=== PATIENT | female | born 1975 | race Caucasian/White ===

== ENCOUNTER 2016-04-05 17:32 | Emergency (ER) | payer OTHER ==
[~2016-04-05] VITALS: Ht 162.6 cm; Wt 111.8 kg
[~2016-04-05 17:32] MED LIST: ADVA500A INH; AMLO10 PO; CYMB60CA PO; FE FCAP; MONT10TA2 PO; PERC7.5T13 PO; PREV30CA11 PO; PROM25TA5 PO; VENTAER INH; XANA1TAB2 PO; ZYRT10CA PO
[2016-04-05 17:34] VITALS: BP 212/98; PULSE 122; RESP 14; TEMP 98.7; O2SAT 97
[2016-04-05 18:25] LABS: BACTERIA, URINE FEW /hpf; BLOOD, URINE MOD (NEG); COMMENT (UR) CULT NOT INDICATED; CULTURE IF INDICATED CULT NOT INDICATED; GLUCOSE,URINE NEG (NEG); HYALINE CAST, URINE 1 /lpf (RARE); KETONE, URINE NEG (NEG); MUCUS URINE FEW /lpf (OCC); NITRITE,URINE NEG (NEG); PH, URINE 6.5 (5.0-8.5); SQUAMOUS EPITHELIAL CELL URINE 1 /hpf (0-5); URINE COLOR YELLOW (YELLW/STRAW)
[2016-04-06] MEDS ORDERED: ZOFR4TAB3 SL (06:42)
[2016-04-06] MEDS ORDERED: CIPR-9 PO (06:43)
== END 2016-04-05 22:18 | disposition left against medical advice (07) ==
LOC: NETRI 17:32
DX: R10.9 Unspecified abdominal pain (principal); Z53.21 Procedure and treatment not carried out due to patient leaving prior to being seen by health care provider
CPT/HCPCS: 81001; 99281

== ENCOUNTER 2016-04-06 05:12 | Emergency (ER) | payer OTHER ==
[~2016-04-06] VITALS: Ht 162.6 cm; Wt 111.5 kg
[2016-04-06 05:26] VITALS: BP 157/99; PULSE 87; RESP 16; TEMP 98.2; O2SAT 98
[2016-04-06] MEDS ORDERED: SODIUM CHLOR 0.9% 1000 ML INJ 1,000 ML IV ONE (05:41)
[2016-04-06] MEDS ORDERED: HYDROmorphone HCL PF 1 MG/ML VIAL IVS ONE (05:45)
[2016-04-06] MEDS ORDERED: ONDANSETRON HCL 4 MG/2 ML VIAL IVP ONE (05:45)
[2016-04-06] MEDS ORDERED: SODIUM CHLORIDE 0.9% FLUSH 5 ML FLUSH IVF PRN (05:45)
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
[2016-04-06 06:04] LABS: BASOPHIL # 0.2 TH/MM3 (0-0.2); BASOPHIL % 1.2 % (0.0-2.0); BLOOD, URINE LARGE (NEG); EOSINOPHIL # 0.6 TH/MM3 (0-0.4); EOSINOPHIL % 4.5 % (0.0-4.0); GLUCOSE,URINE NEG (NEG); HEMATOCRIT 43.2 % (35.0-46.0); KETONE, URINE NEG (NEG); LYMPH % 28.2 % (9.0-44.0); LYMPHOCYTE # 3.6 TH/MM3 (1.0-4.8); MEAN CELL VOLUME 80.3 FL (80.0-100.0); MEAN CORPUSCULAR HEMOGLOBIN 26.2 PG (27.0-34.0); MEAN CORPUSCULAR HGB CONC 32.6 % (32.0-36.0); MONO % 4.1 % (0.0-8.0); NITRITE,URINE NEG (NEG); PLATELET COUNT 455 TH/MM3 (150-450); RED BLOOD COUNT 5.38 MIL/MM3 (4.00-5.30); RED CELL DISTRIBUTION WIDTH 14.8 % (11.6-17.2); WHITE BLOOD COUNT 12.9 TH/MM3 (4.0-11.0)
[2016-04-06 06:09] LABS: HEMO FLAGS AUTO DIFF
[2016-04-06 06:11] LABS: POTASSIUM 3.4 MEQ/L (3.5-5.1)
[2016-04-06 06:14] LABS: BICARBONATE 23.9 MEQ/L (21.0-32.0); METHOD OF COLLECTION CLEAN CATCH; MUCUS URINE FEW /lpf (OCC); URINE COLOR YELLOW (YELLW/STRAW)
[2016-04-06 06:15] LABS: BACTERIA, URINE MOD /hpf; RBC, URINE 100-200 /hpf (0-3); SQUAMOUS EPITHELIAL CELL URINE 0-5 /hpf (0-5)
[2016-04-06 06:16] LABS: COMMENT (UR) CULTURE INDICATED; CULTURE IF INDICATED CULTURE INDICATED
--- NOTE | 2016-04-06 06:27 | RADHPO ---
EXAM DATE/TIME: 04/06/2016 05:58 [facility] COMPARISON: CT ABDOMEN & PELVIS W/O CONTRAST, May 31, 2015, 0:24. INDICATIONS : Right flank pain. Micro hematuria. ORAL CONTRAST: No oral contrast ingested. RADIATION DOSE: 23.08 CTDIvol (mGy) MEDICAL HISTORY : Hypertension. SURGICAL HISTORY : Hysterectomy. ENCOUNTER: Initial ACUITY: 2 days PAIN SCALE: 8/10 LOCATION: Right flank TECHNIQUE: Volumetric scanning of the abdomen and pelvis was performed. Using automated exposure control and ad justment of the mA and/or kV according to patient size, radiation dose was kept as low as reasonably achievable to obtain optimal diagnostic quality images. FINDINGS: LOWER LUNGS: Linear scarring within the left base is stable. LIVER: Homogeneous density without lesion. There is no dilation of the biliary tree. No calcified gallston es. SPLEEN: Normal size without lesion. PANCREAS: Within normal limits. KIDNEYS: Normal in size and shape. There is no mass or hydronephrosis. A 1-2 mm stone is seen involving the r ight kidney. No ureteral stones. ADRENAL GLANDS: Within normal limits. VASCULAR: There is no aortic aneurysm. BOWEL/MESENTERY: The stomach, small bowel, and colon demonstrate no acute abnormality. There is no free intraperitone al air or fluid. ABDOMINAL WALL: Within normal limits. RETROPERITONEUM: There is no lymphadenopathy. BLADDER: No wall thickening or mass. REPRODUCTIVE: Within normal limits. INGUINAL: There is no lymphadenopathy or hernia. MUSCULOSKELETAL: Within normal limits for patient age. CONCLUSION: 1. Stable 1-2 mm nonobstructing right renal stone. Juancho Love Jr., MD on April 06, 2016 at 6:20 Board Certified Radiologist. This report was verified electronically.
[2016-04-06] MEDS ORDERED: ONDANSETRON HCL 4 MG/2 ML VIAL IV ONE (06:30)
[2016-04-06] MEDS ORDERED: HYDROmorphone HCL PF 1 MG/ML VIAL IVP ONE (06:30)
[2016-04-06 06:32] LABS: SCAN/DIFF AUTO DIFF CONFIRMED
[2016-04-06] MEDS ORDERED: ZOFR4TAB3 SL (06:42)
[2016-04-06] MEDS ORDERED: CIPR-9 PO (06:43)
[2016-04-06 06:55] VITALS: BP 127/76
== END 2016-04-06 06:58 | disposition home or self-care (01) ==
LOC: PHED 05:12
DX: N39.0 Urinary tract infection, site not specified (principal); G89.29 Other chronic pain; I10 Essential (primary) hypertension; F17.200 Nicotine dependence, unspecified, uncomplicated; Z87.442 Personal history of urinary calculi; Z86.2 Personal history of diseases of the blood and blood-forming organs and certain disorders involving the immune mechanism; Z86.79 Personal history of other diseases of the circulatory system; Z87.19 Personal history of other diseases of the digestive system; Z87.39 Personal history of other diseases of the musculoskeletal system and connective tissue; Z86.69 Personal history of other diseases of the nervous system and sense organs
CPT/HCPCS: 74176; 80048; 81001; 85025; 87086; 96361; 96374; 96375; 96376; 99284; J1170; J2405; J7030

== ENCOUNTER 2016-06-13 16:32 | Emergency (ER) | payer OTHER ==
[~2016-06-13] VITALS: Ht 162.6 cm; Wt 121.0 kg
[~2016-06-13 16:32] MED LIST changes: +CIPR-9 PO; +ZOFR4TAB3 SL
[2016-06-13 16:40] VITALS: BP 183/113; PULSE 120; RESP 22; TEMP 98.2; O2SAT 97
[2016-06-13 17:10] LABS: BLOOD, URINE LARGE (NEG); GLUCOSE,URINE NEG (NEG); KETONE, URINE NEG (NEG); NITRITE,URINE NEG (NEG); PH, URINE 6.5 (5.0-8.5)
[2016-06-13 17:11] VITALS: BP 158/93; PULSE 122; RESP 20; TEMP 98.5; O2SAT 96
[2016-06-13 17:17] LABS: BACTERIA, URINE FEW /hpf; METHOD OF COLLECTION CLEAN CATCH; URINE COLOR YELLOW (YELLW/STRAW)
[2016-06-13 17:18] LABS: COMMENT (UR) CULT NOT INDICATED; CULTURE IF INDICATED CULT NOT INDICATED; SQUAMOUS EPITHELIAL CELL URINE 0-5 /hpf (0-5)
[2016-06-13] MEDS ORDERED: SODIUM CHLOR 0.9% 1000 ML INJ 1,000 ML IV SCH (17:28)
[2016-06-13] MEDS ORDERED: ONDANSETRON HCL 4 MG/2 ML VIAL IVP ONE (17:30)
[2016-06-13] MEDS ORDERED: MORPHINE SULFATE 4 MG/ML INJ IV PUSH ONE ×2 (17:30→18:45)
[2016-06-13] MEDS ORDERED: SODIUM CHLORIDE 0.9% FLUSH 5 ML FLUSH IVF PRN (17:30)
[2016-06-13 17:43] LABS: AUTOMATED NEUTROPHIL # 11.1 TH/MM3 (1.8-7.7); BASOPHIL # 0.1 TH/MM3 (0-0.2); BASOPHIL % 0.4 % (0.0-2.0); EOSINOPHIL # 0.7 TH/MM3 (0-0.4); EOSINOPHIL % 3.9 % (0.0-4.0); HEMATOCRIT 39.7 % (35.0-46.0); LYMPH % 24.7 % (9.0-44.0); LYMPHOCYTE # 4.2 TH/MM3 (1.0-4.8); MEAN CELL VOLUME 78.9 FL (80.0-100.0); MEAN CORPUSCULAR HEMOGLOBIN 26.4 PG (27.0-34.0); MEAN CORPUSCULAR HGB CONC 33.5 % (32.0-36.0); PLATELET COUNT 456 TH/MM3 (150-450); RED BLOOD COUNT 5.03 MIL/MM3 (4.00-5.30); RED CELL DISTRIBUTION WIDTH 15.2 % (11.6-17.2); WHITE BLOOD COUNT 16.9 TH/MM3 (4.0-11.0)
[2016-06-13 17:48] VITALS: O2SAT 97
[2016-06-13 17:48] LABS: HEMO FLAGS DIFF FINAL
[2016-06-13 17:49] VITALS: BP 138/64; PULSE 91; RESP 18; O2SAT 97
--- NOTE | 2016-06-13 17:49 | PD ---
HPI Chief Complaint: Flank/Kidney Pain Time Seen by Provider: 17:28 Travel History International Travel<30 days: No Contact w/Intl Traveler<30days: No Traveled to known affect area: No History of Present Illness HPI 41-year-old female with history of previous kidney stones, presents to the ER today with left flank pain which she rates an 8 out of 10 starting this afternoon, she has been nauseous but denies any vomiting, urinary symptoms, fevers, or any other symptoms. She states that she has had kidney stones on the right hand has had no problems on the left in the past. She does not know any exacerbating or alleviating factors. Modifying Factors: None Associated Signs & Symptoms: Left flank pain Risk Factors: Kidney stone history PFSH Past Medical History Anemia: Yes Arthritis: Yes Asthma: Yes Anxiety: Yes Depression: Yes Heart Rhythm Problems: No Cancer: No Cardiovascular Problems: Yes High Cholesterol: No Chest Pain: No Congestive Heart Failure: No COPD: No Cerebrovascular Accident: No Diabetes: No Diminished Hearing: No Endocrine: No Gastrointestinal Disorders: Yes (REFLUX) GERD: Yes Genitourinary: Yes Headaches: Yes Hepatitis: No Hiatal Hernia: No Herniated Disk: Yes Hypertension: Yes Immune Disorder: No Implanted Vascular Access Dvce: No Kidney Stones: Yes Medical other: Yes (LUPUS LIKE CON'D ("BLOOD WON'T CLOT"), ANEMIA) Musculoskeletal: Yes Neurologic: Yes Psychiatric: Yes Reproductive: No Respiratory: Yes (ASTHMA) Immunizations Current: Yes Migraines: Yes Seizures: No Sleep Apnea: Yes (BIPAP) Thyroid Disease: No Influenza Vaccination: No ?: Not LMP: HYSTO Menopausal: Yes : 0 Para: 0 Ovarian Cysts: Yes Dilation and Curettage (D&C): Yes Past Surgical History Abdominal Surgery: No AICD: No Cardiac Surgery: Yes (ABLASION HYSTERECTOMY) Ear Surgery: Yes (LEFT EAR SURGERY) Endocrine Surgery: No Eye Surgery: No Genitourinary Surgery: Yes (KIDNEY STONES) Gynecologic Surgery: Yes (UTERINE ABLASION) Hysterectomy: Yes Joint Replacement: No Neurologic Surgery: No Pacemaker: No Thoracic Surgery: No Tympanostomy Tube: Yes (LEFT EAR surgery August 2013) Other Surgery: Yes (KIDNEY STONE, CARPEL DEMETRIO, SINUS) Social History Alcohol Use: No Tobacco Use: Yes (04/07 PPD) Substance Use: No Allergies-Medications (Allergen,Severity, Reaction): Coded Allergies: Aspirin (Verified Allergy, Severe, WHEEZES, 06/13/16) Benadryl (Verified Allergy, Severe, Respiratory Failure, 06/13/16) Contrast Media (Verified Allergy, Severe, Anaphylaxis, 06/13/16) Fentanyl (Verified Allergy, Severe, itching, 06/13/16) Ibuprofen (Verified Allergy, Severe, Respiratory Failure, 06/13/16) Peanut (Verified Allergy, Severe, THROAT CLOSES, 06/13/16) Penicillin (Verified Allergy, Severe, THROAT CLOSES, 06/13/16) Salicylates (Verified Allergy, Severe, 06/13/16) cannot breath Sulfa (Verified Allergy, Severe, Wheezing, 06/13/16) Reglan (Verified Allergy, Unknown, 06/13/16) PT STATMENT, "I JUST HAD A BAD REACTION TO IT" Tramadol (Verified Adverse Reaction, Unknown, UNKNOWN , 06/13/16) Reported Meds & Prescriptions Reported Meds & Active Scripts Active Zofran Odt (Ondansetron Odt) 4 Mg Tab 4 Mg SL Q6HR PRN Reported Integra (Multi-Vit/Iron-B Comp-Vit C) 62.5-62.5-40-3 mg Cap Percocet (Oxycodone-Acetaminophen) 7.5-325 mg Tab 1 Tab PO Q4H PRN Advair Diskus Inh (Fluticasone-Salmeterol Inh) 500-50 Mcg/Blist Aer 1 Puff INH BID Rinse mouth after use. Xanax (Alprazolam) 1 Mg Tab 1 Mg PO Q6H PRN Zyrtec Allergy (Cetirizine HCl) 10 Mg Cap 10 Mg PO DAILY Singulair (Montelukast Sodium) 10 Mg Tab 10 Mg PO HS Ventolin Hfa 18 GM Inh (Albuterol Sulfate) 90 Mcg/Act Aer 2 Puff INH Q4-6H PRN Prevacid (Lansoprazole) 30 Mg Capdr 40 Mg PO DAILY Norvasc (Amlodipine Besylate) 10 Mg Tab 2.5 Mg PO DAILY Cymbalta DR (Duloxetine HCl) 60 Mg Capdr 120 Mg PO DAILY Review of Systems Except as stated in HPI: all other systems reviewed are Neg Physical Exam Narrative GENERAL: Obese middle age white female, in moderate distress, pacing the room, awake and oriented 3. SKIN: Warm and dry. HEAD: Atraumatic. Normocephalic. EYES: Pupils equal and round. No scleral icterus. No injection or drainage. ENT: No nasal bleeding or discharge. Mucous membranes pink and moist. NECK: Trachea midline. No JVD. CARDIOVASCULAR: Regular rate and rhythm. No murmur appreciated. RESPIRATORY: No accessory muscle use. Clear to auscultation. Breath sounds equal bilaterally. GASTROINTESTINAL: Abdomen soft, obese, non-tender, nondistended. Hepatic and splenic margins not palpable. MUSCULOSKELETAL: No obvious deformities. No clubbing. No cyanosis. No edema. BACK: Left CVA tenderness. No rash. No point tenderness on palpation of the spine. NEUROLOGICAL: Awake and alert. No obvious cranial nerve deficits. Motor grossly within normal limits. Normal speech. PSYCHIATRIC: Appropriate mood and affect; insight and judgment normal. Data Data Last Documented VS Vital Signs Date Time Temp Pulse Resp B/P Pulse Ox O2 Delivery O2 Flow Rate FiO2 06/13/16 18:45 95 18 143/75 98 Room Air 06/13/16 17:11 98.5 Orders Urinalysis - C+S If Indicated (06/13/16 16:47) Complete Blood Count With Diff (06/13/16 17:28) Comprehensive Metabolic Panel (06/13/16 17:28) Lipase (06/13/16 17:28) Ct Abd/Pel W/O Iv Contrast (06/13/16 17:28) Iv Access Insert/Monitor (06/13/16 17:28) Ecg Monitoring (06/13/16 17:28) Oximetry (06/13/16 17:28) Ondansetron Inj (Zofran Inj) (06/13/16 17:30) Sodium Chlor 0.9% 1000 Ml Inj (Ns 1000 M (06/13/16 17:28) Sodium Chloride 0.9% Flush (Ns Flush) (06/13/16 17:30) Morphine Inj (Morphine Inj) (06/13/16 17:30) Morphine Inj (Morphine Inj) (06/13/16 18:45) Labs Laboratory Tests Test 06/13/16 06/13/16 16:54 17:40 Urine Collection Type CLEAN CATCH Urine Color YELLOW Urine Turbidity CLEAR Urine pH 6.5 Urine Specific [place] 1.016 Urine Protein TRACE mg/dL Urine Glucose (UA) NEG mg/dL Urine Ketones NEG mg/dL Urine Occult Blood LARGE Urine Nitrite NEG Urine Bilirubin NEG Urine Leukocyte Esterase NEG Urine RBC 20-24 /hpf Urine WBC 3-5 /hpf Urine Squamous Epithelial 0-5 /hpf Cells Urine Bacteria FEW /hpf Microscopic Urinalysis Comment CULT NOT INDICATED White Blood Count 16.9 TH/MM3 Red Blood Count 5.03 MIL/MM3 Hemoglobin 13.3 GM/DL Hematocrit 39.7 % Mean Corpuscular Volume 78.9 FL Mean Corpuscular Hemoglobin 26.4 PG Mean Corpuscular Hemoglobin 33.5 % Concent Red Cell Distribution Width 15.2 % Platelet Count 456 TH/MM3 Mean Platelet Volume 7.6 FL Neutrophils (%) (Auto) 66.0 % Lymphocytes (%) (Auto) 24.7 % Monocytes (%) (Auto) 5.0 % Eosinophils (%) (Auto) 3.9 % Basophils (%) (Auto) 0.4 % Neutrophils # (Auto) 11.1 TH/MM3 Lymphocytes # (Auto) 4.2 TH/MM3 Monocytes # (Auto) 0.8 TH/MM3 Eosinophils # (Auto) 0.7 TH/MM3 Basophils # (Auto) 0.1 TH/MM3 CBC Comment DIFF FINAL Differential Comment Sodium Level 139 MEQ/L Potassium Level 3.5 MEQ/L Chloride Level 103 MEQ/L Carbon Dioxide Level 27.9 MEQ/L Anion Gap 8 MEQ/L Blood Urea Nitrogen 7 MG/DL Creatinine 0.65 MG/DL Estimat Glomerular Filtration 101 ML/MIN Rate Random Glucose 134 MG/DL Calcium Level 8.7 MG/DL Total Bilirubin 0.2 MG/DL Aspartate Amino Transf 14 U/L (AST/SGOT) Alanine Aminotransferase 29 U/L (ALT/SGPT) Alkaline Phosphatase 176 U/L Total Protein 7.5 GM/DL Albumin 3.3 GM/DL Lipase 102 U/L [facility] Medical Decision Making Medical Screen Exam Complete: Yes Emergency Medical Condition: Yes Medical Record Reviewed: Yes Interpretation(s) Laboratory Tests Test 06/13/16 06/13/16 16:54 17:40 Urine Occult Blood LARGE (NEG) Urine RBC 20-24 /hpf (0-3) Urine Bacteria FEW /hpf (NONE) White Blood Count 16.9 TH/MM3 (4.0-11.0) Mean Corpuscular Volume 78.9 FL (80.0-100.0) Mean Corpuscular Hemoglobin 26.4 PG (27.0-34.0) Platelet Count 456 TH/MM3 (150-450) Neutrophils # (Auto) 11.1 TH/MM3 (1.8-7.7) Eosinophils # (Auto) 0.7 TH/MM3 (0-0.4) Random Glucose 134 MG/DL (74-106) Aspartate Amino Transf 14 U/L (15-37) (AST/SGOT) Alkaline Phosphatase 176 U/L (45-117) Albumin 3.3 GM/DL (3.4-5.0) Differential Diagnosis Left flank painrenal colic versus pyelonephritis versus musculoskeletal versus malingering Narrative Course Lab work shows hematuria with no signs of UTI. CAT scan did not reveal any signs of acute renal colic. Patient had been given IV fluids, morphine, and Zofran in the ER. At this point, my plan would be to release her with symptomatic relief or pain and follow-up to primary care physician. Return for any worsening in symptoms as necessary. The plan has been discussed with her and she states understanding. Patient states she has Percocets at home which she can take for pain. I will give her Zofran. Diagnosis Primary Impression: Left flank pain Med/Other Pt SpecificInfo: Prescription(s) given Scripts Ondansetron Odt (Zofran Odt)4 Mg Tab4 Mg SL Q6HR PRN (Nausea/Vomiting) #7 TAB Ref 0 Prov:Alf Murcia MD 06/13/16 Disposition: 01 DISCHARGE HOME Condition: Stable Alf Murcia MD Jun 13, 2016 17:49
[2016-06-13 17:51] LABS: CHLORIDE 103 MEQ/L (98-107); POTASSIUM 3.5 MEQ/L (3.5-5.1); SODIUM (NA) 139 MEQ/L (136-145)
[2016-06-13 17:55] LABS: ANION GAP 8 MEQ/L (5-15); BICARBONATE 27.9 MEQ/L (21.0-32.0); BLOOD UREA NITROGEN 7 MG/DL (7-18)
[2016-06-13 17:58] LABS: ALT (GPT) 29 U/L (10-53); AST (GOT) 14 U/L (15-37); GLOMERULAR FILTRATION RATE 101 ML/MIN (>89)
[2016-06-13 17:59] LABS: TOTAL BILIRUBIN ADULT 0.2 MG/DL (0.2-1.0)
[2016-06-13 18:01] LABS: ALKALINE PHOSPHATASE 176 U/L (45-117)
--- NOTE | 2016-06-13 18:35 | RADHPO ---
EXAM DATE/TIME: 06/13/2016 18:11 [facility] COMPARISON: No previous studies available for comparison. INDICATIONS : Left flank pain. ORAL CONTRAST: No oral contrast ingested. RADIATION DOSE: 27.92 CTDIvol (mGy) MEDICAL HISTORY : Cardiovascular disease. SURGICAL HISTORY : Hysterectomy. ENCOUNTER: Initial ACUITY: 1 day PAIN SCALE: 5/10 LOCATION: Left Flank TECHNIQUE: Volumetric scanning of the abdomen and pelvis was performed. Using automated exposure control and ad justment of the mA and/or kV according to patient size, radiation dose was kept as low as reasonably achievable to obtain optimal diagnostic quality images. FINDINGS: Lung bases clear except minimal linear scarring. Small hiatal hernia. Mild fatty liver. No acute find ings in the spleen, adrenals, kidneys or pancreas. Stable tiny 1 mm calculus upper pole right kidney. No ureteral or bladder calculi. No bladder calculi. No free fluid. No bowel obstruction. No adenopathy. Postoperative hysterectomy. No significant change from April 06. CONCLUSION: 1. Stable tiny 1 mm right renal calculus. No ureteral calculi or obstructive uropathy. No bladder andreas culi. Previous hysterectomy. No acute findings. 2. Small hiatal hernia. Zoran Randall MD on June 13, 2016 at 18:27 Board Certified Radiologist. This report was verified electronically.
[2016-06-13 18:45] VITALS: BP 143/75; PULSE 95; RESP 18; O2SAT 98
[2016-06-13] MEDS ORDERED: ZOFR4TAB3 SL (18:48)
[2016-06-13 19:48] VITALS: BP 171/81; PULSE 97; RESP 20; O2SAT 96
[2016-06-13] MEDS ORDERED: ACETAMINOPHEN 325 MG TAB PO ONE (20:15)
--- NOTE | 2016-06-13 20:35 | PD ---
Data Data Last Documented VS Vital Signs Date Time Temp Pulse Resp B/P Pulse Ox O2 Delivery O2 Flow Rate FiO2 06/13/16 19:48 97 20 171/81 96 06/13/16 18:45 Room Air 06/13/16 17:11 98.5 Orders Urinalysis - C+S If Indicated (06/13/16 16:47) Complete Blood Count With Diff (06/13/16 17:28) Comprehensive Metabolic Panel (06/13/16 17:28) Lipase (06/13/16 17:28) Ct Abd/Pel W/O Iv Contrast (06/13/16 17:28) Iv Access Insert/Monitor (06/13/16 17:28) Ecg Monitoring (06/13/16 17:28) Oximetry (06/13/16 17:28) Ondansetron Inj (Zofran Inj) (06/13/16 17:30) Sodium Chlor 0.9% 1000 Ml Inj (Ns 1000 M (06/13/16 17:28) Sodium Chloride 0.9% Flush (Ns Flush) (06/13/16 17:30) Morphine Inj (Morphine Inj) (06/13/16 17:30) Morphine Inj (Morphine Inj) (06/13/16 18:45) Acetaminophen (Tylenol) (06/13/16 20:15) Labs Laboratory Tests Test 06/13/16 06/13/16 16:54 17:40 Urine Collection Type CLEAN CATCH Urine Color YELLOW Urine Turbidity CLEAR Urine pH 6.5 Urine Specific [place] 1.016 Urine Protein TRACE mg/dL Urine Glucose (UA) NEG mg/dL Urine Ketones NEG mg/dL Urine Occult Blood LARGE Urine Nitrite NEG Urine Bilirubin NEG Urine Leukocyte Esterase NEG Urine RBC 20-24 /hpf Urine WBC 3-5 /hpf Urine Squamous Epithelial 0-5 /hpf Cells Urine Bacteria FEW /hpf Microscopic Urinalysis Comment CULT NOT INDICATED White Blood Count 16.9 TH/MM3 Red Blood Count 5.03 MIL/MM3 Hemoglobin 13.3 GM/DL Hematocrit 39.7 % Mean Corpuscular Volume 78.9 FL Mean Corpuscular Hemoglobin 26.4 PG Mean Corpuscular Hemoglobin 33.5 % Concent Red Cell Distribution Width 15.2 % Platelet Count 456 TH/MM3 Mean Platelet Volume 7.6 FL Neutrophils (%) (Auto) 66.0 % Lymphocytes (%) (Auto) 24.7 % Monocytes (%) (Auto) 5.0 % Eosinophils (%) (Auto) 3.9 % Basophils (%) (Auto) 0.4 % Neutrophils # (Auto) 11.1 TH/MM3 Lymphocytes # (Auto) 4.2 TH/MM3 Monocytes # (Auto) 0.8 TH/MM3 Eosinophils # (Auto) 0.7 TH/MM3 Basophils # (Auto) 0.1 TH/MM3 CBC Comment DIFF FINAL Differential Comment Sodium Level 139 MEQ/L Potassium Level 3.5 MEQ/L Chloride Level 103 MEQ/L Carbon Dioxide Level 27.9 MEQ/L Anion Gap 8 MEQ/L Blood Urea Nitrogen 7 MG/DL Creatinine 0.65 MG/DL Estimat Glomerular Filtration 101 ML/MIN Rate Random Glucose 134 MG/DL Calcium Level 8.7 MG/DL Total Bilirubin 0.2 MG/DL Aspartate Amino Transf 14 U/L (AST/SGOT) Alanine Aminotransferase 29 U/L (ALT/SGPT) Alkaline Phosphatase 176 U/L Total Protein 7.5 GM/DL Albumin 3.3 GM/DL Lipase 102 U/L [facility] Medical Record Reviewed: Yes Supervised Visit with TULIO: No Narrative Course CBC & BMP Diagram 06/13/16 17:40 The LFTs are essentially unremarkable The lipase is [address] reveals a 1 mm nonobstructing stone in the right kidney with no sign of obstruction and no other acute disease seen on the cross sectional images I was asked by the MEGHA Chadwick to see the patient at about 7:50-8:00 PM. Patient was evaluated at 8:10 PM by me. Since her arrival to the ER approximately 4 hours and 15 minutes ago and interval left ear pain has developed as well as a generalized headache. The patient states typically morphine causes a headache for her. The patient specifically requested Dilaudid in discussion w RN. The patient stated if she had received Dilaudid as initial analgesic intervention it would have precluded the cephalgia and L otalgia. Pt suggests she might be septic at time of my interview. Left TM appears intact w/o erythema of sign of AOM. She has a hx of mastoiditis and follows with Dr Starr. Review of her HR over past five years reveals a predominance of tachycardic rhythms or high normal heart rates. Upon check her R radial pulse she suddenly moved it and stated she has chronic pain there as well. Review of the patient's white blood cell count reveals leukocytosis on each and every blood draw since she first was seen here August 09, 2012, rendering the mild leukocytosis present today as nonspecific. Pt is agreeable with treatment plan for Tylenol. We discussed risks of recurrent opioid exposure. We discussed the patient's allergy profile as suggestive of opioid dependence and the patient verbalized understanding. The likelihood of a septic ENT process is considered quite unlikely based on exam, review of blood work and review of vital signs over past five years with more than a few dozen ER visits. Abdominopelvic emergencies have been excluded to within a reasonable degree. By means of patient's own reasoning, "All of this would have been avoided if I received dilaudid initially," it not unreasonable though unfortunate to conclude that chronic opioid exposure has caused a dependency in this case perhaps coupled with a hypergesic state. Continued exposure to IV dilaudid is considered against the patient's best interest. Diagnosis Primary Impression: Left flank pain Referrals: Jonh Morel MD (PCP) call for appointment Adam Starr MD 2 days Patient Instructions: General Instructions, Narcotic given in the ED, Flank Pain (ED) Departure Forms: Tests/Procedures Scripts Ondansetron Odt (Zofran Odt)4 Mg Tab4 Mg SL Q6HR PRN (Nausea/Vomiting) #7 TAB Ref 0 Prov:Alf Murcia MD 06/13/16 Disposition: 01 DISCHARGE HOME Condition: Stable Charly Manning MD Jun 13, 2016 20:35
== END 2016-06-13 20:50 | disposition home or self-care (01) ==
LOC: PHED 16:32
DX: R10.84 Generalized abdominal pain (principal); I10 Essential (primary) hypertension; D64.9 Anemia, unspecified; M19.90 Unspecified osteoarthritis, unspecified site; F41.8 Other specified anxiety disorders; F17.210 Nicotine dependence, cigarettes, uncomplicated
CPT/HCPCS: 74176; 80053; 81001; 83690; 85025; 96361; 96374; 96375; 96376; 99284; J2270; J2405; J7030

== ENCOUNTER 2016-08-22 12:01 | Inpatient (IN) | payer OTHER, MEDICARE ==
[~2016-08-22] VITALS: Ht 162.6 cm; Wt 132.4 kg
[~2016-08-22 12:01] MED LIST changes: -CIPR-9 PO; -PROM25TA5 PO
[2016-08-22 12:03] VITALS: BP 208/106; PULSE 122; RESP 24; TEMP 98.2; O2SAT 98
[2016-08-22 12:44] VITALS: O2SAT 98
[2016-08-22] MEDS ORDERED: ONDANSETRON HCL 4 MG/2 ML VIAL IV PUSH ONE (12:45)
[2016-08-22] MEDS ORDERED: MORPHINE SULFATE 4 MG/ML INJ IV PUSH ONE ×2 (12:45→15:45)
[2016-08-22] MEDS: SODIUM CHLOR 0.9% 1000 ML INJ 1,000 ML IV SCH ×2 (12:46→23:42)
--- NOTE | 2016-08-22 12:55 | RADRPT ---
EXAM DATE/TIME: 08/22/2016 12:42 [facility] COMPARISON: CHEST SINGLE AP, July 14, 2015, 9:13. INDICATIONS : Palpitations MEDICAL HISTORY : Cardiovascular disease. SURGICAL HISTORY : Hysterectomy. ENCOUNTER: Initial ACUITY: 3 days PAIN SCORE: 10/10 LOCATION: Bilateral chest FINDINGS: A single view of the chest demonstrates the lungs to be symmetrically aerated without evidence of mas s, infiltrate or effusion. The cardiomediastinal contours are unremarkable. Osseous structures are intact. CONCLUSION: No acute disease. Terrance Pagan MD on August 22, 2016 at 12:53 Board Certified Radiologist. This report was verified electronically.
--- NOTE | 2016-08-22 13:00 | PD ---
HPI Chief Complaint: Headache Time Seen by Provider: 12:21 Travel History International Travel<30 days: No Contact w/Intl Traveler<30days: No Traveled to known affect area: No History of Present Illness HPI 41-year-old female complains of headache, dizziness, nausea, left ear pain. Patient states the symptoms started 3 days ago. Patient states that she has history of chronic recurrent headache, mastoiditis and was admitted in the past. IV antibiotics. Patient also has history of anemia, arthritis, asthma, anxiety and depression, GERD, kidney stone, chronic back pain, hypertension, migraine and sleep apnea. Patient on CPAP at home. Patient status post left ear tympanoplasty. Patient denies any fever chills. Patient denies any visual change. Patient denies any neck pain. Patient denies any chest pain or shortness of breath. Patient denies abdominal pain. Patient denies any dysuria or frequency. Patient stated she noticed small area of skin tenderness and swelling below the left breast area on the left chest wall. PFSH Past Medical History Hx Anticoagulant Therapy: No Anemia: Yes Arthritis: Yes Asthma: Yes Anxiety: Yes Depression: Yes Heart Rhythm Problems: No Cancer: No Cardiovascular Problems: Yes (HTN ,) High Cholesterol: No Chest Pain: No Congestive Heart Failure: No COPD: No Cerebrovascular Accident: No Diabetes: No Diminished Hearing: No Endocrine: No Gastrointestinal Disorders: Yes (REFLUX) GERD: Yes Genitourinary: Yes Headaches: Yes Hepatitis: No Hiatal Hernia: No Herniated Disk: Yes Hypertension: Yes Immune Disorder: No Implanted Vascular Access Dvce: No Kidney Stones: Yes Medical other: Yes (LUPUS LIKE CON'D ("BLOOD WON'T CLOT"), ANEMIA) Musculoskeletal: Yes Neurologic: Yes Psychiatric: Yes Reproductive: No Respiratory: Yes (ASTHMA) Immunizations Current: Yes Migraines: Yes Seizures: No Sleep Apnea: Yes (BIPAP) Thyroid Disease: No ?: Not Menopausal: Yes : 0 Para: 0 Ovarian Cysts: Yes Dilation and Curettage (D&C): Yes Past Surgical History Abdominal Surgery: No AICD: No Cardiac Surgery: Yes (ABLASION HYSTERECTOMY) Ear Surgery: Yes (LEFT EAR SURGERY) Endocrine Surgery: No Eye Surgery: No Genitourinary Surgery: Yes (KIDNEY STONES) Gynecologic Surgery: Yes (UTERINE ABLASION) Hysterectomy: Yes Joint Replacement: No Neurologic Surgery: No Pacemaker: No Thoracic Surgery: No Tympanostomy Tube: Yes (LEFT EAR surgery August 2013) Other Surgery: Yes (KIDNEY STONE, CARPEL DEMETRIO, SINUS) Social History Alcohol Use: No Tobacco Use: No Substance Use: No Allergies-Medications (Allergen,Severity, Reaction): Coded Allergies: Aspirin (Verified Allergy, Severe, WHEEZES, 08/22/16) Benadryl (Verified Allergy, Severe, Respiratory Failure, 08/22/16) Contrast Media (Verified Allergy, Severe, Anaphylaxis, 08/22/16) Fentanyl (Verified Allergy, Severe, itching, 08/22/16) Ibuprofen (Verified Allergy, Severe, Respiratory Failure, 08/22/16) Peanut (Verified Allergy, Severe, THROAT CLOSES, 08/22/16) Penicillin (Verified Allergy, Severe, THROAT CLOSES, 08/22/16) Salicylates (Verified Allergy, Severe, 08/22/16) cannot breath Sulfa (Verified Allergy, Severe, Wheezing, 08/22/16) Reglan (Verified Allergy, Unknown, 08/22/16) PT STATMENT, "I JUST HAD A BAD REACTION TO IT" Tramadol (Verified Adverse Reaction, Unknown, UNKNOWN , 08/22/16) Reported Meds & Prescriptions Reported Meds & Active Scripts Active Zofran Odt (Ondansetron Odt) 4 Mg Tab 4 Mg SL Q6HR PRN Zofran Odt (Ondansetron Odt) 4 Mg Tab 4 Mg SL Q6HR PRN Reported Integra (Multi-Vit/Iron-B Comp-Vit C) 62.5-62.5-40-3 mg Cap Percocet (Oxycodone-Acetaminophen) 7.5-325 mg Tab 1 Tab PO Q4H PRN Advair Diskus Inh (Fluticasone-Salmeterol Inh) 500-50 Mcg/Blist Aer 1 Puff INH BID Rinse mouth after use. Xanax (Alprazolam) 1 Mg Tab 1 Mg PO Q6H PRN Zyrtec Allergy (Cetirizine HCl) 10 Mg Cap 10 Mg PO DAILY Singulair (Montelukast Sodium) 10 Mg Tab 10 Mg PO HS Ventolin Hfa 18 GM Inh (Albuterol Sulfate) 90 Mcg/Act Aer 2 Puff INH Q4-6H PRN Prevacid (Lansoprazole) 30 Mg Capdr 40 Mg PO DAILY Norvasc (Amlodipine Besylate) 10 Mg Tab 2.5 Mg PO DAILY Cymbalta DR (Duloxetine HCl) 60 Mg Capdr 120 Mg PO DAILY Review of Systems General / Constitutional: No: Fever Eyes: No: Visual changes HENT: Positive: Headaches, Lightheadedness, Earache Cardiovascular: No: Chest Pain or Discomfort Respiratory: No: Shortness of Breath Gastrointestinal: Positive: Nausea, No: Abdominal Pain Genitourinary: No: Dysuria Musculoskeletal: No: Pain Skin: No Rash Neurologic: No: Weakness Psychiatric: No: Depression Endocrine: No: Polydipsia Hematologic/Lymphatic: No: Easy Bruising Physical Exam Narrative GENERAL: Well-nourished, well-developed patient. SKIN: Focused skin assessment warm/dry. Patient has small area of mild redness swelling tenderness left anterior chest wall below the left breast. No induration no discharge. HEAD: Normocephalic. EYES: No scleral icterus. No injection or drainage. Pupils 3 mm equal reactive. TM: Clear. Throat: Nonerythematous. NECK: Supple, trachea midline. No JVD or lymphadenopathy. No meningismus CARDIOVASCULAR: Mild tachycardia rate and rhythm without murmurs, gallops, or rubs. RESPIRATORY: Breath sounds equal bilaterally. No accessory muscle use. GASTROINTESTINAL: Abdomen soft, non-tender, nondistended. MUSCULOSKELETAL: No cyanosis, or edema. BACK: Nontender without obvious deformity. No CVA tenderness. Neurologic exam normal. Data Data Last Documented VS Vital Signs Date Time Temp Pulse Resp B/P Pulse Ox O2 Delivery O2 Flow Rate FiO2 08/22/16 15:36 100 34 137/77 08/22/16 12:44 98 Room Air 08/22/16 12:03 98.2 Orders Complete Blood Count With Diff (08/22/16 12:36) Comprehensive Metabolic Panel (08/22/16 12:36) Prothrombin Time / Inr (Pt) (08/22/16 12:36) Act Partial Throm Time (Ptt) (08/22/16 12:36) C-Reactive Protein (Crp) (08/22/16 12:36) Urinalysis - C+S If Indicated (08/22/16 12:36) Westergren Sedimentation Rate (08/22/16 12:36) Chest, Single Ap (08/22/16 12:36) Ct Brain W/O Iv Contrast(Rout) (08/22/16 12:36) Iv Access Insert/Monitor (08/22/16 12:36) Ecg Monitoring (08/22/16 12:36) Oximetry (08/22/16 12:36) Morphine Inj (Morphine Inj) (08/22/16 12:45) Ondansetron Inj (Zofran Inj) (08/22/16 12:45) Sodium Chlor 0.9% 1000 Ml Inj (Ns 1000 M (08/22/16 12:45) Ct Temporal Bone W/O Iv Cont (08/22/16 ) Lactic Acid (08/22/16 12:43) Blood Culture (08/22/16 12:43) Morphine Inj (Morphine Inj) (08/22/16 15:45) Ceftriaxone Inj (Rocephin Inj) (08/22/16 15:45) Clindamycin Inj (Cleocin Inj) (08/22/16 15:45) Potassium Chloride (Kcl) (08/22/16 16:00) Labs Laboratory Tests Test 08/22/16 08/22/16 12:30 13:20 White Blood Count 18.7 TH/MM3 Red Blood Count 5.01 MIL/MM3 Hemoglobin 13.3 GM/DL Hematocrit 39.4 % Mean Corpuscular Volume 78.7 FL Mean Corpuscular Hemoglobin 26.5 PG Mean Corpuscular Hemoglobin 33.6 % Concent Red Cell Distribution Width 15.8 % Platelet Count 450 TH/MM3 Mean Platelet Volume 8.0 FL Neutrophils (%) (Auto) 70.8 % Lymphocytes (%) (Auto) 19.7 % Monocytes (%) (Auto) 5.2 % Eosinophils (%) (Auto) 3.3 % Basophils (%) (Auto) 1.0 % Neutrophils # (Auto) 13.2 TH/MM3 Lymphocytes # (Auto) 3.7 TH/MM3 Monocytes # (Auto) 1.0 TH/MM3 Eosinophils # (Auto) 0.6 TH/MM3 Basophils # (Auto) 0.2 TH/MM3 CBC Comment DIFF FINAL Differential Comment Erythrocyte Sedimentation Rate 58 mm/hr Prothrombin Time 10.2 SEC Prothromb Time International 0.9 RATIO Ratio Activated Partial 41.3 SEC Thromboplast Time Sodium Level 138 MEQ/L Potassium Level 3.2 MEQ/L Chloride Level 100 MEQ/L Carbon Dioxide Level 27.5 MEQ/L Anion Gap 11 MEQ/L Blood Urea Nitrogen 4 MG/DL Creatinine 0.79 MG/DL Estimat Glomerular Filtration 81 ML/MIN Rate Random Glucose 201 MG/DL Calcium Level 9.0 MG/DL Total Bilirubin 0.1 MG/DL Aspartate Amino Transf 16 U/L (AST/SGOT) Alanine Aminotransferase 29 U/L (ALT/SGPT) Alkaline Phosphatase 214 U/L C-Reactive Protein 7.20 MG/DL Total Protein 8.0 GM/DL Albumin 3.5 GM/DL Lactic Acid Level 2.7 mmol/L MDM Medical Decision Making Medical Screen Exam Complete: Yes Emergency Medical Condition: Yes Interpretation(s) Last Impressions Head CT 08/22/16 1236 Signed Impressions: Service Date/Time: Monday, August 22, 2016 13:05 - CONCLUSION: Normal examination. Terrance Pagan MD Chest X-Ray 08/22/16 1236 Signed Impressions: Service Date/Time: Monday, August 22, 2016 12:42 - CONCLUSION: No acute disease. Terrance Pagan MD Temporal Bone CT 08/22/16 0000 Signed Impressions: Service Date/Time: Monday, August 22, 2016 13:05 - CONCLUSION: 1. Mucosal thickening right maxillary sinus. 2. Minimal bilateral mastoid air cell fluid suspected inferiorly. Terrance Pagan MD 1436 PM. CBC WBC 18.7. Sedimentation rate 58. Potassium 3.2. Lactic acid 2.7. Glucose 201. Alkaline phosphatase 214. C-reactive protein 7.2. Differential Diagnosis Differential diagnosis including migraine headache, tension headache, cluster headache, mastoiditis, dehydration, sepsis. Narrative Course 41-year-old female with headache, ear pain, mild tachycardia and elevated blood pressure. Patient has history of migraine, mastoiditis and recurrent infection. Morphine 4 mg IV. Zofran 4 mg IV. Normal saline solution 100 cc an hour. [place] of morphine 4 mg IV. Rocephin 1 g IV. Clindamycin 600 mg IV. KCl 40 mEq by mouth given. Diagnosis Primary Impression: Mastoiditis Qualified Code: H70.92 - Mastoiditis, left Additional Impression: Sinusitis Qualified Code: J01.00 - Subacute maxillary sinusitis Bassam Wall MD August 22, 2016 13:00
[2016-08-22 13:03] LABS: AUTOMATED NEUTROPHIL # 13.2 TH/MM3 (1.8-7.7); BASOPHIL # 0.2 TH/MM3 (0-0.2); EOSINOPHIL # 0.6 TH/MM3 (0-0.4); EOSINOPHIL % 3.3 % (0.0-4.0); HEMATOCRIT 39.4 % (35.0-46.0); HEMO FLAGS DIFF FINAL; LYMPH % 19.7 % (9.0-44.0); LYMPHOCYTE # 3.7 TH/MM3 (1.0-4.8); MEAN CELL VOLUME 78.7 FL (80.0-100.0); MEAN CORPUSCULAR HEMOGLOBIN 26.5 PG (27.0-34.0); MEAN CORPUSCULAR HGB CONC 33.6 % (32.0-36.0); MONO % 5.2 % (0.0-8.0); NEUT % 70.8 % (16.0-70.0); PLATELET COUNT 450 TH/MM3 (150-450); RED BLOOD COUNT 5.01 MIL/MM3 (4.00-5.30); RED CELL DISTRIBUTION WIDTH 15.8 % (11.6-17.2); WHITE BLOOD COUNT 18.7 TH/MM3 (4.0-11.0)
[2016-08-22 13:15] LABS: APTT (PATIENT) 41.3 SEC (24.3-30.1); INTERNATIONAL NORMALIZED RATIO 0.9 RATIO; PROTHROMBIN TIME - PATIENT 10.2 SEC (9.8-11.6)
--- NOTE | 2016-08-22 13:17 | RADRPT ---
EXAM DATE/TIME: 08/22/2016 13:05 [facility] COMPARISON: CT BRAIN W/O CONTRAST, February 07, 2016, 21:35. INDICATIONS : Headache with dizziness for 3 days, left earache with increased blood pressure. RADIATION DOSE: 65.52 CTDIvol (mGy) MEDICAL HISTORY : Cardiovascular disease. Hypertension. SURGICAL HISTORY : Hysterectomy. ENCOUNTER: Initial ACUITY: 3 days PAIN SCALE: 10/10 LOCATION: Bilateral cranial TECHNIQUE: Multiple contiguous axial images were obtained of the head. Using automated exposure control and adj ustment of the mA and/or kV according to patient size, radiation dose was kept as low as reasonably a chievable to obtain optimal diagnostic quality images. FINDINGS: CEREBRUM: The ventricles are normal for age. No evidence of midline shift, mass lesion, hemorrhage or acute in farction. No extra-axial fluid collections are seen. POSTERIOR FOSSA: The cerebellum and brainstem are intact. The 4th ventricle is midline. The cerebellopontine angle i s unremarkable. EXTRACRANIAL: The visualized portion of the orbits is intact. SKULL: The calvaria is intact. No evidence of skull fracture. CONCLUSION: Normal examination. Terrance Pagan MD on August 22, 2016 at 13:15 Board Certified Radiologist. This report was verified electronically.
[2016-08-22 13:28] LABS: ANION GAP 11 MEQ/L (5-15); AST (GOT) 16 U/L (15-37); BICARBONATE 27.5 MEQ/L (21.0-32.0); BLOOD UREA NITROGEN 4 MG/DL (7-18); CHLORIDE 100 MEQ/L (98-107); GLOMERULAR FILTRATION RATE 81 ML/MIN (>89); POTASSIUM 3.2 MEQ/L (3.5-5.1); SODIUM (NA) 138 MEQ/L (136-145)
[2016-08-22 13:32] LABS: ALKALINE PHOSPHATASE 214 U/L (45-117); ALT (GPT) 29 U/L (10-53); TOTAL BILIRUBIN ADULT 0.1 MG/DL (0.2-1.0)
--- NOTE | 2016-08-22 13:48 | RADRPT ---
EXAM DATE/TIME: 08/22/2016 13:05 [facility] COMPARISON: CT TEMPORAL BONE W/O IV CONT, October 04, 2015, 19:42. INDICATIONS : Left ear surgery in the past with new earache RADIATION DOSE: 82.13 CTDIvol (mGy) MEDICAL HISTORY : Cardiovascular disease. Hypertension. SURGICAL HISTORY : Hysterectomy. ENCOUNTER: Initial ACUITY: 3 days PAIN SCORE: 10/10 LOCATION: Right ear TECHNIQUE: Volumetric scanning of the temporal bone was performed. Using automated exposure control and adjustm ent of the mA and/or kV according to patient size, radiation dose was kept as low as reasonably achie vable to obtain optimal diagnostic quality images. FINDINGS: OSSICLES: The ossicles are intact. The oval window niche is intact. MASTOID AIR CELLS: There is minimal fluid in the bilateral mastoid air cells inferiorly. MIDDLE EAR: The epitympanum and hypotympanum are intact. Prussak's space and scutum are intact. The oval and rou nd window is intact. LABYRINTH: The cochlea and semicircular canals are normal in configuration without sclerosis. INTERNAL ACOUSTIC CANAL: Normal in size without erosion. The cerebellar-pontine angle is intact. JUGULAR FOSSA: Normal in size and position. FACIAL CANAL: The tympanic, genu and descending portions are intact. EXTERNAL ACOUSTIC CANAL: The bony and cartilaginous portions are intact. CONCLUSION: 1. Mucosal thickening right maxillary sinus. 2. Minimal bilateral mastoid air cell fluid suspected inferiorly. Terrance Pagan MD on August 22, 2016 at 13:41 Board Certified Radiologist. This report was verified electronically.
[2016-08-22 15:36] VITALS: BP 137/77; PULSE 100; RESP 34
[2016-08-22] MEDS ORDERED: CLINDAMYCIN INJ 600 MG in SODIUM CHLORIDE 0.9% INJ 100 ML IV ONE (15:45)
[2016-08-22] MEDS ORDERED: cefTRIAXone INJ 1,000 MG in SODIUM CHLORIDE 0.9% INJ 100 ML IV ONE (15:45)
[2016-08-22] MEDS ORDERED: POTASSIUM CHLORIDE 20 MEQ CONTROLLED RELEASE TAB PO ONE (16:00)
[2016-08-22 16:04] LABS: BLOOD, URINE NEG (NEG); COMMENT (UR) CULT NOT INDICATED; CULTURE IF INDICATED CULT NOT INDICATED; GLUCOSE,URINE 70 mg/dL (NEG); KETONE, URINE TRACE mg/dL (NEG); MUCUS URINE FEW /lpf (OCC); NITRITE,URINE NEG (NEG); PH, URINE 6.5 (5.0-8.5); SQUAMOUS EPITHELIAL CELL URINE <1 /hpf (0-5); URINE COLOR YELLOW (YELLW/STRAW)
[2016-08-22] MEDS ORDERED: SODIUM CHLOR 0.9% 1000 ML INJ 1,000 ML IV ONE (16:15)
[2016-08-22] MEDS ORDERED: ACETAMINOPHEN 325 MG TAB PO PRN (16:15)
[2016-08-22] MEDS ORDERED: ONDANSETRON HCL 4 MG/2 ML VIAL IV PUSH PRN (16:15)
[2016-08-22] MEDS ORDERED: ACETAMINOPHEN/HYDROcodone 325 MG/5 MG TAB PO PRN (16:15)
--- NOTE | 2016-08-22 16:16 | HHI.HP ---
[facility] Service [facility] Primary Care Physician Damaso Archuleta Do, MD Admission Diagnosis mastoiditis. Sinusitis. Cephalgia. Diagnoses: (1) Sinusitis Diagnosis: Principal (2) Severe sepsis Diagnosis: Principal Chief Complaint: headache Travel History International Travel<30 Days: No Contact w/Intl Traveler <30 Da: No Traveled to Known Affected Are: No Sepsis Criteria SIRS Criteria (2 or more): Heart rate over 90, WBC > 94856, < 4000 or > 10% bands Sepsis Criteria (SIRS+source): Infect source susp/known Severe Sepsis (+one): Lactate >2 History of Present Illness patient is a 41 y/o female with history of sinusitis who presented to ER with headache. she says that headache started few days ago. headache is more or less on the left side with some radiation to the right face. headache is a dull- aching type although she says that it was throbbing yesterday. headache was associated with nausea but with no emesis, vision changes or neck stiffness. she didn't have any fever. she doesn't report any nasal or post-nasal discharge. Review of Systems Constitutional: DENIES: Fever, Weight loss, Chills, Night Sweats Eyes: DENIES: Blurred vision, Diplopia, Vision loss, Double Vision Ears, nose, mouth, throat: DENIES: Tinnitus, Vertigo, Throat pain, Epistaxis Respiratory: DENIES: Apneas, Cough, Snoring, Wheezing, Hemoptysis, Sputum production, Shortness of breath Cardiovascular: DENIES: Chest pain, Palpitations, Syncope, Dyspnea on Exertion , PND, Lower Extremity Edema, Orthopnea, Claudication Gastrointestinal: COMPLAINS OF: Nausea, DENIES: Abdominal pain, Black stools, Bloody stools, Constipation, Diarrhea, Vomiting, Difficulty Swallowing, Anorexia Genitourinary: DENIES: Urinary frequency, Urgency, Hematuria, Dysuria Musculoskeletal: DENIES: Joint pain, Muscle aches, Stiffness, Joint Swelling Integumentary: DENIES: Rash Neurologic: COMPLAINS OF: Headache, DENIES: Abnormal gait, Localized weakness , Paresthesias, Seizures, Speech Problems, Tremor, Poor Balance Psychiatric: DENIES: Anxiety, Confusion, Mood changes, Depression, Hallucinations, Agitation, Suicidal Ideation, Homicidal Ideation, Delusions Past Family Social History Past Medical History asthma sinusitis lupus Past Surgical History hysterectomy facial surgery ear surgery Reported Medications Integra (Multi-Vit/Iron-B Comp-Vit C) 62.5-62.5-40-3 mg Cap Percocet (Oxycodone-Acetaminophen) 7.5-325 mg Tab 1 Tab PO Q4H PRN Advair Diskus Inh (Fluticasone-Salmeterol Inh) 500-50 Mcg/Blist Aer 1 Puff INH BID Rinse mouth after use. Xanax (Alprazolam) 1 Mg Tab 1 Mg PO Q6H PRN Zyrtec Allergy (Cetirizine HCl) 10 Mg Cap 10 Mg PO DAILY Singulair (Montelukast Sodium) 10 Mg Tab 10 Mg PO HS Ventolin Hfa 18 GM Inh (Albuterol Sulfate) 90 Mcg/Act Aer 2 Puff INH Q4-6H PRN Prevacid (Lansoprazole) 30 Mg Capdr 40 Mg PO DAILY Norvasc (Amlodipine Besylate) 10 Mg Tab 2.5 Mg PO DAILY Cymbalta DR (Duloxetine HCl) 60 Mg Capdr 120 Mg PO DAILY Allergies: Coded Allergies: Aspirin (Verified Allergy, Severe, WHEEZES, 08/22/16) Benadryl (Verified Allergy, Severe, Respiratory Failure, 08/22/16) Contrast Media (Verified Allergy, Severe, Anaphylaxis, 08/22/16) Fentanyl (Verified Allergy, Severe, itching, 08/22/16) Ibuprofen (Verified Allergy, Severe, Respiratory Failure, 08/22/16) Peanut (Verified Allergy, Severe, THROAT CLOSES, 08/22/16) Penicillin (Verified Allergy, Severe, THROAT CLOSES, 08/22/16) Salicylates (Verified Allergy, Severe, 08/22/16) cannot breath Sulfa (Verified Allergy, Severe, Wheezing, 08/22/16) Reglan (Verified Allergy, Unknown, 08/22/16) PT STATMENT, "I JUST HAD A BAD REACTION TO IT" Tramadol (Verified Adverse Reaction, Unknown, UNKNOWN , 08/22/16) Active Ordered Medications Current Medications Morphine Sulfate (Morphine Inj) 4 mg ONCE ONCE IV PUSH Last administered on 12:46; Start 08/22/16 at 12:45; Stop 08/22/16 at 12:46; Status DC Ondansetron HCl 4 mg 4 mg ONCE ONCE IV PUSH Last administered on 08/22/16 12: 46; Start 08/22/16 at 12:45; Stop 08/22/16 at 12:46; Status DC Sodium Chloride (NS 1000 ml Inj) 1,000 ml @ 125 mls/hr Q8H IV Last administered on 08/22/16 12:46; Start 08/22/16 at 12:45 Morphine Sulfate 4 mg 4 mg ONCE ONCE IV PUSH Last administered on 08/22/16 15 :45; Start 08/22/16 at 15:45; Stop 08/22/16 at 15:46; Status DC Ceftriaxone Sodium 1000 mg/ Sodium Chloride 100 ml @ 200 mls/hr ONCE ONCE IV Last administered on 08/22/16 15:45; Start 08/22/16 at 15:45; Stop 08/22/16 at 16:14 Clindamycin Phosphate/Sodium Chloride (Cleocin Inj/NS Inj) 104 ml @ 208 mls/hr ONCE ONCE IV ; Start 08/22/16 at 15:45; Stop 08/22/16 at 16:14 Potassium Chloride (KCl) 40 meq ONCE ONCE PO Last administered on 08/22/16 15 :52; Start 08/22/16 at 16:00; Stop 08/22/16 at 16:01; Status DC Family History not relevant to this admission. Social History no smoking or drinking. Physical Exam Vital Signs Vital Signs Date Time Temp Pulse Resp B/P Pulse Ox O2 Delivery O2 Flow Rate FiO2 08/22/16 15:36 100 34 137/77 08/22/16 12:44 98 Room Air 08/22/16 12:03 98.2 122 24 208/106 98 Room Air Physical Exam GENERAL: This is a well-nourished, well-developed patient, in no apparent distress. SKIN: No rashes, ecchymoses or lesions. Cool and dry. HEAD: Atraumatic. Normocephalic. No temporal or scalp tenderness. EYES: Pupils equal round and reactive. Extraocular motions intact. No scleral icterus. No injection or drainage. ENT: Nose without bleeding, purulent drainage or septal hematoma. Throat without erythema, tonsillar hypertrophy or exudate. Uvula midline. Airway patent. NECK: Trachea midline. No JVD or lymphadenopathy. Supple, nontender, no meningeal signs. CARDIOVASCULAR: Regular rate and rhythm without murmurs, gallops, or rubs. RESPIRATORY: Clear to auscultation. Breath sounds equal bilaterally. No wheezes , rales, or rhonchi. GASTROINTESTINAL: Abdomen soft, non-tender, nondistended. No hepato-splenomegaly , or palpable masses. No guarding. MUSCULOSKELETAL: Extremities without clubbing, cyanosis, or edema. No joint tenderness, effusion, or edema noted. No calf tenderness. Negative Homans sign bilaterally. NEUROLOGICAL: Awake and alert. Cranial nerves II through XII intact. Motor and sensory grossly within normal limits. Five out of 5 muscle strength in all muscle groups. Normal speech. Laboratory Laboratory Tests Test 08/22/16 08/22/16 08/22/16 12:30 13:20 15:25 White Blood Count 18.7 Red Blood Count 5.01 Hemoglobin 13.3 Hematocrit 39.4 Mean Corpuscular Volume 78.7 Mean Corpuscular Hemoglobin 26.5 Mean Corpuscular Hemoglobin 33.6 Concent Red Cell Distribution Width 15.8 Platelet Count 450 Mean Platelet Volume 8.0 Neutrophils (%) (Auto) 70.8 Lymphocytes (%) (Auto) 19.7 Monocytes (%) (Auto) 5.2 Eosinophils (%) (Auto) 3.3 Basophils (%) (Auto) 1.0 Neutrophils # (Auto) 13.2 Lymphocytes # (Auto) 3.7 Monocytes # (Auto) 1.0 Eosinophils # (Auto) 0.6 Basophils # (Auto) 0.2 CBC Comment DIFF FINAL Differential Comment Erythrocyte Sedimentation Rate 58 Prothrombin Time 10.2 Prothromb Time International 0.9 Ratio Activated Partial 41.3 Thromboplast Time Sodium Level 138 Potassium Level 3.2 Chloride Level 100 Carbon Dioxide Level 27.5 Anion Gap 11 Blood Urea Nitrogen 4 Creatinine 0.79 Estimat Glomerular Filtration 81 Rate Random Glucose 201 Calcium Level 9.0 Total Bilirubin 0.1 Aspartate Amino Transf 16 (AST/SGOT) Alanine Aminotransferase 29 (ALT/SGPT) Alkaline Phosphatase 214 C-Reactive Protein 7.20 Total Protein 8.0 Albumin 3.5 Lactic Acid Level 2.7 Urine Color YELLOW Urine Turbidity CLEAR Urine pH 6.5 Urine Specific [place] 1.016 Urine Protein 30 Urine Glucose (UA) 70 Urine Ketones TRACE Urine Occult Blood NEG Urine Nitrite NEG Urine Bilirubin NEG Urine Urobilinogen LESS THAN 2.0 Urine Leukocyte Esterase NEG Urine WBC LESS THAN 1 Urine Squamous Epithelial <1 Cells Urine Mucus FEW Microscopic Urinalysis Comment CULT NOT INDICATED Date/Time Procedure Status Source Growth 08/22/16 13:25 Aerobic Blood Culture Received Blood Peripheral Pending 08/22/16 13:25 Anaerobic Blood Culture Received Blood Peripheral Pending Result Diagram: 08/22/16 1230 08/22/16 1230 Imaging Last Impressions Head CT 08/22/16 1236 Signed Impressions: Service Date/Time: Monday, August 22, 2016 13:05 - CONCLUSION: Normal examination. Terrance Pagan MD Chest X-Ray 08/22/16 1236 Signed Impressions: Service Date/Time: Monday, August 22, 2016 12:42 - CONCLUSION: No acute disease. Terrance Pagan MD Temporal Bone CT 08/22/16 0000 Signed Impressions: Service Date/Time: Monday, August 22, 2016 13:05 - CONCLUSION: 1. Mucosal thickening right maxillary sinus. 2. Minimal bilateral mastoid air cell fluid suspected inferiorly. Terrance Pagan MD Assessment and Plan Assessment and Plan A/P - severe sepsis ( elevated WBC, tachycardia and elevated lactic acid) due to acute on chronic right maxillary sinusitis continue with IV antibiotics and pain control- will consult ENT. -asthma; neb treatment as needed. -hypokalemia; replaced. -DVT prophylaxis with lovenox Discussed Condition With ER physician and the patient. Problem Qualifiers (1) Sinusitis: Qualified Code: J01.00 - Subacute maxillary sinusitis El Whitley MD August 22, 2016 16:16
[2016-08-22] MEDS ORDERED: amLODIPine BESYLATE 5 MG TAB PO SCH (16:30)
[2016-08-22] MEDS ORDERED: PILL SPLITTER OTHER PRN (16:30)
[2016-08-22] MEDS: RESP: ALBUTEROL 2.5 MG/IPRATROPIUM 0.5 MG NEB (PRN) NEB ×2 (17:08→23:33)
[2016-08-22] MEDS: TOBRAMYCIN 0.3%/DEXAMETHASONE 0.1% OPHT SUSP 5 ML BTL SCH (18:00)
[2016-08-22 19:21] VITALS: BP 152/74
[2016-08-22] MEDS: MONTELUKAST SODIUM 10 MG TAB PO SCH (19:59)
[2016-08-22 20:00] VITALS: BP 172/82; PULSE 96; RESP 19; TEMP 96.6; O2SAT 96
[2016-08-22] MEDS: ACETAMINOPHEN/HYDROcodone 325 MG/5 MG TAB PO PRN (20:00)
[2016-08-22] MEDS ORDERED: NON-FORMULARY DRUG (Fluticasone-Salmeterol Inh (Advair Diskus Inh) 1 PUFF) INH SCH (21:00)
[2016-08-22] MEDS: HYDROmorphone HCL PF 1 MG/ML VIAL IV PUSH PRN (21:14)
[2016-08-22] MEDS: BUDESONIDE-FORMOTEROL 160/4.5 MCG INHALER INH SCH (23:41)
[2016-08-22] MEDS: CLINDAMYCIN INJ 600 MG in SODIUM CHLORIDE 0.9% INJ 100 ML IV SCH (23:42)
[2016-08-23] VITALS: BP 165/86; PULSE 89; RESP 21; TEMP 96.6; O2SAT 95
[2016-08-23] MEDS: ALPRAZolam 1 MG TAB PO PRN ×3 (03:02→20:21)
[2016-08-23] MEDS: ACETAMINOPHEN/HYDROcodone 325 MG/5 MG TAB PO PRN ×2 (03:07→07:25)
[2016-08-23] MEDS: HYDROmorphone HCL PF 1 MG/ML VIAL IV PUSH PRN ×5 (03:37→20:22)
[2016-08-23 04:00] VITALS: BP 166/83; PULSE 84; RESP 22; TEMP 96.1; O2SAT 95
[2016-08-23] MEDS: CLINDAMYCIN INJ 600 MG in SODIUM CHLORIDE 0.9% INJ 100 ML IV SCH ×3 (06:17→23:18)
[2016-08-23 08:00] VITALS: BP 150/100; PULSE 87; RESP 18; TEMP 97.4; O2SAT 97
[2016-08-23 08:02] LABS: AUTOMATED NEUTROPHIL # 6.9 TH/MM3 (1.8-7.7); BASOPHIL # 0.1 TH/MM3 (0-0.2); BASOPHIL % 1.2 % (0.0-2.0); EOSINOPHIL # 0.5 TH/MM3 (0-0.4); EOSINOPHIL % 4.4 % (0.0-4.0); HEMATOCRIT 37.1 % (35.0-46.0); HEMO FLAGS DIFF FINAL; LYMPH % 29.6 % (9.0-44.0); LYMPHOCYTE # 3.6 TH/MM3 (1.0-4.8); MEAN CELL VOLUME 79.6 FL (80.0-100.0); MEAN CORPUSCULAR HEMOGLOBIN 26.5 PG (27.0-34.0); MEAN CORPUSCULAR HGB CONC 33.3 % (32.0-36.0); MONO % 7.9 % (0.0-8.0); NEUT % 56.9 % (16.0-70.0); PLATELET COUNT 397 TH/MM3 (150-450); RED BLOOD COUNT 4.66 MIL/MM3 (4.00-5.30); WHITE BLOOD COUNT 12.2 TH/MM3 (4.0-11.0)
[2016-08-23] MEDS: ENOXAPARIN SODIUM 40 MG/0.4 ML SYRINGE SQ SCH (08:09)
[2016-08-23] MEDS: PANTOPRAZOLE SOD 40 MG DELAYED RELEASE TAB PO SCH (08:09)
[2016-08-23] MEDS: amLODIPine BESYLATE 5 MG TAB PO SCH (08:09)
[2016-08-23] MEDS: CETIRIZINE HCL 10 MG TAB PO SCH (08:09)
[2016-08-23] MEDS: BUDESONIDE-FORMOTEROL 160/4.5 MCG INHALER INH SCH ×2 (08:10→20:23)
[2016-08-23] MEDS: TOBRAMYCIN 0.3%/DEXAMETHASONE 0.1% OPHT SUSP 5 ML BTL SCH ×3 (08:11→18:41)
[2016-08-23 08:13] LABS: BICARBONATE 28.5 MEQ/L (21.0-32.0)
[2016-08-23] MEDS ORDERED: DEXAMETHASONE SOD PHOS 4 MG/ML VIAL IV ONE (09:00)
[2016-08-23] MEDS: DULoxetine HCl DR 60 MG CAP PO SCH (09:00)
[2016-08-23] MEDS ORDERED: LANSOPRAZOLE 40 MG PO SCH (09:00)
[2016-08-23] MEDS: guaiFENesin E.R. 600 MG TAB PO SCH ×2 (09:00→20:21)
--- NOTE | 2016-08-23 09:14 | MB ---
cc: BALTAZAR ADHIKARI M.D., MOHAMMADREZA MD DATE OF CONSULTATION: 08/23/2016 REASON FOR ENT CONSULTATION Sinusitis and headache. HISTORY OF PRESENT ILLNESS Jada Avila is a 41-year-old woman well-known to me for a history of sinus problems and also eustachian tube dysfunction and left ear chronic otitis. She presented to the emergency room at [facility] on the afternoon of August 22 complaining of over 24 hours of progressive headache, primarily involving the right side of her head and originating in the right side of her face. She had no fever. She had no rhinorrhea. States her left ear was also somewhat painful with slightly muffled hearing but no otorrhea. A CT scan was obtained which showed opacification of her right maxillary sinus. She has been then started on IV Rocephin and clindamycin. She notes some improvement in her headache today. She has had no intravenous steroid treatment. She is also receiving tobramycin and dexamethasone drops in her left ear. PAST MEDICAL HISTORY 1. Asthma. 2. Sinusitis. 3. Lupus. PAST SURGICAL HISTORY 1. Hysterectomy. 2. Sinus surgery. 3. Left tympanoplasty. ALLERGIES 1. ASPIRIN. 2. BENADRYL. 3. CONTRAST MEDIA. 4. FENTANYL. 5. IBUPROFEN. 6. PENICILLIN. 7. ASPIRIN. 8. SULFA. 9. REGLAN. 10.TRAMADOL. MEDICATIONS Medications prior to admission include Percocet for chronic neck and back pain. PHYSICAL EXAMINATION GENERAL: On examination she is alert and cooperative. VITAL SIGNS: Temperature 98.2, pulse 100, respirations 20, blood pressure 137/72. HEAD: Normocephalic and atraumatic. ORAL CAVITY: Teeth in good condition. No drainage in the oropharynx. NECK: No tenderness. No nodes or masses. EARS: Patent and dry. PE tubes in place. No otorrhea. NASAL ENDOSCOPY: The left side is clear. There is evidence of surgical changes involving the left ethmoid sinuses. On the right there are surgical changes present but purulent drainage coming from the anterior ethmoids. This appears very thick and inspissated. No gross drainage present. ASSESSMENT Acute on chronic sinusitis. PLAN I concur with the IV antibiotic treatment. Will add Mucinex 1200 mg twice a day and frequent saline irrigation. She requested pain medicine. I will give her instead Decadron 6 mg IV. Will follow with her. Anticipate rapid improvement in the next 24 hours. MD PIO Corona/ANNE MARIE /8:50 AM /9:02 AM
[2016-08-23] MEDS ORDERED: PNEUMOCOCCAL POLYVALENT INJ 25 MCG/0.5 ML SYR IM ONE (10:00)
--- NOTE | 2016-08-23 10:47 | HHI.PR ---
Subjective Remarks in no acute distress. still with some headache although looks more comfortable today. no fever. d/w the RN. Objective Vitals Vital Signs Date Time Temp Pulse Resp B/P Pulse Ox O2 Delivery O2 Flow Rate FiO2 08/23/16 08:00 97.4 87 18 150/100 97 08/23/16 04:00 96.1 84 22 166/83 95 08/23/16 00:00 96.6 89 21 165/86 95 08/22/16 20:00 96.6 96 19 172/82 96 08/22/16 19:21 98 16 152/74 98 08/22/16 15:36 100 34 137/77 08/22/16 12:44 98 Room Air 08/22/16 12:03 98.2 122 24 208/106 98 Room Air I/O 08/22/16 08/22/16 08/22/16 08/23/16 08/23/16 08/23/16 07:00 15:00 23:00 07:00 15:00 23:00 Intake Total 720 ml 1148 ml Balance 720 ml 1148 ml Intake Oral 720 ml 480 ml IV Total 668 ml # Voids 2 1 Result Diagram: 08/23/16 0732 08/23/16 0732 Imaging Last Impressions Head CT 08/22/16 1236 Signed Impressions: Service Date/Time: Monday, August 22, 2016 13:05 - CONCLUSION: Normal examination. Terrance Pagan MD Chest X-Ray 08/22/16 1236 Signed Impressions: Service Date/Time: Monday, August 22, 2016 12:42 - CONCLUSION: No acute disease. Terrance Pagan MD Temporal Bone CT 08/22/16 0000 Signed Impressions: Service Date/Time: Monday, August 22, 2016 13:05 - CONCLUSION: 1. Mucosal thickening right maxillary sinus. 2. Minimal bilateral mastoid air cell fluid suspected inferiorly. Terrance Pagan MD Objective Remarks GENERAL: This is a well-nourished, well-developed patient, in no apparent distress. CARDIOVASCULAR: Regular rate and regular rhythm without murmurs, gallops, or rubs. RESPIRATORY: Clear to auscultation. Breath sounds equal bilaterally. No wheezes , rales, or rhonchi. GASTROINTESTINAL: Abdomen soft, non-tender, nondistended. Normal, active bowel sounds MUSCULOSKELETAL: Extremities without clubbing, cyanosis, or edema. NEURO: Alert & Oriented x4 to person, place, time, situation. Moves all ext x4 Procedures none Medications and IVs Current Medications Morphine Sulfate (Morphine Inj) 4 mg ONCE ONCE IV PUSH Last administered on 12:46; Start 08/22/16 at 12:45; Stop 08/22/16 at 12:46; Status DC Ondansetron HCl 4 mg 4 mg ONCE ONCE IV PUSH Last administered on 08/22/16 12: 46; Start 08/22/16 at 12:45; Stop 08/22/16 at 12:46; Status DC Sodium Chloride (NS 1000 ml Inj) 1,000 ml @ 125 mls/hr Q8H IV Last administered on 08/22/16 23:42; Start 08/22/16 at 12:45 Morphine Sulfate 4 mg 4 mg ONCE ONCE IV PUSH Last administered on 08/22/16 15 :45; Start 08/22/16 at 15:45; Stop 08/22/16 at 15:46; Status DC Ceftriaxone Sodium 1000 mg/ Sodium Chloride 100 ml @ 200 mls/hr ONCE ONCE IV Last administered on 08/22/16 15:45; Start 08/22/16 at 15:45; Stop 08/22/16 at 16:14; Status DC Clindamycin Phosphate/Sodium Chloride (Cleocin Inj/NS Inj) 104 ml @ 208 mls/hr ONCE ONCE IV Last administered on 08/22/16 15:45; Start 08/22/16 at 15:45; Stop 08/22/16 at 16:14; Status DC Potassium Chloride 40 meq 40 meq ONCE ONCE PO Last administered on 08/22/16 15:52; Start 08/22/16 at 16:00; Stop 08/22/16 at 16:01; Status DC Ceftriaxone Sodium 1000 mg/ Sodium Chloride 100 ml @ 200 mls/hr Q24H IV ; Start 08/23/16 at 16:00 Clindamycin Phosphate/Sodium Chloride (Cleocin Inj/NS Inj) 104 ml @ 208 mls/hr Q8H IV Last administered on 08/23/16 06:17; Start 08/22/16 at 23:00 Acetaminophen (Tylenol) 650 mg Q4H PRN PO FEVER/PAIN 1-3; Start 08/22/16 at 16: 15 Acetaminophen/ Hydrocodone Bitart ([place] 5-325 Mg) 1 tab Q4H PRN PO PAIN 4-7; Start 08/22/16 at 16:15 Acetaminophen/ Hydrocodone Bitart ([place] 5-325 Mg) 2 tab Q4H PRN PO PAIN 8-10 Last administered on 08/23/16 07:25; Start 08/22/16 at 16:15 Hydromorphone HCl 0.5 mg 0.5 mg Q4H PRN IV PUSH BREAKTHROUGH PAIN Last administered on 08/23/16 08:09; Start 08/22/16 at 16:15 Sodium Chloride (NS 1000 ml Inj) 1,000 ml @ 100 mls/hr Q10H ONCE IV Last administered on 08/22/16 16:15; Start 08/22/16 at 16:15; Stop 08/23/16 at 02:14 ; Status DC Ondansetron HCl (Zofran Inj) 4 mg Q8HR PRN IV PUSH NAUSEA; Start 08/22/16 at 16 :15 Albuterol/ Ipratropium (Duoneb Neb) 1 ampule Q6HR NEB PRN NEB SHORTNESS OF BREATH Last administered on 08/22/16 23:33; Start 08/22/16 at 16:30 Alprazolam (Xanax) 1 mg Q6H PRN PO ANXIETY Last administered on 08/23/16 03:02 ; Start 08/22/16 at 16:30 Amlodipine Besylate (Norvasc) 2.5 mg DAILY PO ; Start 08/22/16 at 16:30; Status Cancel Cetirizine HCl (ZyrTEC) 10 mg DAILY PO Last administered on 08/23/16 08:09; Start 08/23/16 at 09:00 Duloxetine HCl (Cymbalta Dr) 120 mg DAILY PO ; Start 08/23/16 at 09:00 Montelukast Sodium (Singulair) 10 mg HS PO Last administered on 08/22/16 19:59 ; Start 08/22/16 at 21:00 Non-Formulary Medication 1 puff BID INH ; Start 08/22/16 at 21:00; Status UNV Non-Formulary Medication 40 mg DAILY PO ; Start 08/23/16 at 09:00; Status UNV Pantoprazole Sodium (Protonix) 40 mg DAILY PO Last administered on 08/23/16 08 :09; Start 08/23/16 at 09:00 Amlodipine Besylate (Norvasc) 2.5 mg DAILY PO Last administered on 08/23/16 08 :09; Start 08/23/16 at 09:00 Enoxaparin Sodium (Lovenox Inj) 40 mg Q24H SQ Last administered on 08/23/16 08 :09; Start 08/23/16 at 09:00 Miscellaneous (Pill Splitter) 1 ea UNSCH PRN OTHER SEE LABEL COMMENTS; Start at 16:30 Budesonide/ Formoterol Fumarate (Symbicort 160-4.5 Inh) 2 puff BID INH Last administered on 08/23/16 08:10; Start 08/22/16 at 21:00 Tobramycin/ Dexamethasone (Tobradex Opth Susp) 4 drop TID .XX Last administered on 08/23/16 08:11; Start 08/22/16 at 18:00 Pneumococcal Polyvalent Vaccine (Pneumovax-23 Inj) 25 mcg ONCE ONCE IM ; Start 08/23/16 at 10:00; Stop 08/23/16 at 10:01; Status DC Guaifenesin (Mucinex Er) 1,200 mg BID PO ; Start 08/23/16 at 09:00 Dexamethasone Sodium Phosphate (Decadron Inj) 6 mg NOW ONCE IV ; Start at 09:00; Stop 08/23/16 at 09:01; Status DC A/P Assessment and Plan - severe sepsis ( elevated WBC, tachycardia and elevated lactic acid) due to acute on chronic right maxillary sinusitis continue with IV antibiotics and pain control- follow the cultures. ENT consult appreciated. -asthma; neb treatment as needed. -hypokalemia; replaced. -DVT prophylaxis with El Martinez MD August 23, 2016 10:47
[2016-08-23] MEDS ORDERED: oxyCODONE/ACETAMINOPHEN 7.5 MG/325 MG TAB PO PRN (11:00)
[2016-08-23] MEDS: oxyCODONE/ACETAMINOPHEN 7.5 MG/325 MG TAB PO PRN ×3 (11:30→23:20)
[2016-08-23 12:00] VITALS: BP 172/96; PULSE 87; RESP 19; TEMP 96.2; O2SAT 93
[2016-08-23] MEDS: DOCUSATE SODIUM 100 MG CAP PO PRN (12:14)
[2016-08-23] MEDS: SODIUM CHLOR 0.9% 1000 ML INJ 1,000 ML IV SCH ×3 (15:38→20:45)
[2016-08-23 16:00] VITALS: BP 144/98; PULSE 88; RESP 16; TEMP 97; O2SAT 94
[2016-08-23] MEDS: cefTRIAXone INJ 1,000 MG in SODIUM CHLORIDE 0.9% INJ 100 ML IV SCH (16:34)
[2016-08-23] MEDS: MONTELUKAST SODIUM 10 MG TAB PO SCH (20:21)
[2016-08-23 20:30] VITALS: BP 170/84; PULSE 104; RESP 20; TEMP 96.2; O2SAT 93
[2016-08-24] VITALS: BP 155/78; PULSE 97; RESP 20; TEMP 96.9; O2SAT 94
[2016-08-24] MEDS: HYDROmorphone HCL PF 1 MG/ML VIAL IV PUSH PRN ×6 (00:17→23:11)
[2016-08-24] MEDS: DOCUSATE SODIUM 100 MG CAP PO PRN ×2 (00:23→14:13)
[2016-08-24] MEDS: SODIUM CHLOR 0.9% 1000 ML INJ 1,000 ML IV SCH (04:45)
[2016-08-24 05:00] VITALS: BP 148/78; PULSE 81; RESP 18; TEMP 97; O2SAT 93
[2016-08-24] MEDS: CLINDAMYCIN INJ 600 MG in SODIUM CHLORIDE 0.9% INJ 100 ML IV SCH ×3 (06:22→23:15)
[2016-08-24] MEDS: oxyCODONE/ACETAMINOPHEN 7.5 MG/325 MG TAB PO PRN ×5 (06:28→22:15)
[2016-08-24] MEDS: PANTOPRAZOLE SOD 40 MG DELAYED RELEASE TAB PO SCH (07:33)
[2016-08-24] MEDS: DULoxetine HCl DR 60 MG CAP PO SCH (07:33)
[2016-08-24] MEDS: guaiFENesin E.R. 600 MG TAB PO SCH ×2 (07:33→20:50)
[2016-08-24] MEDS: amLODIPine BESYLATE 5 MG TAB PO SCH (07:33)
[2016-08-24] MEDS: CETIRIZINE HCL 10 MG TAB PO SCH (07:33)
[2016-08-24] MEDS: ENOXAPARIN SODIUM 40 MG/0.4 ML SYRINGE SQ SCH (07:34)
[2016-08-24] MEDS: TOBRAMYCIN 0.3%/DEXAMETHASONE 0.1% OPHT SUSP 5 ML BTL SCH ×3 (07:37→17:58)
[2016-08-24] MEDS: BUDESONIDE-FORMOTEROL 160/4.5 MCG INHALER INH SCH ×2 (07:37→20:51)
[2016-08-24 08:00] VITALS: BP 150/85; PULSE 91; RESP 16; TEMP 96.5; O2SAT 95
--- NOTE | 2016-08-24 10:00 | HHI.PR ---
Subjective Remarks headache is better. no fever. no other complaints. d/w the RN and no acute issues over night. Objective Vitals Vital Signs Date Time Temp Pulse Resp B/P Pulse Ox O2 Delivery O2 Flow Rate FiO2 08/24/16 08:00 96.5 91 16 150/85 95 08/24/16 05:00 97.0 81 18 148/78 93 08/24/16 00:47 18 08/24/16 00:20 18 08/24/16 00:00 96.9 97 20 155/78 94 08/23/16 23:05 18 08/23/16 20:30 96.2 104 20 170/84 93 08/23/16 16:00 97.0 88 16 144/98 94 08/23/16 12:00 96.2 87 19 172/96 93 I/O 08/23/16 08/23/16 08/23/16 08/24/16 08/24/16 08/24/16 07:00 15:00 23:00 07:00 15:00 23:00 Intake Total 1148 ml 600 ml 480 ml 1164 ml Balance 1148 ml 600 ml 480 ml 1164 ml Intake Oral 480 ml 600 ml 480 ml 240 ml IV Total 668 ml 924 ml # Voids 1 3 2 1 # Bowel Movements 0 Result Diagram: 08/23/16 0732 08/23/16 0732 Imaging Last Impressions Head CT 08/22/16 1236 Signed Impressions: Service Date/Time: Monday, August 22, 2016 13:05 - CONCLUSION: Normal examination. Terrance Pagan MD Chest X-Ray 08/22/16 1236 Signed Impressions: Service Date/Time: Monday, August 22, 2016 12:42 - CONCLUSION: No acute disease. Terrance Pagan MD Temporal Bone CT 08/22/16 0000 Signed Impressions: Service Date/Time: Monday, August 22, 2016 13:05 - CONCLUSION: 1. Mucosal thickening right maxillary sinus. 2. Minimal bilateral mastoid air cell fluid suspected inferiorly. Terrance Pagan MD Objective Remarks GENERAL: This is a well-nourished, well-developed patient, in no apparent distress. CARDIOVASCULAR: Regular rate and regular rhythm without murmurs, gallops, or rubs. RESPIRATORY: Clear to auscultation. Breath sounds equal bilaterally. No wheezes , rales, or rhonchi. GASTROINTESTINAL: Abdomen soft, non-tender, nondistended. Normal, active bowel sounds MUSCULOSKELETAL: Extremities without clubbing, cyanosis, or edema. NEURO: Alert & Oriented x4 to person, place, time, situation. Moves all ext x4 Procedures none Medications and IVs Current Medications Morphine Sulfate (Morphine Inj) 4 mg ONCE ONCE IV PUSH Last administered on 12:46; Start 08/22/16 at 12:45; Stop 08/22/16 at 12:46; Status DC Ondansetron HCl 4 mg 4 mg ONCE ONCE IV PUSH Last administered on 08/22/16 12: 46; Start 08/22/16 at 12:45; Stop 08/22/16 at 12:46; Status DC Sodium Chloride (NS 1000 ml Inj) 1,000 ml @ 125 mls/hr Q8H IV Last administered on 08/24/16 04:45; Start 08/22/16 at 12:45 Morphine Sulfate 4 mg 4 mg ONCE ONCE IV PUSH Last administered on 08/22/16 15 :45; Start 08/22/16 at 15:45; Stop 08/22/16 at 15:46; Status DC Ceftriaxone Sodium 1000 mg/ Sodium Chloride 100 ml @ 200 mls/hr ONCE ONCE IV Last administered on 08/22/16 15:45; Start 08/22/16 at 15:45; Stop 08/22/16 at 16:14; Status DC Clindamycin Phosphate/Sodium Chloride (Cleocin Inj/NS Inj) 104 ml @ 208 mls/hr ONCE ONCE IV Last administered on 08/22/16 15:45; Start 08/22/16 at 15:45; Stop 08/22/16 at 16:14; Status DC Potassium Chloride 40 meq 40 meq ONCE ONCE PO Last administered on 08/22/16 15:52; Start 08/22/16 at 16:00; Stop 08/22/16 at 16:01; Status DC Ceftriaxone Sodium 1000 mg/ Sodium Chloride 100 ml @ 200 mls/hr Q24H IV Last administered on 08/23/16 16:34; Start 08/23/16 at 16:00 Clindamycin Phosphate/Sodium Chloride (Cleocin Inj/NS Inj) 104 ml @ 208 mls/hr Q8H IV Last administered on 08/24/16 06:22; Start 08/22/16 at 23:00 Acetaminophen (Tylenol) 650 mg Q4H PRN PO FEVER/PAIN 1-3 Last administered on 22:05; Start 08/22/16 at 16:15 Acetaminophen/ Hydrocodone Bitart ([place] 5-325 Mg) 1 tab Q4H PRN PO PAIN 4-7; Start 08/22/16 at 16:15; Stop 08/23/16 at 10:50; Status DC Acetaminophen/ Hydrocodone Bitart ([place] 5-325 Mg) 2 tab Q4H PRN PO PAIN 8-10 Last administered on 08/23/16 07:25; Start 08/22/16 at 16:15; Stop 08/23/16 at 10:50; Status DC Hydromorphone HCl 0.5 mg 0.5 mg Q4H PRN IV PUSH BREAKTHROUGH PAIN Last administered on 08/24/16 07:32; Start 08/22/16 at 16:15 Sodium Chloride (NS 1000 ml Inj) 1,000 ml @ 100 mls/hr Q10H ONCE IV Last administered on 08/22/16 16:15; Start 08/22/16 at 16:15; Stop 08/23/16 at 02:14 ; Status DC Ondansetron HCl (Zofran Inj) 4 mg Q8HR PRN IV PUSH NAUSEA; Start 08/22/16 at 16 :15 Albuterol/ Ipratropium (Duoneb Neb) 1 ampule Q6HR NEB PRN NEB SHORTNESS OF BREATH Last administered on 08/22/16 23:33; Start 08/22/16 at 16:30 Alprazolam (Xanax) 1 mg Q6H PRN PO ANXIETY Last administered on 08/23/16 20:21 ; Start 08/22/16 at 16:30 Amlodipine Besylate (Norvasc) 2.5 mg DAILY PO ; Start 08/22/16 at 16:30; Status Cancel Cetirizine HCl (ZyrTEC) 10 mg DAILY PO Last administered on 08/24/16 07:33; Start 08/23/16 at 09:00 Duloxetine HCl (Cymbalta Dr) 120 mg DAILY PO Last administered on 08/24/16 07: 33; Start 08/23/16 at 09:00 Montelukast Sodium (Singulair) 10 mg HS PO Last administered on 08/23/16 20:21 ; Start 08/22/16 at 21:00 Non-Formulary Medication 1 puff BID INH ; Start 08/22/16 at 21:00; Status UNV Non-Formulary Medication 40 mg DAILY PO ; Start 08/23/16 at 09:00; Status UNV Pantoprazole Sodium (Protonix) 40 mg DAILY PO Last administered on 08/24/16 07 :33; Start 08/23/16 at 09:00 Amlodipine Besylate (Norvasc) 2.5 mg DAILY PO Last administered on 08/24/16 07 :33; Start 08/23/16 at 09:00 Enoxaparin Sodium (Lovenox Inj) 40 mg Q24H SQ Last administered on 08/24/16 07 :34; Start 08/23/16 at 09:00 Miscellaneous (Pill Splitter) 1 ea UNSCH PRN OTHER SEE LABEL COMMENTS; Start at 16:30 Budesonide/ Formoterol Fumarate (Symbicort 160-4.5 Inh) 2 puff BID INH Last administered on 08/24/16 07:37; Start 08/22/16 at 21:00 Tobramycin/ Dexamethasone (Tobradex Opth Susp) 4 drop TID .XX Last administered on 08/24/16 07:37; Start 08/22/16 at 18:00 Pneumococcal Polyvalent Vaccine (Pneumovax-23 Inj) 25 mcg ONCE ONCE IM ; Start 08/23/16 at 10:00; Stop 08/23/16 at 10:01; Status DC Guaifenesin (Mucinex Er) 1,200 mg BID PO Last administered on 08/24/16 07:33; Start 08/23/16 at 09:00 Dexamethasone Sodium Phosphate (Decadron Inj) 6 mg NOW ONCE IV Last administered on 08/23/16 09:00; Start 08/23/16 at 09:00; Stop 08/23/16 at 09:01 ; Status DC Oxycodone/ Acetaminophen (Percocet 7.5-325 Mg) 1 tab Q4H PRN PO PAIN 4-7 Last administered on 08/23/16 15:38; Start 08/23/16 at 11:00 Oxycodone/ Acetaminophen (Percocet 7.5-325 Mg) 2 tab Q4H PRN PO PAIN 8-10 Last administered on 08/24/16 06:28; Start 08/23/16 at 11:00 Docusate Sodium (Colace) 100 mg BID PRN PO CONSTIPATION Last administered on 00:23; Start 08/23/16 at 11:00 A/P Assessment and Plan - severe sepsis ( elevated WBC, tachycardia and elevated lactic acid) due to acute on chronic right maxillary sinusitis- improving. continue with IV antibiotics and pain control- blood cultures negative so far. ENT consult appreciated. -asthma; neb treatment as needed. -hypokalemia; replaced. -DVT prophylaxis with lovenox Discharge Planning dc home - hopefully soon- when cleared by ENT. see med list. f/u with pcp and ENT upon discharge. d/w the patient and RN. El Whitley MD August 24, 2016 10:00
[2016-08-24] MEDS ORDERED: CLIN1CAP6 PO (10:02)
[2016-08-24] MEDS ORDERED: CEFI5CAP PO (10:02)
--- NOTE | 2016-08-24 10:03 | HHI.DCPOC ---
Discharge Care Plan Diagnosis: (1) Sinusitis Additional Problems headache. Goals to Promote Your Health * To prevent worsening of your condition and complications * To maintain your health at the optimal level Directions to Meet Your Goals Take your medications as prescribed Follow your dietary instruction Follow activity as directed Keep your appointments as scheduled Take your immunizations and boosters as scheduled If your symptoms worsen call your PCP, if no PCP go to Urgent Care Center or Emergency Room Smoking is Dangerous to Your Health. Avoid second hand smoke Call the 24-hour hour crisis hotline for domestic abuse at El Whitley MD August 24, 2016 10:03
--- NOTE | 2016-08-24 10:03 | HHI.DS ---
Discharge Summary Admission Date August 22, 2016 at 17:07 Discharge Date: August 24, 2016 Admitting Diagnosis mastoiditis. Sinusitis. Cephalgia. (1) Sinusitis ICD Code: J32.9 Diagnosis: Principal (2) Severe sepsis ICD Code: A41.9 Diagnosis: Principal Procedures none Brief History - From Admission patient is a 41 y/o female with history of sinusitis who presented to ER with headache. she says that headache started few days ago. headache is more or less on the left side with some radiation to the right face. headache is a dull- aching type although she says that it was throbbing yesterday. headache was associated with nausea but with no emesis, vision changes or neck stiffness. she didn't have any fever. she doesn't report any nasal or post-nasal discharge. CBC/BMP: 08/23/16 0732 08/23/16 0732 Significant Findings Laboratory Tests Test 08/22/16 08/22/16 08/22/16 08/23/16 12:30 13:20 15:25 07:32 White Blood Count 18.7 TH/MM3 12.2 TH/MM3 (4.0-11.0) (4.0-11.0) Mean Corpuscular Volume 78.7 FL 79.6 FL (80.0-100.0) (80.0-100.0) Mean Corpuscular Hemoglobin 26.5 PG 26.5 PG (27.0-34.0) (27.0-34.0) Neutrophils (%) (Auto) 70.8 % (16.0-70.0) Neutrophils # (Auto) 13.2 TH/MM3 (1.8-7.7) Monocytes # (Auto) 1.0 TH/MM3 1.0 TH/MM3 (0-0.9) (0-0.9) Eosinophils # (Auto) 0.6 TH/MM3 0.5 TH/MM3 (0-0.4) (0-0.4) Erythrocyte Sedimentation Rate 58 mm/hr (0-20) Activated Partial 41.3 SEC Thromboplast Time (24.3-30.1) Potassium Level 3.2 MEQ/L (3.5-5.1) Blood Urea Nitrogen 4 MG/DL (7-18) 4 MG/DL (7-18) Estimat Glomerular Filtration 81 ML/MIN (>89) Rate Random Glucose 201 MG/DL 127 MG/DL (74-106) (74-106) Total Bilirubin 0.1 MG/DL (0.2-1.0) Alkaline Phosphatase 214 U/L (45-117) C-Reactive Protein 7.20 MG/DL (0.00-0.30) Lactic Acid Level 2.7 mmol/L (0.4-2.0) Urine Protein 30 mg/dL (NEG-TRACE) Urine Glucose (UA) 70 mg/dL (NEG) Urine Ketones TRACE mg/dL (NEG) Urine Mucus FEW /lpf (OCC) Eosinophils (%) (Auto) 4.4 % (0.0-4.0) Calcium Level 8.4 MG/DL (8.5-10.1) Imaging Last Impressions Head CT 08/22/16 1236 Signed Impressions: Service Date/Time: Monday, August 22, 2016 13:05 - CONCLUSION: Normal examination. Terrance Pagan MD Chest X-Ray 08/22/16 1236 Signed Impressions: Service Date/Time: Monday, August 22, 2016 12:42 - CONCLUSION: No acute disease. Terrance Pagan MD Temporal Bone CT 08/22/16 0000 Signed Impressions: Service Date/Time: Monday, August 22, 2016 13:05 - CONCLUSION: 1. Mucosal thickening right maxillary sinus. 2. Minimal bilateral mastoid air cell fluid suspected inferiorly. Terrance Pagan MD PE at Discharge GENERAL: This is a well-nourished, well-developed patient, in no apparent distress. CARDIOVASCULAR: Regular rate and regular rhythm without murmurs, gallops, or rubs. RESPIRATORY: Clear to auscultation. Breath sounds equal bilaterally. No wheezes , rales, or rhonchi. GASTROINTESTINAL: Abdomen soft, non-tender, nondistended. Normal, active bowel sounds MUSCULOSKELETAL: Extremities without clubbing, cyanosis, or edema. NEURO: Alert & Oriented x4 to person, place, time, situation. Moves all ext x4 Hospital Course - severe sepsis ( elevated WBC, tachycardia and elevated lactic acid) due to acute on chronic right maxillary sinusitis- improving. continue with IV antibiotics and pain control- blood cultures negative so far. ENT consult appreciated. -asthma; neb treatment as needed. -hypokalemia; replaced. -DVT prophylaxis with lovenox Pt Condition on Discharge: Fair Discharge Disposition: Discharge Home Discharge Time: <= 30 minutes Discharge Instructions DIET: Follow Instructions for: Heart Healthy Diet Activities you can perform: Regular-No Restrictions Follow up Referrals: Ear Nose Throat PCP Follow-up New Medications: Cefixime (Suprax) 400 Mg Cap 400 MG PO DAILY Infection Days 7 Ref 0 CAP Clindamycin (Clindamycin) 300 Mg Cap 300 MG PO Q6H Infection Days 7 Ref 0 CAP Continued Medications: Albuterol 18 GM Inh (Ventolin Hfa 18 GM Inh) 90 Mcg/Act Aer 2 PUFF INH Q4-6H PRN SHORTNESS OF BREATH #1 Ref 0 INHALER Alprazolam (Xanax) 1 Mg Tab 1 MG PO Q6H PRN ANXIETY Ref 0 TAB Amlodipine (Norvasc) 10 Mg Tab 2.5 MG PO DAILY Blood Pressure Management #30 Ref 0 TAB Cetirizine (Zyrtec Allergy) 10 Mg Cap 10 MG PO DAILY Allergies Ref [address] (Cymbalta DR) 60 Mg Capdr 120 MG PO DAILY #30 Ref 0 CAP Fluticasone-Salmeterol Inh (Advair Diskus Inh) 500-50 Mcg/Blist Aer 1 PUFF INH BID Rinse mouth after use. #1 Ref 0 INHALER Lansoprazole (Prevacid) 30 Mg Capdr 40 MG PO DAILY Ref 0 CAP Montelukast (Singulair) 10 Mg Tab 10 MG PO HS #30 Ref 0 TAB Multi-Vit/Iron-B Comp-Vit C (Integra) 62.5-62.5-40-3 mg Cap Ondansetron Odt (Zofran Odt) 4 Mg Tab 4 MG SL Q6HR PRN Nausea/Vomiting #30 Ref 0 TAB Oxycodone-Acetaminophen (Percocet) 7.5-325 mg Tab 1 TAB PO Q4H PRN PAIN Ref 0 TAB El Whitley MD August 24, 2016 10:03
[2016-08-24 12:00] VITALS: BP 146/85; PULSE 93; RESP 16; TEMP 96.9; O2SAT 95
[2016-08-24] MEDS: cefTRIAXone INJ 1,000 MG in SODIUM CHLORIDE 0.9% INJ 100 ML IV SCH (15:29)
[2016-08-24] MEDS: ALPRAZolam 1 MG TAB PO PRN (15:31)
--- NOTE | 2016-08-24 15:49 | RADRPT ---
EXAM DATE/TIME: 08/24/2016 14:49 [place] COMPARISON: CT SINUSES W/O CONTRAST, October 05, 2015, 10:07. INDICATIONS : Chronic headaches. RADIATION DOSE: 18.20 CTDIvol (mGy) MEDICAL HISTORY : Cardiovascular disease. Hypertension. SURGICAL HISTORY : Hysterectomy. cirrhosis ENCOUNTER: Initial ACUITY: 1 day PAIN SCORE: 0/10 LOCATION: TECHNIQUE: Volumetric scanning of the paranasal sinuses was performed. Using automated exposure control and adj ustment of the mA and/or kV according to patient size, radiation dose was kept as low as reasonably a chievable to obtain optimal diagnostic quality images. FINDINGS: MAXILLARY SINUSES: There is benign-appearing mucosal disease in the right maxillary sinus.. Infundibula are patent. No anomalous inferior orbital ethmoid (Alison) air cells. ETHMOID SINUSES: Normal. No significant mucosal thickening or fluid. Fovea ethmoidal and lamina papyracea are symmet zeina and intact. SPHENOID SINUSES: Normal. No significant mucosal thickening or fluid. Sphenoethmoidal recesses are patent. No bony d ehiscence. FRONTAL SINUSES: Normal. No significant mucosal thickening or fluid. Frontal recesses are patent. No anomalous fron jose luis air cells. NASAL FOSSA: Normal. No septal perforation or deviation. No hipolito bullosa or paradoxical turbinates are identifie d. OTHER: Normal. Limited views of the skull base and orbits are unremarkable. CONCLUSION: 1. Minimal mucosal disease right maxillary sinus otherwise unremarkable. Bandar Dominguez MD on August 24, 2016 at 15:23 Board Certified Radiologist. This report was verified electronically.
[2016-08-24 16:00] VITALS: BP 167/95; PULSE 93; RESP 16; TEMP 97; O2SAT 99
[2016-08-24] MEDS: MONTELUKAST SODIUM 10 MG TAB PO SCH (20:50)
[2016-08-24 21:15] VITALS: BP 163/92; PULSE 88; RESP 18; TEMP 97.8; O2SAT 94
[2016-08-24] MEDS ORDERED: MAGNESIUM HYDROXIDE SUSP 30 ML CUP PO ONE (22:00)
[2016-08-25 01:00] VITALS: BP 170/86; PULSE 84; RESP 20; TEMP 96.6; O2SAT 95
[2016-08-25] MEDS: ALPRAZolam 1 MG TAB PO PRN ×2 (01:56→08:15)
[2016-08-25 04:55] VITALS: BP 192/84; PULSE 85; RESP 18; TEMP 96.2; O2SAT 95
[2016-08-25 05:05] VITALS: BP 158/85
[2016-08-25 06:39] LABS: INTERNATIONAL NORMALIZED RATIO 0.9 RATIO; PROTHROMBIN TIME - PATIENT 10.1 SEC (9.8-11.6)
[2016-08-25] MEDS: CLINDAMYCIN INJ 600 MG in SODIUM CHLORIDE 0.9% INJ 100 ML IV SCH (07:34)
[2016-08-25] MEDS: oxyCODONE/ACETAMINOPHEN 7.5 MG/325 MG TAB PO PRN (07:40)
[2016-08-25 07:50] VITALS: BP 174/94; PULSE 82; RESP 20; TEMP 97.2; O2SAT 95
[2016-08-25] MEDS: CETIRIZINE HCL 10 MG TAB PO SCH (08:06)
[2016-08-25] MEDS: DULoxetine HCl DR 60 MG CAP PO SCH (08:06)
[2016-08-25] MEDS: PANTOPRAZOLE SOD 40 MG DELAYED RELEASE TAB PO SCH (08:06)
[2016-08-25] MEDS: amLODIPine BESYLATE 5 MG TAB PO SCH (08:06)
[2016-08-25] MEDS: BUDESONIDE-FORMOTEROL 160/4.5 MCG INHALER INH SCH (08:16)
[2016-08-25] MEDS: TOBRAMYCIN 0.3%/DEXAMETHASONE 0.1% OPHT SUSP 5 ML BTL SCH (08:19)
[2016-08-25] MEDS ORDERED: LEVA500T PO (09:15)
--- NOTE | 2016-08-25 09:15 | HHI.PR ---
Subjective Remarks in no acute distress. no fever. headache is better. wants to go home. d/w and RN. Objective Vitals Vital Signs Date Time Temp Pulse Resp B/P Pulse Ox O2 Delivery O2 Flow Rate FiO2 08/25/16 07:50 97.2 82 20 174/94 95 Automatic Cuff 08/25/16 05:05 158/85 08/25/16 04:55 96.2 85 18 192/84 95 08/25/16 01:00 96.6 84 20 170/86 95 08/24/16 21:15 97.8 88 18 163/92 94 08/24/16 16:00 97.0 93 16 167/95 99 08/24/16 12:00 96.9 93 16 146/85 95 I/O 08/24/16 08/24/16 08/24/16 08/25/16 08/25/16 08/25/16 07:00 15:00 23:00 07:00 15:00 23:00 Intake Total 1164 ml 920 ml 590 ml Balance 1164 ml 920 ml 590 ml Intake Oral 240 ml 920 ml 480 ml IV Total 924 ml 110 ml # Voids 1 3 1 Result Diagram: 08/23/16 0732 08/23/16 0732 Imaging Last Impressions Sinuses CT 08/24/16 0000 Signed Impressions: Service Date/Time: Wednesday, August 24, 2016 14:49 - CONCLUSION: 1. Minimal mucosal disease right maxillary sinus otherwise unremarkable. Bandar Dominguez MD Head CT 08/22/16 1236 Signed Impressions: Service Date/Time: Monday, August 22, 2016 13:05 - CONCLUSION: Normal examination. Terrance Pagan MD Chest X-Ray 08/22/16 1236 Signed Impressions: Service Date/Time: Monday, August 22, 2016 12:42 - CONCLUSION: No acute disease. Terrance Pagan MD Temporal Bone CT 08/22/16 0000 Signed Impressions: Service Date/Time: Monday, August 22, 2016 13:05 - CONCLUSION: 1. Mucosal thickening right maxillary sinus. 2. Minimal bilateral mastoid air cell fluid suspected inferiorly. Terrance Pagan MD Objective Remarks GENERAL: This is a well-nourished, well-developed patient, in no apparent distress. CARDIOVASCULAR: Regular rate and regular rhythm without murmurs, gallops, or rubs. RESPIRATORY: Clear to auscultation. Breath sounds equal bilaterally. No wheezes , rales, or rhonchi. GASTROINTESTINAL: Abdomen soft, non-tender, nondistended. Normal, active bowel sounds MUSCULOSKELETAL: Extremities without clubbing, cyanosis, or edema. NEURO: Alert & Oriented x4 to person, place, time, situation. Moves all ext x4 Procedures none Medications and IVs Current Medications Morphine Sulfate (Morphine Inj) 4 mg ONCE ONCE IV PUSH Last administered on 12:46; Start 08/22/16 at 12:45; Stop 08/22/16 at 12:46; Status DC Ondansetron HCl 4 mg 4 mg ONCE ONCE IV PUSH Last administered on 08/22/16 12: 46; Start 08/22/16 at 12:45; Stop 08/22/16 at 12:46; Status DC Sodium Chloride (NS 1000 ml Inj) 1,000 ml @ 125 mls/hr Q8H IV Last administered on 08/24/16 04:45; Start 08/22/16 at 12:45; Stop 08/24/16 at 11:48 ; Status DC Morphine Sulfate 4 mg 4 mg ONCE ONCE IV PUSH Last administered on 08/22/16 15 :45; Start 08/22/16 at 15:45; Stop 08/22/16 at 15:46; Status DC Ceftriaxone Sodium 1000 mg/ Sodium Chloride 100 ml @ 200 mls/hr ONCE ONCE IV Last administered on 08/22/16 15:45; Start 08/22/16 at 15:45; Stop 08/22/16 at 16:14; Status DC Clindamycin Phosphate/Sodium Chloride (Cleocin Inj/NS Inj) 104 ml @ 208 mls/hr ONCE ONCE IV Last administered on 08/22/16 15:45; Start 08/22/16 at 15:45; Stop 08/22/16 at 16:14; Status DC Potassium Chloride 40 meq 40 meq ONCE ONCE PO Last administered on 08/22/16 15:52; Start 08/22/16 at 16:00; Stop 08/22/16 at 16:01; Status DC Ceftriaxone Sodium 1000 mg/ Sodium Chloride 100 ml @ 200 mls/hr Q24H IV Last administered on 08/24/16 15:29; Start 08/23/16 at 16:00 Clindamycin Phosphate/Sodium Chloride (Cleocin Inj/NS Inj) 104 ml @ 208 mls/hr Q8H IV Last administered on 08/25/16 07:34; Start 08/22/16 at 23:00 Acetaminophen (Tylenol) 650 mg Q4H PRN PO FEVER/PAIN 1-3 Last administered on 22:05; Start 08/22/16 at 16:15 Acetaminophen/ Hydrocodone Bitart ([place] 5-325 Mg) 1 tab Q4H PRN PO PAIN 4-7; Start 08/22/16 at 16:15; Stop 08/23/16 at 10:50; Status DC Acetaminophen/ Hydrocodone Bitart ([place] 5-325 Mg) 2 tab Q4H PRN PO PAIN 8-10 Last administered on 08/23/16 07:25; Start 08/22/16 at 16:15; Stop 08/23/16 at 10:50; Status DC Hydromorphone HCl 0.5 mg 0.5 mg Q4H PRN IV PUSH BREAKTHROUGH PAIN Last administered on 08/24/16 23:11; Start 08/22/16 at 16:15 Sodium Chloride (NS 1000 ml Inj) 1,000 ml @ 100 mls/hr Q10H ONCE IV Last administered on 08/22/16 16:15; Start 08/22/16 at 16:15; Stop 08/23/16 at 02:14 ; Status DC Ondansetron HCl (Zofran Inj) 4 mg Q8HR PRN IV PUSH NAUSEA; Start 08/22/16 at 16 :15 Albuterol/ Ipratropium (Duoneb Neb) 1 ampule Q6HR NEB PRN NEB SHORTNESS OF BREATH Last administered on 08/22/16 23:33; Start 08/22/16 at 16:30 Alprazolam (Xanax) 1 mg Q6H PRN PO ANXIETY Last administered on 08/25/16 08:15 ; Start 08/22/16 at 16:30 Amlodipine Besylate (Norvasc) 2.5 mg DAILY PO ; Start 08/22/16 at 16:30; Status Cancel Cetirizine HCl (ZyrTEC) 10 mg DAILY PO Last administered on 08/25/16 08:06; Start 08/23/16 at 09:00 Duloxetine HCl (Cymbalta Dr) 120 mg DAILY PO Last administered on 08/25/16 08: 06; Start 08/23/16 at 09:00 Montelukast Sodium (Singulair) 10 mg HS PO Last administered on 08/24/16 20:50 ; Start 08/22/16 at 21:00 Non-Formulary Medication 1 puff BID INH ; Start 08/22/16 at 21:00; Status UNV Non-Formulary Medication 40 mg DAILY PO ; Start 08/23/16 at 09:00; Status UNV Pantoprazole Sodium (Protonix) 40 mg DAILY PO Last administered on 08/25/16 08 :06; Start 08/23/16 at 09:00 Amlodipine Besylate (Norvasc) 2.5 mg DAILY PO Last administered on 08/25/16 08 :06; Start 08/23/16 at 09:00 Enoxaparin Sodium (Lovenox Inj) 40 mg Q24H SQ Last administered on 08/24/16 07 :34; Start 08/23/16 at 09:00 Miscellaneous (Pill Splitter) 1 ea UNSCH PRN OTHER SEE LABEL COMMENTS; Start at 16:30 Budesonide/ Formoterol Fumarate (Symbicort 160-4.5 Inh) 2 puff BID INH Last administered on 08/25/16 08:16; Start 08/22/16 at 21:00 Tobramycin/ Dexamethasone (Tobradex Opth Susp) 4 drop TID .XX Last administered on 08/25/16 08:19; Start 08/22/16 at 18:00 Pneumococcal Polyvalent Vaccine (Pneumovax-23 Inj) 25 mcg ONCE ONCE IM ; Start 08/23/16 at 10:00; Stop 08/23/16 at 10:01; Status DC Guaifenesin (Mucinex Er) 1,200 mg BID PO Last administered on 08/24/16 20:50; Start 08/23/16 at 09:00 Dexamethasone Sodium Phosphate (Decadron Inj) 6 mg NOW ONCE IV Last administered on 08/23/16 09:00; Start 08/23/16 at 09:00; Stop 08/23/16 at 09:01 ; Status DC Oxycodone/ Acetaminophen (Percocet 7.5-325 Mg) 1 tab Q4H PRN PO PAIN 4-7 Last administered on 08/23/16 15:38; Start 08/23/16 at 11:00 Oxycodone/ Acetaminophen (Percocet 7.5-325 Mg) 2 tab Q4H PRN PO PAIN 8-10 Last administered on 08/25/16 07:40; Start 08/23/16 at 11:00 Docusate Sodium (Colace) 100 mg BID PRN PO CONSTIPATION Last administered on 14:13; Start 08/23/16 at 11:00 Magnesium Hydroxide (Milk Of Magnesia Liq) 30 ml ONCE ONCE PO Last administered on 08/24/16 22:15; Start 08/24/16 at 22:00; Stop 08/24/16 at 22:01 ; Status DC A/P Assessment and Plan A/P - severe sepsis ( elevated WBC, tachycardia and elevated lactic acid) due to acute on chronic right maxillary sinusitis- improving. will switch to po antibiotic- blood cultures negative so far. ENT consult appreciated; d/w today; patient was cleared for discharge with outpatient follow-up. -asthma; neb treatment as needed. -hypertension; will increase amlodipine- f/u as outpatient. -hypokalemia; replaced. -DVT prophylaxis with lovenox Discharge Planning dc home today. see med list. f/u with pcp and ENT upon discharge. d/w the patient and RN. d/w . El Whitley MD August 25, 2016 09:15
[2016-08-25] MEDS ORDERED: AMLO5TAB2 PO (09:20)
[2016-08-25] MEDS: ENOXAPARIN SODIUM 40 MG/0.4 ML SYRINGE SQ SCH (09:40)
[2016-08-25] MEDS: HYDROmorphone HCL PF 1 MG/ML VIAL IV PUSH PRN (09:40)
[2016-08-25] MEDS: guaiFENesin E.R. 600 MG TAB PO SCH (09:40)
--- NOTE | 2016-08-25 19:34 | EKG ---
Date Performed: 08/24/2016 Time Performed: 22:38:45 PTAGE: 41 years EKG: Sinus rhythm WITH MARKED SINUS ARRHYTHMIA INCOMPLETE RIGHT BUNDLE BRANCH BLOCK BORDERLINE ECG PREVIOUS TRACING : 07/16/2015 15.55 Compared to prior tracing no significant change DOCTOR: Ronnie Goodwin Interpretating Date/Time 08/25/2016 19:34:08
--- NOTE | 2016-08-26 11:53 | PQ ---
Physician Query Response Document PATIENT: ASH DELUCA : 1975 ADMIT DATE: 08/22/2016 5:07 PM DISCH DATE: 08/25/2016 12:13 PM RESPONDING PROVIDER #: [email or web address] QUERY TEXT: Clarification of Clinical Diagnostic Findings Please clarify documentation or clinical relevance for the clinical / diagnostic findings : ELEVATED LACTIC ACID 1) ACIDOSIS 2) NO ACIDOSIS 3) OTHER, PLEASE EXPLAIN CALL [facility] @ [phone] FOR ASSISTANCE The patient's Clinical Indicators include: PER PROGRESS NOTE: Assessment and Plan - severe sepsis ( elevated WBC, tachycardia and elevated lactic acid) 08/22/16 LACTIC ACID = 2.7 08/22/16 LACTIC ACID = 1.6 Query created by: Landy Simpson on 08/24/2016 2:06 PM RESPONSE TEXT: No acidosis. Electronically signed by: El Whitley MD 08/26/2016 11:49 AM
== END 2016-08-25 12:13 | disposition home or self-care (01) | DRG 872 ==
LOC: NEPE 13:21 → NEDA 15:49 → OBSVTOIN 17:07 → HOCB 19:29
PROVIDERS: ADMIT Internal Medicine; ATTEND Internal Medicine
DX: A41.9 Sepsis, unspecified organism (principal); R65.20 Severe sepsis without septic shock; M32.9 Systemic lupus erythematosus, unspecified; E87.6 Hypokalemia; J01.00 Acute maxillary sinusitis, unspecified; J32.0 Chronic maxillary sinusitis; J45.909 Unspecified asthma, uncomplicated; R00.0 Tachycardia, unspecified; I10 Essential (primary) hypertension
CPT/HCPCS: 70450; 70480; 70486; 71010; 80048; 80053; 81001; 83605; 85025; 85610; 85652; 85730; 86140; 87040; 93005; 94640; 94664; 96361; 96374; 96375; 96376; J0696; J1100; J1170; J1650; J2270; J2405; J7030

== ENCOUNTER 2016-10-17 15:39 | Emergency (ER) | payer OTHER ==
[~2016-10-17] VITALS: Ht 162.6 cm; Wt 121.8 kg
[~2016-10-17 15:39] MED LIST changes: -AMLO10 PO; +AMLO5TAB2 PO; +LEVA500T PO
[2016-10-17 15:47] VITALS: BP 156/103; PULSE 110; RESP 20; TEMP 98.3; O2SAT 97
[2016-10-17 17:18] LABS: BLOOD, URINE NEG (NEG); GLUCOSE,URINE NEG (NEG); KETONE, URINE NEG (NEG); NITRITE,URINE NEG (NEG); PH, URINE 6.5 (5.0-8.5)
[2016-10-17] MEDS ORDERED: SODIUM CHLOR 0.9% 1000 ML INJ 1,000 ML IV SCH (17:28)
[2016-10-17] MEDS ORDERED: HYDROmorphone HCL PF 1 MG/ML VIAL IVS ONE (17:30)
[2016-10-17] MEDS ORDERED: ONDANSETRON HCL 4 MG/2 ML VIAL IVP ONE (17:30)
[2016-10-17] MEDS ORDERED: SODIUM CHLORIDE 0.9% FLUSH 10 ML FLUSH IV FLUSH PRN (17:30)
[2016-10-17 17:33] LABS: COMMENT (UR) CULT NOT INDICATED; CULTURE IF INDICATED CULT NOT INDICATED; METHOD OF COLLECTION CLEAN CATCH
--- NOTE | 2016-10-17 17:34 | PD ---
HPI Chief Complaint: Abdominal Pain Time Seen by Provider: 17:28 Travel History International Travel<30 days: No Contact w/Intl Traveler<30days: No Traveled to known affect area: No History of Present Illness HPI 41-year-old female with history of kidney stones, lupus, presents to the ER today for sudden onset of right lower quadrant abdominal pain and nausea starting this afternoon. She states the pain is currently a 9 out of 10. She denies any diarrhea, fevers, or any other symptoms. Modifying Factors: None Associated Signs & Symptoms: Right lower quadrant abdominal pain Risk Factors: None PFSH Past Medical History Hx Anticoagulant Therapy: No Anemia: Yes Arthritis: Yes Asthma: Yes Anxiety: Yes Depression: Yes Heart Rhythm Problems: No Cancer: No Cardiovascular Problems: Yes (HTN ,) High Cholesterol: No Chest Pain: No Congestive Heart Failure: No COPD: No Cerebrovascular Accident: No Diabetes: No Diminished Hearing: No Endocrine: No Gastrointestinal Disorders: Yes (REFLUX) GERD: Yes Genitourinary: Yes Headaches: Yes Hepatitis: No Hiatal Hernia: No Herniated Disk: Yes Hypertension: Yes Immune Disorder: No Implanted Vascular Access Dvce: No Kidney Stones: Yes Medical other: Yes (LUPUS LIKE CON'D ("BLOOD WON'T CLOT"), ANEMIA) Musculoskeletal: Yes Neurologic: Yes Psychiatric: Yes Reproductive: No Respiratory: Yes Immunizations Current: Yes Migraines: Yes Seizures: No Sleep Apnea: Yes (BIPAP) Thyroid Disease: No Tetanus Vaccination: > 5 Years Influenza Vaccination: No ?: Not Menopausal: Yes : 0 Para: 0 Ovarian Cysts: Yes Dilation and Curettage (D&C): Yes Past Surgical History Abdominal Surgery: No AICD: No Cardiac Surgery: Yes (ABLASION HYSTERECTOMY) Ear Surgery: Yes (LEFT EAR SURGERY) Endocrine Surgery: No Eye Surgery: No Genitourinary Surgery: Yes (KIDNEY STONES) Gynecologic Surgery: Yes (UTERINE ABLASION) Hysterectomy: Yes Joint Replacement: No Neurologic Surgery: No Pacemaker: No Thoracic Surgery: No Tympanostomy Tube: Yes (LEFT EAR surgery August 2013) Other Surgery: Yes (KIDNEY STONE, CARPEL DEMETRIO, SINUS) Social History Alcohol Use: No Tobacco Use: No Substance Use: No Allergies-Medications (Allergen,Severity, Reaction): Coded Allergies: Aspirin (Verified Allergy, Severe, WHEEZES, 10/17/16) Benadryl (Verified Allergy, Severe, Respiratory Failure, 10/17/16) Contrast Media (Verified Allergy, Severe, Anaphylaxis, 10/17/16) Fentanyl (Verified Allergy, Severe, itching, 10/17/16) Ibuprofen (Verified Allergy, Severe, Respiratory Failure, 10/17/16) Peanut (Verified Allergy, Severe, THROAT CLOSES, 10/17/16) Penicillin (Verified Allergy, Severe, THROAT CLOSES, 10/17/16) Salicylates (Verified Allergy, Severe, 10/17/16) cannot breath Sulfa (Verified Allergy, Severe, Wheezing, 10/17/16) Reglan (Verified Allergy, Unknown, 10/17/16) PT STATMENT, "I JUST HAD A BAD REACTION TO IT" Tramadol (Verified Adverse Reaction, Unknown, UNKNOWN , 10/17/16) Reported Meds & Prescriptions Reported Meds & Active Scripts Active Amlodipine (Amlodipine Besylate) 5 Mg Tab 5 Mg PO DAILY Zofran Odt (Ondansetron Odt) 4 Mg Tab 4 Mg SL Q6HR PRN Reported Percocet (Oxycodone-Acetaminophen) 7.5-325 mg Tab 1 Tab PO Q4H PRN Advair Diskus Inh (Fluticasone-Salmeterol Inh) 500-50 Mcg/Blist Aer 1 Puff INH BID Rinse mouth after use. Xanax (Alprazolam) 1 Mg Tab 1 Mg PO Q6H PRN Zyrtec Allergy (Cetirizine HCl) 10 Mg Cap 10 Mg PO DAILY Singulair (Montelukast Sodium) 10 Mg Tab 10 Mg PO HS Ventolin Hfa 18 GM Inh (Albuterol Sulfate) 90 Mcg/Act Aer 2 Puff INH Q4-6H PRN Prevacid (Lansoprazole) 30 Mg Capdr 40 Mg PO DAILY Cymbalta DR (Duloxetine HCl) 60 Mg Capdr 120 Mg PO DAILY Review of Systems Except as stated in HPI: all other systems reviewed are Neg Physical Exam Narrative GENERAL: Well-developed obese middle age white female patient currently in mild distress. Awake and oriented 3. SKIN: Focused skin assessment warm/dry. HEAD: Atraumatic. Normocephalic. EYES: Pupils equal and round. No scleral icterus. No injection or drainage. ENT: No nasal bleeding or discharge. Mucous membranes pink and moist. NECK: Trachea midline. No JVD. CARDIOVASCULAR: Regular rate and rhythm. No murmur appreciated. RESPIRATORY: No accessory muscle use. Clear to auscultation. Breath sounds equal bilaterally. GASTROINTESTINAL: Abdomen soft, obese, right lower quadrant tenderness without guarding or rebound, nondistended. Hepatic and splenic margins not palpable. MUSCULOSKELETAL: No obvious deformities. No clubbing. No cyanosis. No edema. NEUROLOGICAL: Awake and alert. No obvious cranial nerve deficits. Motor grossly within normal limits. Normal speech. PSYCHIATRIC: Appropriate mood and affect; insight and judgment normal. Data Data Last Documented VS Vital Signs Date Time Temp Pulse Resp B/P Pulse Ox O2 Delivery O2 Flow Rate FiO2 10/17/16 19:06 98.2 92 20 138/83 10/17/16 18:25 95 Room Air Orders Urinalysis - C+S If Indicated (10/17/16 16:38) Complete Blood Count With Diff (10/17/16 17:28) Comprehensive Metabolic Panel (10/17/16 17:28) Iv Access Insert/Monitor (10/17/16 17:28) Ecg Monitoring (10/17/16 17:28) Oximetry (10/17/16 17:28) Ondansetron Inj (Zofran Inj) (10/17/16 17:30) Sodium Chlor 0.9% 1000 Ml Inj (Ns 1000 M (10/17/16 17:28) Sodium Chloride 0.9% Flush (Ns Flush) (10/17/16 17:30) Hydromorphone Pf Inj (Dilaudid Pf Inj) (10/17/16 17:30) Ed Urine Pregnancytest Poc (10/17/16 17:28) Ct Abd/Pel W/O Iv Contrast (10/17/16 18:07) Labs Laboratory Tests Test 10/17/16 10/17/16 16:30 17:55 Urine Collection Type CLEAN CATCH Urine Color NONE Urine Turbidity CLEAR Urine pH 6.5 Urine Specific [place] 1.003 Urine Protein NEG mg/dL Urine Glucose (UA) NEG mg/dL Urine Ketones NEG mg/dL Urine Occult Blood NEG Urine Nitrite NEG Urine Bilirubin NEG Urine Leukocyte Esterase NEG Microscopic Urinalysis Comment CULT NOT INDICATED White Blood Count 14.5 TH/MM3 Red Blood Count 5.23 MIL/MM3 Hemoglobin 13.5 GM/DL Hematocrit 41.1 % Mean Corpuscular Volume 78.5 FL Mean Corpuscular Hemoglobin 25.8 PG Mean Corpuscular Hemoglobin 32.9 % Concent Red Cell Distribution Width 14.4 % Platelet Count 514 TH/MM3 Mean Platelet Volume 7.7 FL Neutrophils (%) (Auto) 55.1 % Lymphocytes (%) (Auto) 31.3 % Monocytes (%) (Auto) 6.2 % Eosinophils (%) (Auto) 5.6 % Basophils (%) (Auto) 1.8 % Neutrophils # (Auto) 8.0 TH/MM3 Lymphocytes # (Auto) 4.5 TH/MM3 Monocytes # (Auto) 0.9 TH/MM3 Eosinophils # (Auto) 0.8 TH/MM3 Basophils # (Auto) 0.3 TH/MM3 CBC Comment DIFF FINAL Differential Comment Sodium Level 136 MEQ/L Potassium Level 3.4 MEQ/L Chloride Level 101 MEQ/L Carbon Dioxide Level 25.7 MEQ/L Anion Gap 9 MEQ/L Blood Urea Nitrogen 6 MG/DL Creatinine 0.66 MG/DL Estimat Glomerular Filtration 100 ML/MIN Rate Random Glucose 100 MG/DL Calcium Level 9.1 MG/DL Total Bilirubin 0.2 MG/DL Aspartate Amino Transf 30 U/L (AST/SGOT) Alanine Aminotransferase 31 U/L (ALT/SGPT) Alkaline Phosphatase 188 U/L Total Protein 7.7 GM/DL Albumin 3.5 GM/DL MDM Medical Decision Making Medical Screen Exam Complete: Yes Emergency Medical Condition: Yes Medical Record Reviewed: Yes Interpretation(s) Laboratory Tests Test 10/17/16 17:55 White Blood Count 14.5 TH/MM3 (4.0-11.0) Mean Corpuscular Volume 78.5 FL (80.0-100.0) Mean Corpuscular Hemoglobin 25.8 PG (27.0-34.0) Platelet Count 514 TH/MM3 (150-450) Eosinophils (%) (Auto) 5.6 % (0.0-4.0) Neutrophils # (Auto) 8.0 TH/MM3 (1.8-7.7) Eosinophils # (Auto) 0.8 TH/MM3 (0-0.4) Basophils # (Auto) 0.3 TH/MM3 (0-0.2) Potassium Level 3.4 MEQ/L (3.5-5.1) Blood Urea Nitrogen 6 MG/DL (7-18) Alkaline Phosphatase 188 U/L (45-117) Differential Diagnosis Right lower quadrant abdominal painsrenal colic versus gastroenteritis versus appendicitis Narrative Course Lab work, IV fluids, pain medications and nausea medication was given in the ER. CAT scan ordered for further evaluation. Physician Communication Physician Communication Case is signed out to Dr. Crooks at 7 PM awaiting CAT scan. Diagnosis Primary Impression: Abdominal pain Condition: Stable Alf Murcia MD Oct 17, 2016 17:34
[2016-10-17 18:10] LABS: BASOPHIL # 0.3 TH/MM3 (0-0.2); BASOPHIL % 1.8 % (0.0-2.0); EOSINOPHIL # 0.8 TH/MM3 (0-0.4); EOSINOPHIL % 5.6 % (0.0-4.0); HEMATOCRIT 41.1 % (35.0-46.0); LYMPH % 31.3 % (9.0-44.0); LYMPHOCYTE # 4.5 TH/MM3 (1.0-4.8); MEAN CELL VOLUME 78.5 FL (80.0-100.0); MEAN CORPUSCULAR HEMOGLOBIN 25.8 PG (27.0-34.0); MEAN CORPUSCULAR HGB CONC 32.9 % (32.0-36.0); MONO % 6.2 % (0.0-8.0); NEUT % 55.1 % (16.0-70.0); PLATELET COUNT 514 TH/MM3 (150-450); RED BLOOD COUNT 5.23 MIL/MM3 (4.00-5.30); RED CELL DISTRIBUTION WIDTH 14.4 % (11.6-17.2); WHITE BLOOD COUNT 14.5 TH/MM3 (4.0-11.0)
[2016-10-17 18:16] LABS: CHLORIDE 101 MEQ/L (98-107); POTASSIUM 3.4 MEQ/L (3.5-5.1); SODIUM (NA) 136 MEQ/L (136-145)
[2016-10-17 18:21] LABS: ANION GAP 9 MEQ/L (5-15); BICARBONATE 25.7 MEQ/L (21.0-32.0); BLOOD UREA NITROGEN 6 MG/DL (7-18)
[2016-10-17 18:23] LABS: HEMO FLAGS DIFF FINAL
[2016-10-17 18:24] LABS: ALT (GPT) 31 U/L (10-53); AST (GOT) 30 U/L (15-37); GLOMERULAR FILTRATION RATE 100 ML/MIN (>89)
[2016-10-17 18:25] VITALS: O2SAT 95
[2016-10-17 18:25] LABS: TOTAL BILIRUBIN ADULT 0.2 MG/DL (0.2-1.0)
[2016-10-17 18:26] LABS: ALKALINE PHOSPHATASE 188 U/L (45-117)
[2016-10-17 19:06] VITALS: BP 138/83; PULSE 92; RESP 20; TEMP 98.2
[2016-10-17] MEDS ORDERED: oxyCODONE/ACETAMINOPHEN 5 MG/325 MG TAB PO ONE (20:15)
[2016-10-17 20:18] VITALS: BP 146/73; PULSE 102; RESP 20; O2SAT 93
--- NOTE | 2016-10-17 20:18 | RADRPT ---
EXAM DATE/TIME: 10/17/2016 19:20 [facility] COMPARISON: CT ABDOMEN & PELVIS W/O CONTRAST, June 13, 2016, 18:11. INDICATIONS : Right lower quadrant pain. ORAL CONTRAST: No oral contrast ingested. RADIATION DOSE: 22.28 CTDIvol (mGy) MEDICAL HISTORY : Hypertension. Gastroesophageal reflux disease. SURGICAL HISTORY : Hysterectomy. ENCOUNTER: Initial ACUITY: 1 day PAIN SCALE: 8/10 LOCATION: Right lower quadrant TECHNIQUE: Volumetric scanning of the abdomen and pelvis was performed. Using automated exposure control and ad justment of the mA and/or kV according to patient size, radiation dose was kept as low as reasonably achievable to obtain optimal diagnostic quality images. DICOM format image data is available electro nically for review and comparison. FINDINGS: CT Abdomen: The spleen, pancreas, kidneys, adrenals are unremarkable. There is no evidence for any ap preciable pathological adenopathy, free fluid, or bowel obstruction. The liver is fatty without foca l lesions or technique. There is no evidence for any stones in the kidneys or the course of the urete rs on either side. There is no hydronephrosis. CT pelvis: There is no evidence for mass, abscess formation, or any significant adenopathy within the pelvis. CONCLUSION: Fatty liver. Cisco Leary MD on October 17, 2016 at 20:14 Board Certified Radiologist. This report was verified electronically.
--- NOTE | 2016-10-17 20:39 | PD ---
Data Data Last Documented VS Vital Signs Date Time Temp Pulse Resp B/P Pulse Ox O2 Delivery O2 Flow Rate FiO2 10/17/16 20:18 102 20 146/73 93 Room Air 10/17/16 19:06 98.2 Orders Urinalysis - C+S If Indicated (10/17/16 16:38) Complete Blood Count With Diff (10/17/16 17:28) Comprehensive Metabolic Panel (10/17/16 17:28) Iv Access Insert/Monitor (10/17/16 17:28) Ecg Monitoring (10/17/16 17:28) Oximetry (10/17/16 17:28) Ondansetron Inj (Zofran Inj) (10/17/16 17:30) Sodium Chlor 0.9% 1000 Ml Inj (Ns 1000 M (10/17/16 17:28) Sodium Chloride 0.9% Flush (Ns Flush) (10/17/16 17:30) Hydromorphone Pf Inj (Dilaudid Pf Inj) (10/17/16 17:30) Ed Urine Pregnancytest Poc (10/17/16 17:28) Ct Abd/Pel W/O Iv Contrast (10/17/16 18:07) Oxycodone-Acetamin 5-325 Mg (Percocet (10/17/16 20:15) Labs Laboratory Tests Test 10/17/16 10/17/16 16:30 17:55 Urine Collection Type CLEAN CATCH Urine Color NONE Urine Turbidity CLEAR Urine pH 6.5 Urine Specific [place] 1.003 Urine Protein NEG mg/dL Urine Glucose (UA) NEG mg/dL Urine Ketones NEG mg/dL Urine Occult Blood NEG Urine Nitrite NEG Urine Bilirubin NEG Urine Leukocyte Esterase NEG Microscopic Urinalysis Comment CULT NOT INDICATED White Blood Count 14.5 TH/MM3 Red Blood Count 5.23 MIL/MM3 Hemoglobin 13.5 GM/DL Hematocrit 41.1 % Mean Corpuscular Volume 78.5 FL Mean Corpuscular Hemoglobin 25.8 PG Mean Corpuscular Hemoglobin 32.9 % Concent Red Cell Distribution Width 14.4 % Platelet Count 514 TH/MM3 Mean Platelet Volume 7.7 FL Neutrophils (%) (Auto) 55.1 % Lymphocytes (%) (Auto) 31.3 % Monocytes (%) (Auto) 6.2 % Eosinophils (%) (Auto) 5.6 % Basophils (%) (Auto) 1.8 % Neutrophils # (Auto) 8.0 TH/MM3 Lymphocytes # (Auto) 4.5 TH/MM3 Monocytes # (Auto) 0.9 TH/MM3 Eosinophils # (Auto) 0.8 TH/MM3 Basophils # (Auto) 0.3 TH/MM3 CBC Comment DIFF FINAL Differential Comment Sodium Level 136 MEQ/L Potassium Level 3.4 MEQ/L Chloride Level 101 MEQ/L Carbon Dioxide Level 25.7 MEQ/L Anion Gap 9 MEQ/L Blood Urea Nitrogen 6 MG/DL Creatinine 0.66 MG/DL Estimat Glomerular Filtration 100 ML/MIN Rate Random Glucose 100 MG/DL Calcium Level 9.1 MG/DL Total Bilirubin 0.2 MG/DL Aspartate Amino Transf 30 U/L (AST/SGOT) Alanine Aminotransferase 31 U/L (ALT/SGPT) Alkaline Phosphatase 188 U/L Total Protein 7.7 GM/DL Albumin 3.5 GM/DL MDM Supervised Visit with TULIO: Yes Narrative Course 41 year-old woman of multiple medical problems presents to the emergency department with right lower quadrant abdominal pain. She reports past medical history of arthritis, kidney stones, some kind of bleeding problem associated with lupus, and depression. Studies show: CBC 14.5 thousand CMP is unremarkable UA is unremarkable CT abdomen and pelvis: Negative. FINAL: Right lower quadrant abdominal pain associated with some nausea. CT is unremarkable, labs unremarkable mild leukocytosis. This is her third CT scan this year for flank pain that is negative where and she was receiving IV Dilaudid for pain. Recommend outpatient follow-up. Diagnosis Primary Impression: Abdominal pain Additional Instruction: Continue current medications. Follow-up with your primary doctor in the next 2-4 days. Return to the emergency department for any new or worsening symptoms. Med/Other Pt SpecificInfo: No Change to Meds Disposition: 01 DISCHARGE HOME Condition: Stable Adan Crooks MD Oct 17, 2016 20:39
[2016-10-17] MEDS ORDERED: ZOFR4TAB3 SL (20:53)
[2016-10-17 20:59] VITALS: BP 146/73
== END 2016-10-17 21:03 | disposition home or self-care (01) ==
LOC: PHED 15:39
DX: R10.31 Right lower quadrant pain (principal); R11.0 Nausea; D72.829 Elevated white blood cell count, unspecified; I10 Essential (primary) hypertension; G47.30 Sleep apnea, unspecified; Z86.2 Personal history of diseases of the blood and blood-forming organs and certain disorders involving the immune mechanism; Z87.39 Personal history of other diseases of the musculoskeletal system and connective tissue; Z87.09 Personal history of other diseases of the respiratory system; Z86.59 Personal history of other mental and behavioral disorders; Z86.79 Personal history of other diseases of the circulatory system; Z87.19 Personal history of other diseases of the digestive system; Z87.448 Personal history of other diseases of urinary system; Z86.69 Personal history of other diseases of the nervous system and sense organs
CPT/HCPCS: 74176; 80053; 81001; 84703; 85025; 96361; 96374; 96375; 99285; J1170; J2405; J7030

== ENCOUNTER 2016-11-22 10:28 | Emergency (ER) | payer OTHER ==
[~2016-11-22] VITALS: Ht 162.6 cm; Wt 122.0 kg
[~2016-11-22 10:28] MED LIST changes: -FE FCAP; -LEVA500T PO
[2016-11-22 10:30] VITALS: BP 172/94; PULSE 113; RESP 20; TEMP 98.8; O2SAT 96
[2016-11-22] MEDS ORDERED: AMLO2.5T PO (12:05)
[2016-11-22] MEDS ORDERED: SPIRCAP INH (12:05)
[2016-11-22] MEDS ORDERED: CIPR500T2 PO (12:05)
[2016-11-22] MEDS ORDERED: GENT0.1C TOPICAL (12:05)
[2016-11-22] MEDS ORDERED: CETI10CH CHEW (12:05)
[2016-11-22] MEDS ORDERED: IPRASOL INH (12:05)
--- NOTE | 2016-11-22 12:05 | PD ---
HPI Chief Complaint: Skin Problem Time Seen by Provider: 11:52 Travel History International Travel<30 days: No Contact w/Intl Traveler<30days: No Traveled to known affect area: No History of Present Illness HPI The patient was seen and examined in the presence of the nurse. This patient complains of pain in her mid right lower leg. She has a chronic ulceration there which is been going on for 5 weeks. It started as a shaving injury and then enlarged from that point. She takes antibiotics for it. She follows with wound care twice weekly. She has chronic pain and follows with pain management. She came today because she's been having more pain around the wound than usual. There is no active drainage. No fever. Severity is moderate. No alleviating factors. PFSH Past Medical History Hx Anticoagulant Therapy: No Anemia: Yes Arthritis: Yes Asthma: Yes Anxiety: Yes Depression: Yes Heart Rhythm Problems: No Cancer: No Cardiovascular Problems: Yes (HTN ,) High Cholesterol: No Chest Pain: No Congestive Heart Failure: No COPD: No Cerebrovascular Accident: No Diabetes: No Diminished Hearing: No Endocrine: No Gastrointestinal Disorders: Yes (Fatty liver) GERD: Yes Genitourinary: Yes Headaches: Yes Hepatitis: No Hiatal Hernia: No Herniated Disk: Yes Hypertension: Yes Immune Disorder: No Implanted Vascular Access Dvce: No Kidney Stones: Yes Medical other: Yes ("Lupus-like condition, blood won't clot" ) Musculoskeletal: Yes Neurologic: Yes Psychiatric: Yes Reproductive: No Respiratory: Yes Immunizations Current: Yes Migraines: Yes Seizures: No Sleep Apnea: Yes (BiPAP) Thyroid Disease: No Tetanus Vaccination: > 5 Years Influenza Vaccination: Yes ?: Not Menopausal: Yes : 0 Para: 0 Ovarian Cysts: Yes Dilation and Curettage (D&C): Yes Past Surgical History Abdominal Surgery: No AICD: No Cardiac Surgery: Yes (ABLASION HYSTERECTOMY) Ear Surgery: Yes (Left) Endocrine Surgery: No Eye Surgery: No Genitourinary Surgery: Yes (Kidney stones ) Gynecologic Surgery: Yes (Ablation ) Hysterectomy: Yes Joint Replacement: No Neurologic Surgery: No Pacemaker: No Thoracic Surgery: No Tympanostomy Tube: Yes (LEFT EAR surgery August 2013) Other Surgery: Yes (Sinus, carpal tunnel ) Social History Alcohol Use: No Tobacco Use: Yes (Occ.) Substance Use: No Allergies-Medications (Allergen,Severity, Reaction): Coded Allergies: Sulfa (Sulfonamide Antibiotics) (Unverified Allergy, Severe, Wheezing, ) aspirin (Unverified Allergy, Severe, WHEEZES, 11/22/16) bismuth subsalicylate (Unverified Allergy, Severe, 11/22/16) cannot breath diatrizoate meglumine (Unverified Allergy, Severe, Anaphylaxis, 11/22/16) diphenhydramine (Unverified Allergy, Severe, Respiratory Failure, 11/22/16) fentanyl (Unverified Allergy, Severe, itching, 11/22/16) gadobenic acid (Unverified Allergy, Severe, Anaphylaxis, 11/22/16) gadodiamide (Unverified Allergy, Severe, Anaphylaxis, 11/22/16) gadoteridol (Unverified Allergy, Severe, Anaphylaxis, 11/22/16) ibuprofen (Unverified Allergy, Severe, Respiratory Failure, 11/22/16) iodixanol (Unverified Allergy, Severe, Anaphylaxis, 11/22/16) iohexol (Unverified Allergy, Severe, Anaphylaxis, 11/22/16) ipratropium (Unverified Allergy, Severe, THROAT CLOSES, 11/22/16) mesalamine (Unverified Allergy, Severe, 11/22/16) cannot breath penicillin G (Unverified Allergy, Severe, THROAT CLOSES, 11/22/16) metoclopramide (Unverified Allergy, Unknown, 11/22/16) PT STATMENT, "I JUST HAD A BAD REACTION TO IT" tramadol (Unverified Adverse Reaction, Unknown, UNKNOWN , 11/22/16) Reported Meds & Prescriptions Reported Meds & Active Scripts Active Reported Spiriva Handihaler (Tiotropium Inh) 18 Mcg Cap 18 Mcg INH BID 1 capsule = 18 mcg Cetirizine (Cetirizine HCl) 10 Mg Chew 10 Mg CHEW DAILY Duoneb (Ipratropium-Albuterol Neb) 0.5-2.5 Mg/3 Ml Neb 1 Nebule INH DIRECTED Amlodipine (Amlodipine Besylate) 2.5 Mg Tab 2.5 Mg PO DAILY Ciprofloxacin (Ciprofloxacin HCl) 500 Mg Tab 500 Mg PO BID Gentamicin Topical 0.1% Cream 1 Applic TOPICAL BID Apply to affected area(s) Percocet (Oxycodone-Acetaminophen) 7.5-325 mg Tab 1 Tab PO Q6HR PRN Advair Diskus Inh (Fluticasone-Salmeterol Inh) 500-50 Mcg/Blist Aer 1 Puff INH BID Rinse mouth after use. Xanax (Alprazolam) 1 Mg Tab 1 Mg PO Q6H PRN Singulair (Montelukast Sodium) 10 Mg Tab 10 Mg PO HS Prevacid (Lansoprazole) 30 Mg Capdr 40 Mg PO DAILY Cymbalta DR (Duloxetine HCl) 60 Mg Capdr 120 Mg PO DAILY Review of Systems General / Constitutional: No: Fever Eyes: No: Visual changes HENT: No: Headaches Cardiovascular: No: Chest Pain or Discomfort Respiratory: No: Shortness of Breath Gastrointestinal: No: Abdominal Pain Genitourinary: No: Dysuria Musculoskeletal: Positive: Pain Skin: No Rash Neurologic: No: Weakness Psychiatric: No: Depression Endocrine: No: Polydipsia Hematologic/Lymphatic: No: Easy Bruising Physical Exam Narrative Psych: Normal mood and affect. Normal insight and judgment. SKIN: Focused skin assessment reveals no rash. Skin is warm and dry. Palpation shows no induration or nodules. Right leg: Patient has a chronic ulceration over the mid right tibia. There is a hardened yellow covering over the wound. There is no active drainage. There is no surrounding erythema or warmth Data Data Last Documented VS Vital Signs Date Time Temp Pulse Resp B/P (MAP) Pulse Ox O2 Delivery O2 Flow Rate FiO2 11/22/16 10:30 98.8 113 20 172/94 (120) 96 Orders Orders Tibia/Fibula (Ap/Lat) (11/22/16 ) Oxycodone-Acetamin 5-325 Mg (Percocet (11/22/16 13:00) MDM Medical Decision Making Medical Screen Exam Complete: Yes Emergency Medical Condition: Yes Medical Record Reviewed: Yes Differential Diagnosis Osteomyelitis, chronic wound, chronic pain Narrative Course I have reviewed the patient's electronic medical record. I reviewed her right tibia x-rays which show no involvement of the bony cortex to suggest osteomyelitis Patient should follow-up with primary care and continue her wound management The rest of her leg looks normal No erythema or warmth or swelling etc. No clinical suspicion of DVT and there was no injury Diagnosis Primary Impression: Chronic ulcer of right leg Qualified Codes: L97.911 - Non-pressure chronic ulcer of unspecified part of right lower leg limited to breakdown of skin Additional Instructions: The patient was advised to follow up with their physician and return if they worsen. Med/Other Pt SpecificInfo: Other Disposition: 01 DISCHARGE HOME Condition: Stable Navin Collins MD Nov 22, 2016 12:05
--- NOTE | 2016-11-22 12:22 | RADRPT ---
EXAM DATE/TIME: 11/22/2016 12:06 [facility] COMPARISON: No previous studies available for comparison. INDICATIONS : Right tibia wound. No known injury MEDICAL HISTORY : Lupus. SURGICAL HISTORY : None. ENCOUNTER: Initial ACUITY: 1 month PAIN SCORE: 5/10 LOCATION: Right anterior midshaft tibia FINDINGS: Two view examination of the right tibia demonstrates no evidence of fracture or dislocation. Bony mi neralization is normal. A small pretibial soft tissue defect. No radiopaque foreign body. CONCLUSION: Small pretibial soft tissue defect. No radiopaque foreign body. Juancho Love Jr., MD on November 22, 2016 at 12:19 Board Certified Radiologist. This report was verified electronically.
[2016-11-22] MEDS ORDERED: oxyCODONE/ACETAMINOPHEN 5 MG/325 MG TAB PO ONE (13:00)
== END 2016-11-22 13:20 | disposition home or self-care (01) ==
LOC: PHED 10:28
DX: L97.911 Non-pressure chronic ulcer of unspecified part of right lower leg limited to breakdown of skin (principal)
CPT/HCPCS: 73590; 99283

== ENCOUNTER 2016-12-14 21:39 | Emergency (ER) | payer OTHER ==
[~2016-12-14] VITALS: Ht 162.6 cm; Wt 118.0 kg
[~2016-12-14 21:39] MED LIST changes: +AMLO2.5T PO; -AMLO5TAB2 PO; +CETI10CH CHEW; +CIPR500T2 PO; +GENT0.1C TOPICAL; +IPRASOL INH; +SPIRCAP INH; -VENTAER INH; -ZOFR4TAB3 SL; -ZYRT10CA PO
[2016-12-14 21:41] VITALS: BP 197/103; PULSE 113; RESP 16; TEMP 98.7; O2SAT 97
[2016-12-15] MEDS ORDERED: VANCOMYCIN INJ 1,000 MG in SODIUM CHLOR 0.9% 250 ML INJ 250 ML IV STA (00:03)
[2016-12-15 00:52] LABS: AUTOMATED NEUTROPHIL # 9.5 TH/MM3 (1.8-7.7); BASOPHIL # 0.2 TH/MM3 (0-0.2); BASOPHIL % 1.4 % (0.0-2.0); EOSINOPHIL # 0.7 TH/MM3 (0-0.4); EOSINOPHIL % 4.1 % (0.0-4.0); HEMATOCRIT 39.1 % (35.0-46.0); HEMO FLAGS DIFF FINAL; LYMPH % 28.6 % (9.0-44.0); LYMPHOCYTE # 4.5 TH/MM3 (1.0-4.8); MEAN CELL VOLUME 78.7 FL (80.0-100.0); MEAN CORPUSCULAR HEMOGLOBIN 26.4 PG (27.0-34.0); MEAN CORPUSCULAR HGB CONC 33.6 % (32.0-36.0); MONO % 6.4 % (0.0-8.0); NEUT % 59.5 % (16.0-70.0); PLATELET COUNT 444 TH/MM3 (150-450); RED BLOOD COUNT 4.97 MIL/MM3 (4.00-5.30); RED CELL DISTRIBUTION WIDTH 15.9 % (11.6-17.2); WHITE BLOOD COUNT 15.9 TH/MM3 (4.0-11.0)
[2016-12-15] MEDS ORDERED: HYDROmorphone HCL PF 1 MG/ML VIAL IV PUSH ONE (01:00)
[2016-12-15 01:05] LABS: ALT (GPT) 29 U/L (10-53); ANION GAP 9 MEQ/L (5-15); AST (GOT) 22 U/L (15-37); BICARBONATE 26.5 MEQ/L (21.0-32.0); BLOOD UREA NITROGEN 8 MG/DL (7-18); CHLORIDE 101 MEQ/L (98-107); GLOMERULAR FILTRATION RATE 95 ML/MIN (>89); POTASSIUM 3.3 MEQ/L (3.5-5.1); SODIUM (NA) 136 MEQ/L (136-145)
[2016-12-15 01:07] LABS: ALKALINE PHOSPHATASE 192 U/L (45-117); TOTAL BILIRUBIN ADULT 0.2 MG/DL (0.2-1.0)
--- NOTE | 2016-12-15 01:17 | PD ---
HPI Chief Complaint: Skin Problem Time Seen by Provider: 00:00 Travel History International Travel<30 days: No Contact w/Intl Traveler<30days: No Traveled to known affect area: No History of Present Illness HPI HAS H/O LUPUS AND A RLE WOUND THAT HAS NOT HEALED NOW ABOUT 2 MONTHS. GIVEN LEVAQUIN FOR 2 WEEKS AND THEN CIPRO FOR ANOTHER 2 WEEKS AND STILL PRESENT....PATIENT C/O PAIN AND WOUND NOT IMPROVING PFSH Past Medical History Hx Anticoagulant Therapy: No Anemia: Yes Arthritis: Yes Asthma: Yes Anxiety: Yes Depression: Yes Heart Rhythm Problems: No Cancer: No Cardiovascular Problems: Yes (HTN ,) High Cholesterol: No Chest Pain: No Congestive Heart Failure: No COPD: No Cerebrovascular Accident: No Diabetes: No Diminished Hearing: No Endocrine: No Gastrointestinal Disorders: Yes (Fatty liver) GERD: Yes Genitourinary: Yes Headaches: Yes Hepatitis: No Hiatal Hernia: No Herniated Disk: Yes Hypertension: Yes Immune Disorder: No Implanted Vascular Access Dvce: No Kidney Stones: Yes Medical other: Yes (LUPUS LIKE CON'D ("BLOOD WON'T CLOT"), ANEMIA) Musculoskeletal: Yes Neurologic: Yes Psychiatric: Yes Reproductive: No Respiratory: Yes Immunizations Current: Yes Migraines: Yes Seizures: No Sleep Apnea: Yes (BiPAP) Thyroid Disease: No ?: Not Menopausal: Yes : 0 Para: 0 Ovarian Cysts: Yes Dilation and Curettage (D&C): Yes Past Surgical History Abdominal Surgery: No AICD: No Cardiac Surgery: Yes (ABLASION HYSTERECTOMY) Ear Surgery: Yes (Left) Endocrine Surgery: No Eye Surgery: No Genitourinary Surgery: Yes (Kidney stones ) Gynecologic Surgery: Yes (Ablation ) Hysterectomy: Yes Joint Replacement: No Neurologic Surgery: No Pacemaker: No Thoracic Surgery: No Tympanostomy Tube: Yes (LEFT EAR surgery August 2013) Other Surgery: Yes (Sinus, carpal tunnel ) Social History Alcohol Use: No Tobacco Use: Yes (Occ.) Substance Use: No Allergies-Medications (Allergen,Severity, Reaction): Coded Allergies: Sulfa (Sulfonamide Antibiotics) (Unverified Allergy, Severe, Wheezing, 03/20) aspirin (Unverified Allergy, Severe, WHEEZES, 12/14/16) bismuth subsalicylate (Unverified Allergy, Severe, 12/14/16) cannot breath diatrizoate meglumine (Unverified Allergy, Severe, Anaphylaxis, 12/14/16) diphenhydramine (Unverified Allergy, Severe, Respiratory Failure, 12/14/16) fentanyl (Unverified Allergy, Severe, itching, 12/14/16) gadobenic acid (Unverified Allergy, Severe, Anaphylaxis, 12/14/16) gadodiamide (Unverified Allergy, Severe, Anaphylaxis, 12/14/16) gadoteridol (Unverified Allergy, Severe, Anaphylaxis, 12/14/16) ibuprofen (Unverified Allergy, Severe, Respiratory Failure, 12/14/16) iodixanol (Unverified Allergy, Severe, Anaphylaxis, 12/14/16) iohexol (Unverified Allergy, Severe, Anaphylaxis, 12/14/16) ipratropium (Unverified Allergy, Severe, THROAT CLOSES, 12/14/16) mesalamine (Unverified Allergy, Severe, 12/14/16) cannot breath penicillin G (Unverified Allergy, Severe, THROAT CLOSES, 12/14/16) metoclopramide (Unverified Allergy, Unknown, 12/14/16) PT STATMENT, "I JUST HAD A BAD REACTION TO IT" tramadol (Unverified Adverse Reaction, Unknown, UNKNOWN , 12/14/16) Reported Meds & Prescriptions Reported Meds & Active Scripts Active Lortab (Hydrocodone-Acetaminophen) 5-325 Mg Tab 1 Tab PO Q4H PRN Clindamycin (Clindamycin HCl) 300 Mg Cap 300 Mg PO TID 10 Days Reported Spiriva Handihaler (Tiotropium Inh) 18 Mcg Cap 18 Mcg INH BID 1 capsule = 18 mcg Cetirizine (Cetirizine HCl) 10 Mg Chew 10 Mg CHEW DAILY Duoneb (Ipratropium-Albuterol Neb) 0.5-2.5 Mg/3 Ml Neb 1 Nebule INH DIRECTED Amlodipine (Amlodipine Besylate) 2.5 Mg Tab 2.5 Mg PO DAILY Percocet (Oxycodone-Acetaminophen) 7.5-325 mg Tab 1 Tab PO Q6HR PRN Advair Diskus Inh (Fluticasone-Salmeterol Inh) 500-50 Mcg/Blist Aer 1 Puff INH BID Rinse mouth after use. Xanax (Alprazolam) 1 Mg Tab 1 Mg PO Q6H PRN Singulair (Montelukast Sodium) 10 Mg Tab 10 Mg PO HS Prevacid (Lansoprazole) 30 Mg Capdr 40 Mg PO DAILY Cymbalta DR (Duloxetine HCl) 60 Mg Capdr 120 Mg PO DAILY Review of Systems Except as stated in HPI: all other systems reviewed are Neg Skin: Positive Lesions (PRESENT FOR 2 MONTHS) Physical Exam Narrative GENERAL: SKIN: Warm and dry. HEAD: Atraumatic. Normocephalic. EYES: Pupils equal and round. No scleral icterus. No injection or drainage. ENT: No nasal bleeding or discharge. Mucous membranes pink and moist. NECK: Trachea midline. No JVD. CARDIOVASCULAR: Regular rate and rhythm. RESPIRATORY: No accessory muscle use. Clear to auscultation. Breath sounds equal bilaterally. GASTROINTESTINAL: Abdomen soft, non-tender, nondistended. MUSCULOSKELETAL: Extremities without clubbing, cyanosis, or edema. No obvious deformities. 6CM STAGE 2 WOUND ANTERIOR TIB REGION, NO STREAKING, NO INDURATION , PRESENT INGUINAL LAD NOTED NEUROLOGICAL: Awake and alert. No obvious cranial nerve deficits. Motor grossly within normal limits. Five out of 5 muscle strength in the arms and legs. Normal speech. PSYCHIATRIC: Appropriate mood and affect; insight and judgment normal. Data Data Last Documented VS Vital Signs Date Time Temp Pulse Resp B/P (MAP) Pulse Ox O2 Delivery O2 Flow Rate FiO2 12/15/16 02:19 12/14/16 21:41 98.7 113 16 97 Room Air Orders Orders Us Leg Venous Doppler (12/15/16 00:03) Complete Blood Count With Diff (12/15/16 00:03) Comprehensive Metabolic Panel (12/15/16 00:03) Iv Access Insert/Monitor (12/15/16 00:03) Ecg Monitoring (12/15/16 00:03) Oximetry (12/15/16 00:03) Lactic Acid Sepsis Protocol (12/15/16 00:03) Blood Culture (12/15/16 00:03) Vancomycin Inj (Vancomycin Inj) (12/15/16 00:03) Hydromorphone Pf Inj (Dilaudid Pf Inj) (12/15/16 01:00) Hydromorphone Pf Inj (Dilaudid Pf Inj) (12/15/16 01:45) Labs Laboratory Tests Test 12/15/16 00:30 White Blood Count 15.9 TH/MM3 Red Blood Count 4.97 MIL/MM3 Hemoglobin 13.1 GM/DL Hematocrit 39.1 % Mean Corpuscular Volume 78.7 FL Mean Corpuscular Hemoglobin 26.4 PG Mean Corpuscular Hemoglobin Concent 33.6 % Red Cell Distribution Width 15.9 % Platelet Count 444 TH/MM3 Mean Platelet Volume 7.8 FL Neutrophils (%) (Auto) 59.5 % Lymphocytes (%) (Auto) 28.6 % Monocytes (%) (Auto) 6.4 % Eosinophils (%) (Auto) 4.1 % Basophils (%) (Auto) 1.4 % Neutrophils # (Auto) 9.5 TH/MM3 Lymphocytes # (Auto) 4.5 TH/MM3 Monocytes # (Auto) 1.0 TH/MM3 Eosinophils # (Auto) 0.7 TH/MM3 Basophils # (Auto) 0.2 TH/MM3 CBC Comment DIFF FINAL Differential Comment Blood Urea Nitrogen 8 MG/DL Creatinine 0.69 MG/DL Random Glucose 127 MG/DL Total Protein 7.8 GM/DL Albumin 3.6 GM/DL Calcium Level 8.9 MG/DL Alkaline Phosphatase 192 U/L Aspartate Amino Transf (AST/SGOT) 22 U/L Alanine Aminotransferase (ALT/SGPT) 29 U/L Total Bilirubin 0.2 MG/DL Sodium Level 136 MEQ/L Potassium Level 3.3 MEQ/L Chloride Level 101 MEQ/L Carbon Dioxide Level 26.5 MEQ/L Anion Gap 9 MEQ/L Estimat Glomerular Filtration Rate 95 ML/MIN Lactic Acid Level 1.7 mmol/L [facility] Medical Decision Making Medical Screen Exam Complete: Yes Emergency Medical Condition: Yes Medical Record Reviewed: Yes Differential Diagnosis CELLULITIS V DELAYED WOUND HEALING V DVT Narrative Course REACTIVE LEUKOCYTOSIS BUT NO MAJOR SHIFT NOTED, DVT ULTRASOUND STUDY IS NEGATIVE WELL.. Diagnosis Primary Impression: Cellulitis Qualified Codes: L03.115 - Cellulitis of right lower limb Additional Impression: chronic ulcer RLE Patient Instructions: Cellulitis (ED), General Instructions Scripts Hydrocodone-Acetaminophen (Lortab) 5-325 Mg Tab 1 TAB PO Q4H Y for PAIN, #20 TAB 0 Refills Prov: Ej Abebe MD 12/15/16 Clindamycin (Clindamycin) 300 Mg Cap 300 MG PO TID for Infection for 10 Days, #30 CAP 0 Refills Prov: Ej Abebe MD 12/15/16 Disposition: 01 DISCHARGE HOME Condition: Stable Ej Abebe MD Dec 15, 2016 01:17
[2016-12-15] MEDS ORDERED: CLIN1CAP6 PO (01:21)
[2016-12-15] MEDS ORDERED: HYDR-3533 PO (01:22)
--- NOTE | 2016-12-15 01:32 | RADRPT ---
EXAM DATE/TIME: 12/15/2016 00:57 [facility] COMPARISON: No previous studies available for comparison. EXTERNAL COMPARISON : [facility], US LEG, RIGHT VENOUS DOPPLER, December 16, 2015 INDICATIONS : Right leg redness and pain. MEDICAL HISTORY : Gastroesophageal reflux disease. Hypertension. Renal calculi. Hearing loss. Migraines. Asthma. Blo od clotting disorder. Fatty liver disease. Ovarian cysts. Arthritis. Depression. Anxiety. Sleep apnea . Anemia. SURGICAL HISTORY : Hysterectomy. Carpal tunnel surgery. Kidney stone removal. Left ear surgery. Dilation and curettag e. Sinus surgery. ENCOUNTER: Subsequent ACUITY: 2 weeks PAIN SCORE: 8/10 LOCATION: Right leg. TECHNIQUE: Venous ultrasound of the leg was performed from the inguinal ligament to the proximal calf. Real-tonny e, color Doppler and spectral tracing, compression and augmentation techniques were used. FINDINGS: There is normal compressibility of the deep venous system from the inguinal region to the proximal ca lf. No echogenic clot is seen in the lumen of the common femoral, femoral, popliteal, and posterior tibial veins. There is a normal response of the venous system to proximal and distal augmentation an d respiration. CONCLUSION: 1. Negative for deep venous thrombosis. Mildly enlarged right inguinal lymph nodes. Zoran Randall MD on December 15, 2016 at 1:30 Board Certified Radiologist. This report was verified electronically.
[2016-12-15] MEDS ORDERED: HYDROmorphone HCL PF 1 MG/ML VIAL IVS ONE (01:45)
== END 2016-12-15 02:19 | disposition home or self-care (01) ==
LOC: NEPD 21:39
DX: L03.115 Cellulitis of right lower limb (principal); L97.919 Non-pressure chronic ulcer of unspecified part of right lower leg with unspecified severity; M32.9 Systemic lupus erythematosus, unspecified; J45.909 Unspecified asthma, uncomplicated; D64.9 Anemia, unspecified; M19.90 Unspecified osteoarthritis, unspecified site; G47.33 Obstructive sleep apnea (adult) (pediatric)
CPT/HCPCS: 80053; 83605; 85025; 87040; 93971; 96365; 96375; 96376; 99285; J1170; J3370; J7050

== ENCOUNTER 2016-12-22 18:51 | Emergency (ER) | payer OTHER ==
[~2016-12-22 18:51] MED LIST changes: -CIPR500T2 PO; +CLIN1CAP6 PO; -GENT0.1C TOPICAL; +HYDR-3533 PO
[2016-12-22 18:53] VITALS: BP 181/104; PULSE 107; RESP 24; TEMP 98.8; O2SAT 99
--- NOTE | 2016-12-22 19:21 | PD ---
Physical Exam Date Seen by Provider: Dec 22, 2016 Time Seen by Provider: 19:18 Narrative 41-year-old white female presents to emergency department with a complaint of subjective fever. She states that she has a long-standing healing lesion to her right lower leg for the past 2-1/2 months. Her primary care doctor was intending on getting her referred to facilities specialist. She is currently in pain management and takes Percocet 10. She states that she is also having worsening pain in her right lower leg. Patient is in pain management for chronic back pain. PAIN 11/11. Vital signs reviewed. Awaiting bed placement. Data Data Last Documented VS Vital Signs Date Time Temp Pulse Resp B/P (MAP) Pulse Ox O2 Delivery O2 Flow Rate FiO2 12/22/16 18:53 98.8 107 24 181/104 (129) 99 Room Air [facility] Medical Record Reviewed: No Supervised Visit with TULIO: Zoran Roberson Dec 22, 2016 19:21
[2016-12-22] MEDS ORDERED: SODIUM CHLOR 0.9% 1000 ML INJ 1,000 ML IV SCH (19:42)
[2016-12-22 19:43] VITALS: BP 182/86; PULSE 100; RESP 18; TEMP 98.7; O2SAT 100
[2016-12-22 20:34] LABS: AUTOMATED NEUTROPHIL # 8.9 TH/MM3 (1.8-7.7); BASOPHIL # 0.1 TH/MM3 (0-0.2); EOSINOPHIL # 0.7 TH/MM3 (0-0.4); EOSINOPHIL % 4.5 % (0.0-4.0); HEMATOCRIT 40.3 % (35.0-46.0); HEMO FLAGS DIFF FINAL; LYMPH % 27.1 % (9.0-44.0); MEAN CELL VOLUME 78.2 FL (80.0-100.0); MEAN CORPUSCULAR HEMOGLOBIN 25.4 PG (27.0-34.0); MEAN CORPUSCULAR HGB CONC 32.5 % (32.0-36.0); NEUT % 61.4 % (16.0-70.0); PLATELET COUNT 469 TH/MM3 (150-450); RED BLOOD COUNT 5.15 MIL/MM3 (4.00-5.30); RED CELL DISTRIBUTION WIDTH 15.6 % (11.6-17.2); WHITE BLOOD COUNT 14.6 TH/MM3 (4.0-11.0)
[2016-12-22 20:49] LABS: BICARBONATE 26.9 MEQ/L (21.0-32.0); POTASSIUM 3.3 MEQ/L (3.5-5.1)
--- NOTE | 2016-12-22 20:53 | PD ---
HPI Chief Complaint: Skin Problem Time Seen by Provider: 19:30 Travel History International Travel<30 days: No Contact w/Intl Traveler<30days: No Traveled to known affect area: No History of Present Illness HPI Patient is a 41-year-old female who presents to emergency room with complaints of right lower leg infection. Patient reports that she shaved her legs 2 months ago and developed a wound infection. Reports that for the past 2 months , she has had an ulceration to her right anterior curtis. Patient reports that she has been on multiple courses of antibiotics but has not been able to get rid of this ulceration. She was last on antibiotics 2 weeks ago. She did follow up with her PCP Dr Morel on Tuesday and saw the [employer]ST[employer]ER there and was told that she will ultimately need to go to a wound care center for further treatment. Reports that she is still having subjective fevers and has increased pain to her right lower leg. PFSH Past Medical History Hx Anticoagulant Therapy: No Anemia: Yes Arthritis: Yes Asthma: Yes Anxiety: Yes Depression: Yes Heart Rhythm Problems: No Cancer: No Cardiovascular Problems: Yes (HTN ,) High Cholesterol: No Chest Pain: No Congestive Heart Failure: No COPD: No Cerebrovascular Accident: No Diabetes: No Diminished Hearing: No Endocrine: No Gastrointestinal Disorders: Yes (Fatty liver) GERD: Yes Genitourinary: Yes Headaches: Yes Hepatitis: No Hiatal Hernia: No Herniated Disk: Yes Hypertension: Yes Immune Disorder: No Implanted Vascular Access Dvce: No Kidney Stones: Yes Medical other: Yes (LUPUS LIKE CON'D ("BLOOD WON'T CLOT"), ANEMIA) Musculoskeletal: Yes Neurologic: Yes Psychiatric: Yes Reproductive: No Respiratory: Yes (asthma) Immunizations Current: Yes Migraines: Yes Seizures: No Sleep Apnea: Yes (BiPAP) Thyroid Disease: No ?: Not Menopausal: Yes : 0 Para: 0 Ovarian Cysts: Yes Dilation and Curettage (D&C): Yes Past Surgical History Abdominal Surgery: No AICD: No Cardiac Surgery: Yes (ABLASION HYSTERECTOMY) Ear Surgery: Yes (Left) Endocrine Surgery: No Eye Surgery: No Genitourinary Surgery: Yes (Kidney stones ) Gynecologic Surgery: Yes (Ablation ) Hysterectomy: Yes Joint Replacement: No Neurologic Surgery: No Pacemaker: No Thoracic Surgery: No Tympanostomy Tube: Yes (LEFT EAR surgery August 2013) Other Surgery: Yes (Sinus, carpal tunnel ) Social History Alcohol Use: No Tobacco Use: Yes (Occ.) Substance Use: No Allergies-Medications (Allergen,Severity, Reaction): Coded Allergies: Sulfa (Sulfonamide Antibiotics) (Unverified Allergy, Severe, Wheezing, ) aspirin (Unverified Allergy, Severe, WHEEZES, 12/22/16) bismuth subsalicylate (Unverified Allergy, Severe, 12/22/16) cannot breath diatrizoate meglumine (Unverified Allergy, Severe, Anaphylaxis, 12/22/16) diphenhydramine (Unverified Allergy, Severe, Respiratory Failure, 12/22/16) fentanyl (Unverified Allergy, Severe, itching, 12/22/16) gadobenic acid (Unverified Allergy, Severe, Anaphylaxis, 12/22/16) gadodiamide (Unverified Allergy, Severe, Anaphylaxis, 12/22/16) gadoteridol (Unverified Allergy, Severe, Anaphylaxis, 12/22/16) ibuprofen (Unverified Allergy, Severe, Respiratory Failure, 12/22/16) iodixanol (Unverified Allergy, Severe, Anaphylaxis, 12/22/16) iohexol (Unverified Allergy, Severe, Anaphylaxis, 12/22/16) ipratropium (Unverified Allergy, Severe, THROAT CLOSES, 12/22/16) mesalamine (Unverified Allergy, Severe, 12/22/16) cannot breath penicillin G (Unverified Allergy, Severe, THROAT CLOSES, 12/22/16) metoclopramide (Unverified Allergy, Unknown, 12/22/16) PT STATMENT, "I JUST HAD A BAD REACTION TO IT" tramadol (Unverified Adverse Reaction, Unknown, UNKNOWN , 12/22/16) Reported Meds & Prescriptions Reported Meds & Active Scripts Active Reported Spiriva Handihaler (Tiotropium Inh) 18 Mcg Cap 18 Mcg INH BID 1 capsule = 18 mcg Cetirizine (Cetirizine HCl) 10 Mg Chew 10 Mg CHEW DAILY Duoneb (Ipratropium-Albuterol Neb) 0.5-2.5 Mg/3 Ml Neb 1 Nebule INH DIRECTED Amlodipine (Amlodipine Besylate) 2.5 Mg Tab 2.5 Mg PO DAILY Percocet (Oxycodone-Acetaminophen) 7.5-325 mg Tab 1 Tab PO Q6HR PRN Advair Diskus Inh (Fluticasone-Salmeterol Inh) 500-50 Mcg/Blist Aer 1 Puff INH BID Rinse mouth after use. Xanax (Alprazolam) 1 Mg Tab 1 Mg PO Q6H PRN Singulair (Montelukast Sodium) 10 Mg Tab 10 Mg PO HS Prevacid (Lansoprazole) 30 Mg Capdr 40 Mg PO DAILY Cymbalta DR (Duloxetine HCl) 60 Mg Capdr 120 Mg PO DAILY Review of Systems General / Constitutional: Positive: Fever (subjective fever) Eyes: No: Visual changes HENT: No: Headaches Cardiovascular: No: Chest Pain or Discomfort Respiratory: No: Shortness of Breath Gastrointestinal: No: Abdominal Pain Genitourinary: No: Dysuria Musculoskeletal: No: Pain Skin: Positive Other (anterior curtis ulceration), No Rash Neurologic: No: Weakness Psychiatric: No: Depression Endocrine: No: Polydipsia Hematologic/Lymphatic: No: Easy Bruising Physical Exam Narrative GENERAL: Mild distress SKIN: Focused skin assessment warm/dry. HEAD: Atraumatic. Normocephalic. EYES: Pupils equal and round. No scleral icterus. No injection or drainage. ENT: No nasal bleeding or discharge. Mucous membranes pink and moist. NECK: Trachea midline. No JVD. CARDIOVASCULAR: Regular rate and rhythm. No murmur appreciated. RESPIRATORY: No accessory muscle use. Clear to auscultation. Breath sounds equal bilaterally. GASTROINTESTINAL: Abdomen soft, non-tender, nondistended. Hepatic and splenic margins not palpable. MUSCULOSKELETAL: No obvious deformities. No clubbing. No cyanosis. Patient with 5cm x 3 cm right lower extremity ulceration to anterior curtis with areas of yellow necrosis and surrounding cellulitis NEUROLOGICAL: Awake and alert. No obvious cranial nerve deficits. Motor grossly within normal limits. Normal speech. PSYCHIATRIC: Appropriate mood and affect; insight and judgment normal. Data Data Last Documented VS Vital Signs Date Time Temp Pulse Resp B/P (MAP) Pulse Ox O2 Delivery O2 Flow Rate FiO2 12/22/16 19:43 98.7 100 18 182/86 (118) 100 Room Air Orders Orders Basic Metabolic Panel (Bmp) (12/22/16 19:42) Complete Blood Count With Diff (12/22/16 19:42) Iv Access Insert/Monitor (12/22/16 19:42) Ecg Monitoring (12/22/16 19:42) Sodium Chlor 0.9% 1000 Ml Inj (Ns 1000 M (12/22/16 19:42) Ed Urine Pregnancytest Poc (12/22/16 19:42) Vancomycin Inj (Vancomycin Inj) (12/22/16 21:00) Tibia/Fibula (Ap/Lat) (12/22/16 ) Potassium Chloride (Kcl) (12/22/16 21:15) Oxycodone-Acetamin 5-325 Mg (Percocet (12/22/16 21:15) Wound Culture And Gram Stain (12/22/16 21:26) Asp:No Reaction To [place]/Vanc (Asp Crit (12/22/16 21:30) Asp: Does Not Meet Inpt Admit (Asp Crit: (12/22/16 21:30) Asp: Iv Antibiotics Admit Only (Asp Crit (12/22/16 21:30) Asp: Location Of [place] Admin (Asp Crit: (12/22/16 21:30) [facility] Information ([facility] (12/22/16 21:30) Dalbavancin Inj (Dalvance Inj) (12/22/16 21:28) Morphine Inj (Morphine Inj) (12/22/16 21:45) Labs Laboratory Tests Test 12/22/16 20:08 White Blood Count 14.6 TH/MM3 Red Blood Count 5.15 MIL/MM3 Hemoglobin 13.1 GM/DL Hematocrit 40.3 % Mean Corpuscular Volume 78.2 FL Mean Corpuscular Hemoglobin 25.4 PG Mean Corpuscular Hemoglobin Concent 32.5 % Red Cell Distribution Width 15.6 % Platelet Count 469 TH/MM3 Mean Platelet Volume 7.6 FL Neutrophils (%) (Auto) 61.4 % Lymphocytes (%) (Auto) 27.1 % Monocytes (%) (Auto) 6.0 % Eosinophils (%) (Auto) 4.5 % Basophils (%) (Auto) 1.0 % Neutrophils # (Auto) 8.9 TH/MM3 Lymphocytes # (Auto) 4.0 TH/MM3 Monocytes # (Auto) 0.9 TH/MM3 Eosinophils # (Auto) 0.7 TH/MM3 Basophils # (Auto) 0.1 TH/MM3 CBC Comment DIFF FINAL Differential Comment Blood Urea Nitrogen 4 MG/DL Creatinine 0.62 MG/DL Random Glucose 157 MG/DL Calcium Level 9.1 MG/DL Sodium Level 135 MEQ/L Potassium Level 3.3 MEQ/L Chloride Level 100 MEQ/L Carbon Dioxide Level 26.9 MEQ/L Anion Gap 8 MEQ/L Estimat Glomerular Filtration Rate 107 ML/MIN MDM Medical Decision Making Medical Screen Exam Complete: Yes Emergency Medical Condition: Yes Medical Record Reviewed: Yes Interpretation(s) Vital Signs Date Time Temp Pulse Resp B/P (MAP) Pulse Ox O2 Delivery O2 Flow Rate FiO2 12/22/16 19:43 98.7 100 18 182/86 (118) 100 Room Air 12/22/16 18:53 98.8 107 24 181/104 (129) 99 Room Air Differential Diagnosis Differential includes leg ulceration with failed outpatient treatment, cellulitis Narrative Course Patient is a 41-year-old female who presents to emergency room with complaints of leg ulceration. Patient reports that she has had this ulceration for the past 2 months and has been on multiple courses of antibiotics and has failed outpatient treatment. Patient reports fevers at home, but increased pain to the area. She is here for evaluation of this. Vital Signs Date Time Temp Pulse Resp B/P (MAP) Pulse Ox O2 Delivery O2 Flow Rate FiO2 12/22/16 19:43 98.7 100 18 182/86 (118) 100 Room Air 12/22/16 18:53 98.8 107 24 181/104 (129) 99 Room Air Lab work ordered, IV Vanco initially ordered and then canceled, plan to administer dalvance with ultimate discharge to home as she does not meet inpatient criteria and she has been on 6 rounds of antibiotics for treatment of her cellulitis. patient understands that she ultimately will need to follow up with wound care center as soon as possible. she will follow up with her pcp in 2 -3 days for wound check. I did reviewed Dalvance antibiotic with patient and she is agreeable to treatment with this as "no antibiotics has helped me with my cellulitis." Diagnosis Primary Impression: Cellulitis Qualified Codes: L03.115 - Cellulitis of right lower limb Patient Instructions: General Instructions, Narcotic given in the ED Departure Forms: Tests/Procedures Additional Instructions: You were given a dose of Dalvance today Please follow up with your primary care doctor in 2-3 days for wound check Return to ER if symptoms worsen or progress Return to ER as needed Please follow up with wound center as soon as possible Disposition: 01 DISCHARGE HOME Condition: Stable Malu Darling DO Dec 22, 2016 20:53
[2016-12-22] MEDS ORDERED: VANCOMYCIN INJ 1,650 MG in SODIUM CHLORID 0.9% 500 ML INJ 500 ML IV ONE (21:00)
[2016-12-22] MEDS ORDERED: POTASSIUM CHLORIDE 10 MEQ CONTROLLED RELEASE TAB PO ONE (21:15)
[2016-12-22] MEDS ORDERED: oxyCODONE/ACETAMINOPHEN 5 MG/325 MG TAB PO ONE (21:15)
[2016-12-22] MEDS ORDERED: DALBAVANCIN INJ 1,500 MG in DEXTROSE 5% IN WATE 500 ML INJ 500 ML IV STA ×2 (21:28)
[2016-12-22] MEDS ORDERED: ASP: Only reason for admit - IV antibiotics OTHER ONE (21:30)
[2016-12-22] MEDS ORDERED: MISCELLANEOUS PHARMACY INFORMATION XX ONE (21:30)
[2016-12-22] MEDS ORDERED: ASP: No known hypersensitivity to Vanco, Telavancin, Dalbavancin OTHER ONE (21:30)
[2016-12-22] MEDS ORDERED: ASP: Does not meet inpatient admission criteria OTHER ONE (21:30)
[2016-12-22] MEDS ORDERED: ASP: Location of Dalbavancin administration OTHER ONE (21:30)
[2016-12-22] MEDS ORDERED: MORPHINE SULFATE 4 MG/ML INJ IV PUSH ONE (21:45)
--- NOTE | 2016-12-22 22:20 | RADRPT ---
EXAM DATE/TIME: 12/22/2016 21:13 [facility] COMPARISON: TIBIA/FIBULA RIGHT (AP/LAT), November 22, 2016, 12:06. INDICATIONS : Possible skin infection to right lower leg. MEDICAL HISTORY : Cardiovascular disease. SURGICAL HISTORY : Hysterectomy. ENCOUNTER: Initial ACUITY: 1 day PAIN SCORE: 4/10 LOCATION: Right anterior surface of lower leg. FINDINGS: There is soft tissue ulceration along the midportion of the right curtis. There is no underlying bony abnormality involving the tibia or fibula. No fracture or dislocation is noted. No subcutaneous emph ysema is noted. CONCLUSION: Focal ulceration is noted along the midportion of the right curtis without underlying subcutaneous emph ysema or bony abnormality. Enio Maza MD on December 22, 2016 at 22:11 Board Certified Radiologist. This report was verified electronically.
[2016-12-22 23:10] VITALS: BP 137/69; PULSE 86; RESP 20; O2SAT 97
== END 2016-12-22 23:51 | disposition home or self-care (01) ==
LOC: NEPE 18:51
DX: L03.115 Cellulitis of right lower limb (principal); I10 Essential (primary) hypertension; Z72.0 Tobacco use
CPT/HCPCS: 73590; 80048; 84703; 85025; 96361; 96365; 96375; 99284; J0875; J2270; J7030; J7060

== ENCOUNTER → 2017-02-10 | Day surgery (SDC) | payer OTHER ==
[~2017-02-10] VITALS: Ht 162.6 cm; Wt 118.0 kg
[~2017-02-10] MED LIST changes: +AMLO10 PO; -AMLO2.5T PO; +CETI-1 PO; -CETI10CH CHEW; -CLIN1CAP6 PO; +CLINDAMYCIN INJ 600 MG in SODIUM CHLORIDE 0.9% INJ 50 ML IV PRN; +FERR325C PO; +FLUT1SPR5 EACH NARE; -HYDR-3533 PO; +HYDROmorphone HCL PF 0.5 MG/0.5 ML SYRINGE ONE; +HYDROmorphone HCL PF 1 MG/ML VIAL ONE; +LACTATED RINGER'S 1000 ML IV PRN; +LEVA750T9 PO; +METOPROLOL TARTRATE 25 MG TAB PO PRN; +MIDAZOLAM HCL 2 MG/2 ML VIAL ONE; +MOME17I EACH NARE; +MORPHINE SULFATE 8 MG/ML INJ ONE; +OFLOXACIN 0.3% OPTH SOLN 5 ML BTL ONE; +PRED20 PO; +PREV15CA20 PO; -PREV30CA11 PO; +SODIUM CHLORID 0.9% 500 ML IV PRN; +VENTAER INH; +VITA1000 PO
--- NOTE | 2017-02-10 08:13 | MP ---
cc: BALTAZAR STARR M.D. DATE OF SURGERY: February 10, [address] Baltazar Starr PREOPERATIVE DIAGNOSIS Eustachian tube dysfunction. POSTOPERATIVE DIAGNOSIS Eustachian tube dysfunction. OPERATION PERFORMED Placement of right T-type pressure equalizing tube. INDICATION Jada Avila is a 41-year-old woman with a lifelong history of eustachian tube dysfunction. She has a deep infection in her right leg and will soon begin hyperbaric oxygen treatment. She is in need of a right PE tube to allow her to go into the pressure chamber. DESCRIPTION OF OPERATION The patient was taken to OR #4 and placed in the supine position. Following induction of general anesthesia and intubation using a laryngeal mask apparatus the right ear was examined under microscope and cleaned with a curette. Myringotomy was made in the posterior inferior quadrant and tympanum was aspirated of thin serous effusion. The T-type pressure equalizing tube was advanced in through the opening and the canal was filled with Floxin otic drops and cotton ball placed in the meatus and the procedure was terminated. The patient was reversed from anesthesia and taken to recovery in good condition. There were no complications. Blood loss was less than 1 mL. MD PIO Corona/FRANCISCO /8:06 AM /8:10 AM
[2017-02-10 09:10] VITALS: BP 129/72; PULSE 87; RESP 18; TEMP 98.8; O2SAT 93
== END | disposition home or self-care (01) ==
LOC: PHSDC 06:10
PROVIDERS: ATTEND Otolaryngology
DX: H69.83 Other specified disorders of Eustachian tube, bilateral (principal)
CPT/HCPCS: 00126; 69436; J1170; J2250; J2270; J7120

== ENCOUNTER 2017-03-11 18:31 | Emergency (ER) | payer OTHER ==
[~2017-03-11] VITALS: Ht 162.6 cm; Wt 116.3 kg
[~2017-03-11 18:31] MED LIST changes: -CLINDAMYCIN INJ 600 MG in SODIUM CHLORIDE 0.9% INJ 50 ML IV PRN; -FERR325C PO; -HYDROmorphone HCL PF 0.5 MG/0.5 ML SYRINGE ONE; -HYDROmorphone HCL PF 1 MG/ML VIAL ONE; -LACTATED RINGER'S 1000 ML IV PRN; -METOPROLOL TARTRATE 25 MG TAB PO PRN; -MIDAZOLAM HCL 2 MG/2 ML VIAL ONE; -MOME17I EACH NARE; -MORPHINE SULFATE 8 MG/ML INJ ONE; -OFLOXACIN 0.3% OPTH SOLN 5 ML BTL ONE; -SODIUM CHLORID 0.9% 500 ML IV PRN
[2017-03-11 18:34] VITALS: BP 182/90; PULSE 119; RESP 20; TEMP 98.2; O2SAT 94
[2017-03-11 19:00] VITALS: BP 184/85; PULSE 104; RESP 20; O2SAT 100
[2017-03-11] MEDS ORDERED: HYDROmorphone HCL PF 1 MG/ML VIAL IV PUSH ONE ×2 (19:45→21:15)
[2017-03-11] MEDS ORDERED: ONDANSETRON HCL 4 MG/2 ML VIAL IV PUSH ONE (19:45)
[2017-03-11 20:20] VITALS: BP 135/89; PULSE 102; RESP 20; O2SAT 97
--- NOTE | 2017-03-11 21:00 | PD ---
HPI Chief Complaint: Pain: Acute or Chronic Time Seen by Provider: 19:51 Travel History International Travel<30 days: No Contact w/Intl Traveler<30days: No Traveled to known affect area: No History of Present Illness HPI 41-year-old female presents to the emergency department for complaint of right anterior curtis pain since undergoing wound debridement this afternoon by Dr. Snyder and [place]. Patient states that she has been under the care of Dr. Wall since September after developing a wound infection that required extensive debridement and hyperbaric oxygen therapy. Patient states that she typically receives an evaluation by her wound care doctor with wound debridement and scraping every week however her specialist is been away for the past 2 weeks on vacation and returned today and patient states that the wound debridement process was more extensive than usual and she did not receive Dilaudid after the procedure which is typical for her because he suddenly she hasn't needed the medication but after returning home pain has progressively increased and decided to come to the emergency room for evaluation as it was after hours and could not contact with her wound management physician. Patient denies any fever or chills. Patient denies any swelling or redness or drainage from the site. Patient denies any ascending erythema or right groin pain. Patient is not diabetic. Patient is currently on Levaquin. Patient states she is here specifically to cause of localized focal wound pain post debridement. Patient denies other concerns or complaints. Patient does take chronic pain medication that typically manages her pain well but states it is not providing her sufficient pain relief at this time. The patient rates her pain at the localized site 10 over 10 in intensity. PFSH Past Medical History Narrative Medical Arthritis anemia asthma anxiety depression hypertension GERD lupus migraines and sleep apnea with CPAP D&C ovarian cyst right leg wound infection with hyperbaric therapy uterine ablation hysterectomy tobacco use nursing notes reviewed Hx Anticoagulant Therapy: No Anemia: Yes Arthritis: Yes Asthma: Yes Anxiety: Yes Depression: Yes Heart Rhythm Problems: No Cancer: No Cardiovascular Problems: Yes (HTN) High Cholesterol: No Chest Pain: No Congestive Heart Failure: No COPD: No Cerebrovascular Accident: No Diabetes: No Diminished Hearing: No Endocrine: No Gastrointestinal Disorders: Yes (Fatty liver, GERD) GERD: Yes Genitourinary: Yes Headaches: Yes Hepatitis: No Hiatal Hernia: No Herniated Disk: Yes Hypertension: Yes Immune Disorder: Yes (LUPUS) Implanted Vascular Access Dvce: No Kidney Stones: Yes Medical other: Yes (LUPUS LIKE CON'D ("BLOOD WON'T CLOT"), ANEMIA) Musculoskeletal: Yes Neurologic: Yes Psychiatric: Yes Reproductive: No Respiratory: Yes (asthma) Immunizations Current: Yes Migraines: Yes Seizures: No Sleep Apnea: Yes (BiPAP) Thyroid Disease: No ?: Not Menopausal: Yes : 0 Para: 0 Ovarian Cysts: Yes Dilation and Curettage (D&C): Yes Past Surgical History Abdominal Surgery: No AICD: No Cardiac Surgery: Yes (ABLASION HYSTERECTOMY) Ear Surgery: Yes (Left) Endocrine Surgery: No Eye Surgery: No Genitourinary Surgery: Yes (Kidney stones ) Gynecologic Surgery: Yes (Ablation ) Hysterectomy: Yes Joint Replacement: No Neurologic Surgery: No Pacemaker: No Thoracic Surgery: No Tympanostomy Tube: Yes (LEFT EAR surgery August 2013) Other Surgery: Yes (Sinus, carpal tunnel ) Social History Alcohol Use: No Tobacco Use: Yes (Occ.) Substance Use: No Allergies-Medications (Allergen,Severity, Reaction): Coded Allergies: Sulfa (Sulfonamide Antibiotics) (Verified Allergy, Severe, Wheezing, ) aspirin (Verified Allergy, Severe, WHEEZES, 03/11/17) bismuth subsalicylate (Verified Allergy, Severe, 03/11/17) cannot breath diatrizoate meglumine (Verified Allergy, Severe, Anaphylaxis, 03/11/17) diphenhydramine (Verified Allergy, Severe, Respiratory Failure, 03/11/17) fentanyl (Verified Allergy, Severe, itching, 03/11/17) gadobenic acid (Verified Allergy, Severe, Anaphylaxis, 03/11/17) gadodiamide (Verified Allergy, Severe, Anaphylaxis, 03/11/17) gadoteridol (Verified Allergy, Severe, Anaphylaxis, 03/11/17) ibuprofen (Verified Allergy, Severe, Respiratory Failure, 03/11/17) iodixanol (Verified Allergy, Severe, Anaphylaxis, 03/11/17) iohexol (Verified Allergy, Severe, Anaphylaxis, 03/11/17) ipratropium (Verified Allergy, Severe, THROAT CLOSES, 03/11/17) mesalamine (Verified Allergy, Severe, 03/11/17) "I'M NOT SURE IF I'M ALLERGIC TO THAT" metoclopramide (Verified Allergy, Severe, Anaphylaxis, 02/10/17) PT STATMENT, "I JUST HAD A BAD REACTION TO IT" penicillin G (Verified Allergy, Severe, THROAT CLOSES, 03/11/17) tramadol (Verified Adverse Reaction, Severe, Wheezing, 03/11/17) Uncoded Allergies: MACADAMIA NUTS (Allergy, Severe, Wheezing, 02/10/17) Reported Meds & Prescriptions Reported Meds & Active Scripts Active Reported Prednisone 20 Mg Tab 20 Mg PO DAILY Levaquin (Levofloxacin) 750 Mg Tablet 750 Mg PO DAILY Zyrtec (Cetirizine HCl) 10 Mg Tablet PO DAILY Vitamin D-1000 (Cholecalciferol) 1,000 Unit Tab 1,000 Units PO DAILY Prevacid (Lansoprazole) 15 Mg Capdr 15 Mg PO DAILY Norvasc (Amlodipine Besylate) 10 Mg Tab 10 Mg PO DAILY Flonase Nasal [place] (Fluticasone Nasal [place]) 50 Mcg/Act [place]ner 50 Mcg EACH NARE BID Ventolin Hfa 18 GM Inh (Albuterol Sulfate) 90 Mcg/Act Aer 1 Puff INH Q4H PRN Spiriva Handihaler (Tiotropium Inh) 18 Mcg Cap 18 Mcg INH BID 1 capsule = 18 mcg Duoneb (Ipratropium-Albuterol Neb) 0.5-2.5 Mg/3 Ml Neb 1 Nebule INH DIRECTED Percocet (Oxycodone-Acetaminophen) 7.5-325 mg Tab 1 Tab PO Q6HR PRN Advair Diskus Inh (Fluticasone-Salmeterol Inh) 500-50 Mcg/Blist Aer 1 Puff INH BID Rinse mouth after use. Xanax (Alprazolam) 1 Mg Tab 1 Mg PO Q6H PRN Singulair (Montelukast Sodium) 10 Mg Tab 10 Mg PO HS Cymbalta DR (Duloxetine HCl) 60 Mg Capdr 120 Mg PO DAILY Review of Systems Except as stated in HPI: all other systems reviewed are Neg Physical Exam Narrative GENERAL: Well-developed well-nourished female in no acute distress no respiratory distress intermittently confused SKIN: Warm and dry. MUSCULOSKELETAL: Extremities without clubbing, cyanosis, or edema. No obvious deformities. Attention right lower leg anterior curtis 7 cm x 5 cm oval chronic wound with packing in place good healthy wound margins with pink tissue no vesicles no pustules no induration no tenderness or crepitus. Data Data Last Documented VS Vital Signs Date Time Temp Pulse Resp B/P (MAP) Pulse Ox O2 Delivery O2 Flow Rate FiO2 03/11/17 20:38 16 03/11/17 20:20 102 135/89 (104) 97 Room Air 03/11/17 18:34 98.2 Orders Orders Tibia/Fibula (Ap/Lat) (03/11/17 ) ^ Saline Lock (03/11/17 19:43) Ondansetron Inj (Zofran Inj) (03/11/17 19:45) Hydromorphone Pf Inj (Dilaudid Pf Inj) (03/11/17 19:45) Wound Care (03/11/17 19:43) Wound Culture And Gram Stain (03/11/17 19:43) Hydromorphone Pf Inj (Dilaudid Pf Inj) (03/11/17 21:15) Ed Discharge Order (03/11/17 21:12) Sodium Chlorid 0.9% 500 Ml Inj (Ns 500 M (03/11/17 21:15) MDM Medical Decision Making Medical Screen Exam Complete: Yes Emergency Medical Condition: Yes Medical Record Reviewed: Yes Differential Diagnosis Postprocedure wound pain, wound infection, osteomyelitis, cellulitis no findings for necrotizing fasciitis Narrative Course Wound evaluated culture obtained; patient given Dilaudid 1 mg IV along with Zofran; imaging study ordered Right tibia fibula x-ray reveals no bony abnormality and no subcutaneous gas Patient informed of imaging results patient reports pain is markedly improved at 3/10 in intensity; patient stable for outpatient management and follow-up with her wound doctor on Tuesday she is to continue her antibiotic and return to the emergency department for any concerns Diagnosis Primary Impression: Leg pain, right Referrals: Primary Care Physician 3 days Follow-up with your wound management doctor on Tuesday call office to schedule follow-up appointment Patient Instructions: Narcotic given in the ED, General Instructions Additional Instructions: Continue current chronic medications as prescribed including her antibiotic Return to the emergency department for any concerns or change in condition such as redness drainage fever or increasing pain Monitor temperature every 4 hours with thermometer and take acetaminophen/ Tylenol for her 100.4F or greater Follow-up with your wound management provider on Tuesday call office to schedule follow-up appointment Disposition: 01 DISCHARGE HOME Condition: Stable Rachel Zimmerman MD Mar 11, 2017 21:00
--- NOTE | 2017-03-11 21:14 | RADRPT ---
EXAM DATE/TIME: 03/11/2017 20:09 [facility] COMPARISON: TIBIA/FIBULA RIGHT (AP/LAT), December 22, 2016, 21:13. INDICATIONS : Right distal tibia/fibula pain with open wound. MEDICAL HISTORY : Cardiovascular disease, Gastroesophageal reflux disease. Hypertension. Renal calculi. Hearing loss,Mi graines. Asthma. Blood clotting disorder. Fatty liver disease. Ovarian cysts. Arthritis, Depression. Anxiety. Sleep apnea. Anemia. SURGICAL HISTORY : Hysterectomy. Carpal tunnel surgery. Kidney stone removal. Left ear surgery, Sinus surgery ENCOUNTER: Initial ACUITY: 7 - 11 months PAIN SCORE: 6/10 LOCATION: Right tibia/fibula FINDINGS: Two view examination of the right tibia demonstrates no evidence of fracture or dislocation. Bony mi neralization is normal. There is a soft tissue laceration involving the curtis. CONCLUSION: No acute fracture or dislocation. Soft tissue laceration involving the curtis. Enio Maza MD on March 11, 2017 at 21:11 Board Certified Radiologist. This report was verified electronically.
[2017-03-11] MEDS ORDERED: SODIUM CHLORID 0.9% 500 ML INJ 500 ML IV ONE (21:15)
[2017-03-11 21:56] VITALS: RESP 16
[2017-03-11 22:10] VITALS: BP 140/73
== END 2017-03-11 22:15 | disposition home or self-care (01) ==
LOC: PHED 18:31
DX: M79.661 Pain in right lower leg (principal); T14.8XXA Other injury of unspecified body region, initial encounter; B95.62 Methicillin resistant Staphylococcus aureus infection as the cause of diseases classified elsewhere; J45.909 Unspecified asthma, uncomplicated; I10 Essential (primary) hypertension; Z16.19 Resistance to other specified beta lactam antibiotics; Z16.11 Resistance to penicillins
CPT/HCPCS: 73590; 86403; 87070; 87186; 96361; 96374; 96375; 99284; J1170; J2405; J7040; 87205

== ENCOUNTER 2017-05-07 15:48 | Observation (INO) | payer OTHER ==
[2017-05-07] VITALS (7 sets, daily range): BP systolic 139–189; BP diastolic 75–100; PULSE 83–102; RESP 16–20; TEMP 96.8–98.4; O2SAT 95–100
[~2017-05-07] VITALS: Ht 162.6 cm; Wt 118.8 kg
[2017-05-07] MEDS ORDERED: PERC10TA27 PO (16:07)
[2017-05-07] MEDS ORDERED: AMLO5TAB2 PO (16:07)
[2017-05-07] MEDS ORDERED: ONDANSETRON HCL 4 MG/2 ML VIAL IVP ONE ×2 (16:45→18:30)
[2017-05-07] MEDS ORDERED: LORazepam 2 MG/ML VIAL IV PUSH ONE (16:45)
[2017-05-07] MEDS ORDERED: SODIUM CHLORIDE 0.9% FLUSH 10 ML FLUSH IVF PRN (16:45)
--- NOTE | 2017-05-07 16:53 | PD ---
HPI Chief Complaint: Anxiety Time Seen by Provider: 16:23 Travel History International Travel<30 days: No Contact w/Intl Traveler<30days: No Traveled to known affect area: No History of Present Illness HPI The patient was seen and examined in the presence of the nurse. This patient complains of anxiety and some chest pain. Duration 3 days. Severity is moderate. Location is low center sternum. It is not exertional she denies cardiac disease. However she is a hypertensive smoker. She is currently getting IV antibiotics through a left arm PICC line for right lower leg ulcer. Symptoms have no alleviating factors. They're likely exacerbated by her anxiety. PFSH Past Medical History Hx Anticoagulant Therapy: No Anemia: Yes Arthritis: Yes Asthma: Yes Anxiety: Yes Depression: Yes Heart Rhythm Problems: No Cancer: No Cardiovascular Problems: Yes (htn on meds) High Cholesterol: No Chest Pain: No Congestive Heart Failure: No COPD: No Cerebrovascular Accident: No Diabetes: No Diminished Hearing: No Endocrine: No Gastrointestinal Disorders: Yes (Fatty liver, GERD) GERD: Yes Genitourinary: Yes Headaches: Yes Hepatitis: No Hiatal Hernia: No Herniated Disk: Yes Hypertension: Yes Immune Disorder: Yes (LUPUS) Implanted Vascular Access Dvce: No Kidney Stones: Yes Medical other: Yes (LUPUS LIKE CON'D ("BLOOD WON'T CLOT"), ANEMIA) Musculoskeletal: Yes Neurologic: Yes Psychiatric: Yes Reproductive: No Respiratory: Yes (asthma) Immunizations Current: Yes Migraines: Yes Seizures: No Sleep Apnea: Yes (BiPAP) Thyroid Disease: No Tetanus Vaccination: Unknown ?: Not Menopausal: Yes : 0 Para: 0 Ovarian Cysts: Yes Dilation and Curettage (D&C): Yes Past Surgical History Abdominal Surgery: No AICD: No Cardiac Surgery: Yes (ABLASION HYSTERECTOMY) Ear Surgery: Yes (Left) Endocrine Surgery: No Eye Surgery: No Genitourinary Surgery: Yes (Kidney stones ) Gynecologic Surgery: Yes (Ablation ) Hysterectomy: Yes Joint Replacement: No Neurologic Surgery: No Oral Surgery: Yes (SINUSTOMY) Pacemaker: No Thoracic Surgery: No Tympanostomy Tube: Yes (LEFT EAR surgery August 2013) Other Surgery: Yes (Sinus, carpal tunnel ) Social History Alcohol Use: No Tobacco Use: Yes (1/2 PPD) Substance Use: No Allergies-Medications (Allergen,Severity, Reaction): Coded Allergies: Sulfa (Sulfonamide Antibiotics) (Verified Allergy, Severe, Wheezing, ) aspirin (Verified Allergy, Severe, WHEEZES, 05/07/17) bismuth subsalicylate (Verified Allergy, Severe, 05/07/17) cannot breath diatrizoate meglumine (Verified Allergy, Severe, Anaphylaxis, 05/07/17) diphenhydramine (Verified Allergy, Severe, Respiratory Failure, 05/07/17) fentanyl (Verified Allergy, Severe, itching, 05/07/17) gadobenic acid (Verified Allergy, Severe, Anaphylaxis, 05/07/17) gadodiamide (Verified Allergy, Severe, Anaphylaxis, 05/07/17) gadoteridol (Verified Allergy, Severe, Anaphylaxis, 05/07/17) ibuprofen (Verified Allergy, Severe, Respiratory Failure, 05/07/17) iodixanol (Verified Allergy, Severe, Anaphylaxis, 05/07/17) iohexol (Verified Allergy, Severe, Anaphylaxis, 05/07/17) ipratropium (Verified Allergy, Severe, THROAT CLOSES, 05/07/17) mesalamine (Verified Allergy, Severe, 05/07/17) "I'M NOT SURE IF I'M ALLERGIC TO THAT" metoclopramide (Verified Allergy, Severe, Anaphylaxis, 05/07/17) PT STATMENT, "I JUST HAD A BAD REACTION TO IT" penicillin G (Verified Allergy, Severe, THROAT CLOSES, 05/07/17) tramadol (Verified Adverse Reaction, Severe, Wheezing, 05/07/17) Uncoded Allergies: MACADAMIA NUTS (Allergy, Severe, Wheezing, 02/10/17) Reported Meds & Prescriptions Reported Meds & Active Scripts Active Reported Percocet (Oxycodone-Acetaminophen) 10-325 mg Tab 1 Tab PO Q6H PRN Amlodipine (Amlodipine Besylate) 5 Mg Tab 5 Mg PO DAILY Zyrtec (Cetirizine HCl) 10 Mg Tablet PO DAILY Prevacid (Lansoprazole) 15 Mg Capdr 15 Mg PO DAILY Flonase Nasal [place] (Fluticasone Nasal [place]) 50 Mcg/Act [place] 50 Mcg EACH NARE BID Ventolin Hfa 18 GM Inh (Albuterol Sulfate) 90 Mcg/Act Aer 1 Puff INH Q4H PRN Spiriva Handihaler (Tiotropium Inh) 18 Mcg Cap 18 Mcg INH BID 1 capsule = 18 mcg Duoneb (Ipratropium-Albuterol Neb) 0.5-2.5 Mg/3 Ml Neb 1 Nebule INH DIRECTED Advair Diskus Inh (Fluticasone-Salmeterol Inh) 500-50 Mcg/Blist Aer 1 Puff INH BID Rinse mouth after use. Xanax (Alprazolam) 1 Mg Tab 1 Mg PO Q6H PRN Singulair (Montelukast Sodium) 10 Mg Tab 10 Mg PO HS Cymbalta DR (Duloxetine HCl) 60 Mg Capdr 120 Mg PO DAILY Review of Systems General / Constitutional: No: Fever Eyes: No: Visual changes HENT: Positive: Headaches Cardiovascular: Positive: Chest Pain or Discomfort Respiratory: No: Shortness of Breath Gastrointestinal: No: Abdominal Pain Genitourinary: No: Dysuria Musculoskeletal: No: Pain Skin: No Rash Neurologic: Positive: Headache, No: Weakness Psychiatric: Positive: Anxiety, No: Depression Endocrine: No: Polydipsia Hematologic/Lymphatic: No: Easy Bruising Physical Exam Narrative GENERAL: Well-nourished, well-developed patient with multiple complaints SKIN: Focused skin assessment reveals no rash and nodules. Skin is Warm and dry. HEAD: Atraumatic. Normocephalic. EYES: Pupils equal and round. No scleral icterus. No injection or drainage. ENT: No nasal bleeding or discharge. Mucous membranes pink and moist. NECK: Trachea midline. No JVD. CARDIOVASCULAR: Regular rate and rhythm. No murmur appreciated. RESPIRATORY: No accessory muscle use. Clear to auscultation. Breath sounds equal bilaterally. GASTROINTESTINAL: Abdomen soft, non-tender, nondistended. Hepatic and splenic margins not palpable. MUSCULOSKELETAL: No obvious deformities. No clubbing. No cyanosis. No edema. Has a right lower leg constrictive dressing in the left arm PICC line. Some degree of sternal tenderness is present. NEUROLOGICAL: Awake and alert. No obvious cranial nerve deficits. Motor grossly within normal limits. Normal speech. PSYCHIATRIC: Anxious mood and affect; insight and judgment seems decreased . Data Data Last Documented VS Vital Signs Date Time Temp Pulse Resp B/P (MAP) Pulse Ox O2 Delivery O2 Flow Rate FiO2 05/07/17 17:25 97 Room Air 05/07/17 15:58 98.4 102 16 189/93 (125) Orders Orders Electrocardiogram (05/07/17 16:35) Basic Metabolic Panel (Bmp) (05/07/17 16:35) Ckmb (Isoenzyme) Profile (05/07/17 16:35) Complete Blood Count With Diff (05/07/17 16:35) Prothrombin Time / Inr (Pt) (05/07/17 16:35) Act Partial Throm Time (Ptt) (05/07/17 16:35) Troponin I (05/07/17 16:35) Chest, Single Ap (05/07/17 16:35) Ecg Monitoring (05/07/17 16:35) Iv Access Insert/Monitor (05/07/17 16:35) Oximetry (05/07/17 16:35) Sodium Chloride 0.9% Flush (Ns Flush) (05/07/17 16:45) Lorazepam Inj (Ativan Inj) (05/07/17 16:45) Ondansetron Inj (Zofran Inj) (05/07/17 16:45) CKMB (05/07/17 16:40) CKMB% (05/07/17 16:40) Acetamin-Hydrocod 325-5 Mg (Narka 5-325 (05/07/17 17:45) Admit Order (Ed Use Only) (05/07/17 18:20) Ondansetron Inj (Zofran Inj) (05/07/17 18:30) Morphine Inj (Morphine Inj) (05/07/17 18:30) Labs Laboratory Tests Test 05/07/17 16:40 White Blood Count 17.2 TH/MM3 Red Blood Count 4.86 MIL/MM3 Hemoglobin 12.4 GM/DL Hematocrit 37.0 % Mean Corpuscular Volume 76.3 FL Mean Corpuscular Hemoglobin 25.5 PG Mean Corpuscular Hemoglobin Concent 33.4 % Red Cell Distribution Width 16.2 % Platelet Count 492 TH/MM3 Mean Platelet Volume 7.8 FL Neutrophils (%) (Auto) 61.2 % Lymphocytes (%) (Auto) 28.7 % Monocytes (%) (Auto) 4.1 % Eosinophils (%) (Auto) 5.1 % Basophils (%) (Auto) 0.9 % Neutrophils # (Auto) 10.5 TH/MM3 Lymphocytes # (Auto) 4.9 TH/MM3 Monocytes # (Auto) 0.7 TH/MM3 Eosinophils # (Auto) 0.9 TH/MM3 Basophils # (Auto) 0.2 TH/MM3 CBC Comment DIFF FINAL Differential Comment Prothrombin Time 10.0 SEC Prothromb Time International Ratio 1.0 RATIO Activated Partial Thromboplast Time 42.0 SEC Blood Urea Nitrogen 7 MG/DL Creatinine 0.58 MG/DL Random Glucose 120 MG/DL Calcium Level 8.6 MG/DL Sodium Level 135 MEQ/L Potassium Level 3.4 MEQ/L Chloride Level 101 MEQ/L Carbon Dioxide Level 26.1 MEQ/L Anion Gap 8 MEQ/L Estimat Glomerular Filtration Rate 115 ML/MIN Total Creatine Kinase 130 U/L Creatine Kinase MB 3.0 NG/ML Troponin I LESS THAN 0.02 NG/ML MDM Medical Decision Making Medical Screen Exam Complete: Yes Emergency Medical Condition: Yes Medical Record Reviewed: Yes Differential Diagnosis Differential diagnosis includes SC, angina, pericarditis, pleurisy, GERD, anxiety. Narrative Course I have reviewed the patient's electronic medical record. IV placed I reviewed the EKG which shows sinus rhythm and no ST elevation I reviewed the chest x-ray which is negative Extended cardiac monitoring shows sinus rhythm without ectopy CBC shows some leukocytosis Metabolic profile is normal CK is normal Troponin is normal Coagulation studies are normal She reports allergy to aspirin I gave her dose of IV Zofran and IV Ativan Patient neurologically intact. She reports migraine headache which is typical for her. She does not take blood thinners. No emergent indication for brain imaging. No thunderclap onset or head injury or fever etc. Is chest pain workup here is negative. However she is a hypertensive smoker. I recommended 23 hour observation in the chest pain center to evaluate for cardiac cause of her symptoms Diagnosis Primary Impression: Chest pain in adult Additional Impression: Anxiety Admitting Information Admitting Physician Requests: Observation Navin Collins MD May 07, 2017 16:53
--- NOTE | 2017-05-07 17:00 | RADRPT ---
EXAM DATE/TIME: 05/07/2017 16:46 [facility] COMPARISON: CHEST SINGLE AP, August 22, 2016, 12:42. INDICATIONS : Chest pain MEDICAL HISTORY : asthma SURGICAL HISTORY : Hysterectomy. ENCOUNTER: Initial ACUITY: 1 day PAIN SCORE: 6/10 LOCATION: Bilateral chest FINDINGS: The lungs are clear without infiltrate, nodule, or mass. There is no appreciable pleural effusion fo r technique. Heart and mediastinum are unremarkable. Left subclavian PICC line is present with tip o verlapping the expected region of the SVC. CONCLUSION: No acute cardiopulmonary disease. Cisco Leary MD on May 07, 2017 at 16:58 Board Certified Radiologist. This report was verified electronically.
[2017-05-07 17:18] LABS: AUTOMATED NEUTROPHIL # 10.5 TH/MM3 (1.8-7.7); BASOPHIL # 0.2 TH/MM3 (0-0.2); BASOPHIL % 0.9 % (0.0-2.0); EOSINOPHIL # 0.9 TH/MM3 (0-0.4); EOSINOPHIL % 5.1 % (0.0-4.0); HEMOGLOBIN 12.4 GM/DL (11.6-15.3); LYMPH % 28.7 % (9.0-44.0); LYMPHOCYTE # 4.9 TH/MM3 (1.0-4.8); MEAN CELL VOLUME 76.3 FL (80.0-100.0); MEAN CORPUSCULAR HEMOGLOBIN 25.5 PG (27.0-34.0); MEAN CORPUSCULAR HGB CONC 33.4 % (32.0-36.0); MEAN PLATELET VOLUME 7.8 FL (7.0-11.0); MONO % 4.1 % (0.0-8.0); MONOCYTE # 0.7 TH/MM3 (0-0.9); NEUT % 61.2 % (16.0-70.0); PLATELET COUNT 492 TH/MM3 (150-450); RED BLOOD COUNT 4.86 MIL/MM3 (4.00-5.30); RED CELL DISTRIBUTION WIDTH 16.2 % (11.6-17.2); WHITE BLOOD COUNT 17.2 TH/MM3 (4.0-11.0)
[2017-05-07 17:21] LABS: CHLORIDE 101 MEQ/L (98-107); SODIUM (NA) 135 MEQ/L (136-145)
[2017-05-07 17:23] LABS: CALCIUM 8.6 MG/DL (8.5-10.1)
[2017-05-07 17:24] LABS: BICARBONATE 26.1 MEQ/L (21.0-32.0); BLOOD UREA NITROGEN 7 MG/DL (7-18); GLUCOSE,RANDOM 120 MG/DL (74-106)
[2017-05-07 17:27] LABS: CREATININE 0.58 MG/DL (0.50-1.00); GLOMERULAR FILTRATION RATE 115 ML/MIN (>89)
[2017-05-07 17:32] LABS: TROPONIN I LESS THAN 0.02 NG/ML (0.02-0.05)
[2017-05-07] MEDS ORDERED: ACETAMINOPHEN/HYDROcodone 325 MG/5 MG TAB PO ONE (17:45)
[2017-05-07] MEDS ORDERED: MORPHINE SULFATE 4 MG/ML INJ IV PUSH PRN (18:30)
[2017-05-07] MEDS ORDERED: NITROGLYCERIN 0.4 MG SL 25 TABS/BTL SL PRN (18:30)
[2017-05-07] MEDS ORDERED: MORPHINE SULFATE 4 MG/ML INJ IV PUSH ONE (18:30)
[2017-05-07] MEDS ORDERED: SODIUM CHLORIDE 0.9% FLUSH 10 ML FLUSH IV FLUSH PRN (18:30)
[2017-05-07] MEDS ORDERED: ACETAMINOPHEN 500 MG CPLT PO PRN (18:30)
[2017-05-07] MEDS ORDERED: ONDANSETRON HCL 4 MG/2 ML VIAL IV PUSH PRN (18:30)
[2017-05-07] MEDS ORDERED: ALBUTEROL SULFATE 90 MCG/ACT HFA 8 GM INHALER INH PRN (18:30)
[2017-05-07] MEDS ORDERED: ALPRAZolam 0.5 MG TAB PO PRN (18:45)
[2017-05-07] MEDS: SODIUM CHLOR 0.9% 1000 ML INJ 1,000 ML IV SCH (18:49)
[2017-05-07] MEDS ORDERED: POTASSIUM CHLORIDE 10 MEQ CONTROLLED RELEASE TAB PO ONE (19:00)
[2017-05-07] MEDS: BUDESONIDE-FORMOTEROL 160/4.5 MCG INHALER INH SCH (20:05)
[2017-05-07] MEDS: SODIUM CHLORIDE 0.9% FLUSH 10 ML FLUSH IV FLUSH SCH (20:05)
[2017-05-07] MEDS: HEPARIN SODIUM - SQ 10,000 UNITS/ML VIAL SQ SCH (20:20)
[2017-05-07 20:24] LABS: TROPONIN I LESS THAN 0.02 NG/ML (0.02-0.05)
[2017-05-07] MEDS ORDERED: MONTELUKAST SODIUM 10 MG TAB PO SCH (21:00)
[2017-05-07] MEDS ORDERED: HYDROmorphone HCL PF 2 MG/ML VIAL IV PUSH ONE (22:00)
[2017-05-07 23:11] LABS: TROPONIN I LESS THAN 0.02 NG/ML (0.02-0.05)
[2017-05-08] VITALS: BP 135/79; PULSE 88; RESP 18; TEMP 97.6; O2SAT 94
[2017-05-08] MEDS ORDERED: RESP: ALBUTEROL 2.5 MG/IPRATROPIUM 0.5 MG NEB (PRN) NEB (00:15)
[2017-05-08] MEDS: SODIUM CHLOR 0.9% 1000 ML INJ 1,000 ML IV SCH (04:26)
[2017-05-08] MEDS: HEPARIN SODIUM - SQ 10,000 UNITS/ML VIAL SQ SCH (06:13)
[2017-05-08] MEDS ORDERED: HYDROmorphone HCL PF 2 MG/ML VIAL IV PUSH ONE (06:15)
[2017-05-08 08:00] VITALS: BP_SYST 154; BP_SYST 183; BP_DIAS 83; BP_DIAS 98; PULSE 87; RESP 14; TEMP 98.3; O2SAT 92
[2017-05-08] MEDS ORDERED: oxyCODONE/ACETAMINOPHEN 10 MG/325 MG TAB PO PRN (08:00)
--- NOTE | 2017-05-08 08:03 | HHI.HP ---
HPI Service [facility] Primary [facility] Physician Damaso Archuleta Do, MD Admission Diagnosis chest pain Diagnoses: (1) Chest pain in adult Diagnosis: Principal Chief Complaint: chest pain Travel History International Travel<30 Days: No Contact w/Intl Traveler <30 Da: No Traveled to Known Affected Are: No History of Present Illness 42-year-old female with known history of hypertension, anxiety, obstructive sleep apnea, chronic tobacco use, borderline diabetes, chronic pain , migraine cephalgia who presented to the hospital because of intermittent chest discomfort. Patient indicates that over the last 2 days she has been experiencing intermittent chest discomfort which she describes as a dull sensation in her mid sternum to the 5/10 on a pain scale at for approximately 15 minutes. She states that she has not had any nausea, vomiting, diaphoresis, shortness of breath, dyspnea, radiation to neck, back, shoulder, arm. She states that she does have anxiety and panic attacks in which she is under increased stress lately. She contributes her discomfort to her anxiety and panic attacks. She does have a migraine at this time which she does suffer from on a intermittent basis. She is being treated for right lower extremity cellulitis and wound by Dr. Keene with outpatient IV which she is getting daptomycin on a daily basis. Patient is currently asymptomatic. Patient was placed in observation chest pain center for evaluation of her chest discomfort Review of Systems Cardiovascular: COMPLAINS OF: Chest pain Neurologic: COMPLAINS OF: Headache Psychiatric: COMPLAINS OF: Anxiety Except as stated in HPI: all other systems reviewed are Neg Past Family Social History Past Medical History Hypertension Borderline diabetes Obstructive sleep apnea Anxiety/panic attacks Chronic pain Migraine cephalgia Chronic tobacco use Gastroesophageal reflux Past Surgical History Hysterectomy Carpal tunnel surgery Multiple sinus surgeries Left ear surgery Reported Medications Reported Meds & Active Scripts Active Reported Percocet (Oxycodone-Acetaminophen) 10-325 mg Tab 1 Tab PO Q6H PRN Amlodipine (Amlodipine Besylate) 5 Mg Tab 5 Mg PO DAILY Zyrtec (Cetirizine HCl) 10 Mg Tablet PO DAILY Prevacid (Lansoprazole) 15 Mg Capdr 15 Mg PO DAILY Flonase Nasal [place] (Fluticasone Nasal [place]) 50 Mcg/Act [place] 50 Mcg EACH NARE BID Ventolin Hfa 18 GM Inh (Albuterol Sulfate) 90 Mcg/Act Aer 1 Puff INH Q4H PRN Spiriva Handihaler (Tiotropium Inh) 18 Mcg Cap 18 Mcg INH BID 1 capsule = 18 mcg Duoneb (Ipratropium-Albuterol Neb) 0.5-2.5 Mg/3 Ml Neb 1 Nebule INH DIRECTED Advair Diskus Inh (Fluticasone-Salmeterol Inh) 500-50 Mcg/Blist Aer 1 Puff INH BID Rinse mouth after use. Xanax (Alprazolam) 1 Mg Tab 1 Mg PO Q6H PRN Singulair (Montelukast Sodium) 10 Mg Tab 10 Mg PO HS Cymbalta DR (Duloxetine HCl) 60 Mg Capdr 120 Mg PO DAILY Allergies: Coded Allergies: Sulfa (Sulfonamide Antibiotics) (Verified Allergy, Severe, Wheezing, ) aspirin (Verified Allergy, Severe, WHEEZES, 05/07/17) bismuth subsalicylate (Verified Allergy, Severe, 05/07/17) cannot breath diatrizoate meglumine (Verified Allergy, Severe, Anaphylaxis, 05/07/17) diphenhydramine (Verified Allergy, Severe, Respiratory Failure, 05/07/17) fentanyl (Verified Allergy, Severe, itching, 05/07/17) gadobenic acid (Verified Allergy, Severe, Anaphylaxis, 05/07/17) gadodiamide (Verified Allergy, Severe, Anaphylaxis, 05/07/17) gadoteridol (Verified Allergy, Severe, Anaphylaxis, 05/07/17) ibuprofen (Verified Allergy, Severe, Respiratory Failure, 05/07/17) iodixanol (Verified Allergy, Severe, Anaphylaxis, 05/07/17) iohexol (Verified Allergy, Severe, Anaphylaxis, 05/07/17) mesalamine (Verified Allergy, Severe, 05/07/17) "I'M NOT SURE IF I'M ALLERGIC TO THAT" metoclopramide (Verified Allergy, Severe, Anaphylaxis, 05/07/17) PT STATMENT, "I JUST HAD A BAD REACTION TO IT" penicillin G (Verified Allergy, Severe, THROAT CLOSES, 05/07/17) tramadol (Verified Adverse Reaction, Severe, Wheezing, 05/07/17) Uncoded Allergies: MACADAMIA NUTS (Allergy, Severe, Wheezing, 02/10/17) Family History Reviewed is significant for father with diabetes, mother with good health Social History Patient smokes a half pack a cigarettes a week since she was 21 years old. Denies any alcohol or illicit drugs Physical Exam Vital Signs Vital Signs Date Time Temp Pulse Resp B/P (MAP) Pulse Ox O2 Delivery O2 Flow Rate FiO2 05/08/17 00:00 97.6 88 18 135/79 (97) 94 05/07/17 23:00 92 05/07/17 20:02 97 21 05/07/17 20:00 96.8 88 18 139/75 (96) 95 05/07/17 19:36 05/07/17 19:23 83 18 166/84 (111) Room Air 05/07/17 18:36 92 20 164/100 (121) 95 Room Air 05/07/17 18:36 97 21 05/07/17 17:25 97 Room Air 05/07/17 15:58 98.4 102 16 189/93 (125) 100 Physical Exam GENERAL: Well-developed, obese with BMI 45, in no acute distress. alert and orientated HEENT: Head is normocephalic without any lesions or masses noted. Facial features are symmetric. Eyes: Pupils equal round reactive to light. Extraocular muscles are intact. Conjunctivae were clear. Oropharyngeal: Pharynx without any erythema edema. Tongue is midline without deviation. Buccal mucosa is moist without any masses or lesions NECK: Supple without any masses. Trachea midline no deviation. No JVD, no bruits are appreciated CARDIAC: Regular rhythm, regular rate. S1/S2 are heard. No murmurs gallops or rubs. LUNGS: Clear to auscultation bilaterally. No wheeze, rhonchi or rales. No use of accessory muscles on inspiration or expiration. ABDOMEN: Soft, nontender. Nondistended. Bowel sounds heard in all 4 quadrants. No organomegaly or masses. Negative rebound, negative guarding EXTREMITIES: No edema, pulses are equal bilaterally. No cyanosis or clubbing. Right lower extremity does have bandage NEUROLOGY: Mood and affect appear appropriate. Cranial nerves II through XII grossly intact. Muscle strength 5/5 in upper and lower extremities bilaterally. Deep tendon reflexes are 2+ in upper and lower extremities bilaterally. Laboratory Laboratory Tests Test 05/07/17 16:40 05/07/17 19:55 05/07/17 22:36 White Blood Count 17.2 Red Blood Count 4.86 Hemoglobin 12.4 Hematocrit 37.0 Mean Corpuscular Volume 76.3 Mean Corpuscular Hemoglobin 25.5 Mean Corpuscular Hemoglobin Concent 33.4 Red Cell Distribution Width 16.2 Platelet Count 492 Mean Platelet Volume 7.8 Neutrophils (%) (Auto) 61.2 Lymphocytes (%) (Auto) 28.7 Monocytes (%) (Auto) 4.1 Eosinophils (%) (Auto) 5.1 Basophils (%) (Auto) 0.9 Neutrophils # (Auto) 10.5 Lymphocytes # (Auto) 4.9 Monocytes # (Auto) 0.7 Eosinophils # (Auto) 0.9 Basophils # (Auto) 0.2 CBC Comment DIFF FINAL Differential Comment Prothrombin Time 10.0 Prothromb Time International Ratio 1.0 Activated Partial Thromboplast Time 42.0 D-Dimer Quantitative (PE/DVT) 0.45 Blood Urea Nitrogen 7 Creatinine 0.58 Random Glucose 120 Calcium Level 8.6 Sodium Level 135 Potassium Level 3.4 Chloride Level 101 Carbon Dioxide Level 26.1 Anion Gap 8 Estimat Glomerular Filtration Rate 115 Total Creatine Kinase 130 119 119 Creatine Kinase MB 3.0 2.7 2.7 Troponin I LESS THAN 0.02 LESS THAN 0.02 LESS THAN 0.02 Result Diagram: 05/07/17 1640 05/07/17 1640 Imaging Last Impressions Chest X-Ray 05/07/17 1635 Signed Impressions: Service Date/Time: Sunday, May 07, 2017 16:46 - CONCLUSION: No acute cardiopulmonary disease. KMD Dorothy [place] VTE Risk Assessment Caprini VTE Risk Assessment: No/Low Risk (score <= 1) Caprini Risk Assessment Model Point Value = 1 Point Value = 2 Point Value = 3 Point Value = 5 Age 41-60 Minor surgery BMI > 25 kg/m2 Swollen legs Varicose veins or History of unexplained or recurrent spontaneous Oral contraceptives or hormone replacement Sepsis (< 1 month) Serious lung disease, including pneumonia (< 1 month) Abnormal pulmonary function Acute myocardial infarction Congestive heart failure (< 1 month) History of inflammatory bowel disease Medical patient at bed rest Age 61-74 Arthroscopic surgery Major open surgery (> 45 min) Laparoscopic surgery (> 45 min) Malignancy Confined to bed (> 72 hours) Immobilizing plaster cast Central venous access Age >= 75 History of VTE Family history of VTE Factor V Leiden Prothrombin [id number] Lupus anticoagulant Anticardiolipin antibodies Elevated serum homocysteine Heparin-induced thrombocytopenia Other congenital or acquired thrombophilia Stroke (< 1 month) Elective arthroplasty Hip, pelvis, or leg fracture Acute spinal cord injury (< 1 month) Prophylaxis Regimen Total Risk Factor Score Risk Level Prophylaxis Regimen 0-1 Low Early ambulation 2 Moderate Order ONE of the following: *Sequential Compression Device (SCD) *Heparin 5000 units SQ BID 3-4 Higher Order ONE of the following medications: *Heparin 5000 units SQ TID *Enoxaparin/Lovenox 40 mg SQ daily (WT < 150 kg, CrCl > 30 mL/min) *Enoxaparin/Lovenox 30 mg SQ daily (WT < 150 kg, CrCl > 10-29 mL/min) *Enoxaparin/Lovenox 30 mg SQ BID (WT < 150 kg, CrCl > 30 mL/min) AND/OR *Sequential Compression Device (SCD) 5 or more Highest Order ONE of the following medications: *Heparin 5000 units SQ TID (Preferred with Epidurals) *Enoxaparin/Lovenox 40 mg SQ daily (WT < 150 kg, CrCl > 30 mL/min) *Enoxaparin/Lovenox 30 mg SQ daily (WT < 150 kg, CrCl > 10-29 mL/min) *Enoxaparin/Lovenox 30 mg SQ BID (WT < 150 kg, CrCl > 30 mL/min) AND *Sequential Compression Device (SCD) Assessment and Plan Assessment and Plan Chest pain, atypical Patient with risk factors to include body habitus, tobacco use, hypertension Patient has been ruled out for any acute coronary event with serial cardiac enzymes that are negative EKGs reviewed by myself does show sinus rhythm, early right bundle branch block without any changes Myocardial perfusion study was performed that did not indicate any acute reversible ischemia Patient instructed follow-up with her primary doctor for further evaluation and management Right lower extremity MRSA infection Discuss with Dr. Keene, patient is receiving daptomycin IV daily We'll give daptomycin 500 mg IV today while patient is in the hospital Patient counseled to continue her outpatient antibiotics if she is discharged Anxiety with panic attacks Home medication has been continued Hypertension home medications have been continued Chronic pain Home medications have been continued DVT prevention Low risk, early ambulation Discharge disposition Discharge home in stable condition Activity: Ad china. Diet: Healthy heart diet Medications per medication reconciliation Follow-up primary medical doctor one week Navin Montejo May 08, 2017 08:02
[2017-05-08 08:17] VITALS: O2SAT 95
[2017-05-08 08:18] LABS: AUTOMATED NEUTROPHIL # 9.5 TH/MM3 (1.8-7.7); BASOPHIL # 0.2 TH/MM3 (0-0.2); BASOPHIL % 1.1 % (0.0-2.0); EOSINOPHIL # 0.8 TH/MM3 (0-0.4); EOSINOPHIL % 5.6 % (0.0-4.0); HEMATOCRIT 37.5 % (35.0-46.0); LYMPH % 20.7 % (9.0-44.0); LYMPHOCYTE # 2.9 TH/MM3 (1.0-4.8); MEAN CELL VOLUME 76.6 FL (80.0-100.0); MEAN CORPUSCULAR HEMOGLOBIN 24.4 PG (27.0-34.0); MEAN CORPUSCULAR HGB CONC 31.9 % (32.0-36.0); MEAN PLATELET VOLUME 7.1 FL (7.0-11.0); MONO % 4.8 % (0.0-8.0); MONOCYTE # 0.7 TH/MM3 (0-0.9); NEUT % 67.8 % (16.0-70.0); PLATELET COUNT 487 TH/MM3 (150-450); RED CELL DISTRIBUTION WIDTH 15.7 % (11.6-17.2); WHITE BLOOD COUNT 14.1 TH/MM3 (4.0-11.0)
[2017-05-08 08:30] LABS: CALCIUM 8.7 MG/DL (8.5-10.1)
[2017-05-08 08:31] LABS: BICARBONATE 27.1 MEQ/L (21.0-32.0)
[2017-05-08 08:34] LABS: CREATININE 0.6 MG/DL (0.50-1.00)
[2017-05-08] MEDS: SODIUM CHLORIDE 0.9% FLUSH 10 ML FLUSH IV FLUSH SCH (08:45)
[2017-05-08] MEDS: BUDESONIDE-FORMOTEROL 160/4.5 MCG INHALER INH SCH (09:00)
[2017-05-08] MEDS ORDERED: amLODIPine BESYLATE 5 MG TAB PO SCH (09:00)
[2017-05-08] MEDS ORDERED: PANTOPRAZOLE SOD 20 MG DELAYED RELEASE TAB PO SCH (09:00)
[2017-05-08] MEDS ORDERED: DULoxetine HCl DR 60 MG CAP PO SCH (09:00)
[2017-05-08] MEDS ORDERED: TIOTROPIUM BROMIDE 18 MCG INH INH SCH (09:00)
[2017-05-08] MEDS ORDERED: DAPTOmycin INJ 500 MG in SODIUM CHLORIDE 0.9% INJ 100 ML IV ONE (11:00)
[2017-05-08] MEDS ORDERED: REGADENOSON INJ 0.4 MG/5 ML SYR IV ONE (11:56)
--- NOTE | 2017-05-08 12:47 | EKG ---
Date Performed: 05/07/2017 Time Performed: 16:54:34 PTAGE: 42 years EKG: Sinus rhythm POSSIBLE RIGHT VENTRICULAR CONDUCTION DELAY BORDERLINE ECG Since PREVIOUS TRACING , no significant change noted PREVIOUS TRACIN08/24/2016 22.38 DOCTOR: Que Moseley Interpretating Date/Time 05/08/2017 12:46:04
--- NOTE | 2017-05-08 12:47 | EKG ---
Date Performed: 05/07/2017 Time Performed: 22:32:24 PTAGE: 42 years EKG: Sinus rhythm INCOMPLETE RIGHT BUNDLE BRANCH BLOCK BORDERLINE ECG Since PREVIOUS TRACING , no significant change noted PREVIOUS TRACIN05/07/2017 19.55 DOCTOR: Que Moseley Interpretating Date/Time 05/08/2017 12:46:27
--- NOTE | 2017-05-08 12:47 | EKG ---
Date Performed: 05/07/2017 Time Performed: 19:55:59 PTAGE: 42 years EKG: Sinus rhythm INCOMPLETE RIGHT BUNDLE BRANCH BLOCK BORDERLINE ECG Since PREVIOUS TRACING , no significant change noted PREVIOUS TRACIN05/07/2017 16.54 DOCTOR: Que Moseley Interpretating Date/Time 05/08/2017 12:46:17
--- NOTE | 2017-05-08 12:53 | RADRPT ---
EXAM DATE/TIME: 05/08/2017 10:35 [place] COMPARISON: No previous studies available for comparison. INDICATIONS : Chest pain for 3 days. Angina. DOSE: 35 mCi Tc99m Myoview at stress. 11 mCi Tc99m Myoview at rest. 0.4 mg Lexiscan STRESS SYMPTOMS: Chest pain, shortness of breath. EJECTION FRACTION: 46% MEDICAL HISTORY : Hypertension. Asthma and smoker. SURGICAL HISTORY : Hysterectomy. ENCOUNTER: Initial ACUITY: 3 days PAIN SCALE: 4/10 LOCATION: Substernal chest TECHNIQUE: The patient underwent pharmacologic stress with infusion of prescribed dose. Continuous ECG tracing was monitored during stress. Gated SPECT imaging was performed after stress and conventional SPECT i maging was performed at rest. The examination was performed on a SPECT/CT scanner, both attenuation and non-corrected datasets were reviewed. FINDINGS: DISTRIBUTION: The maximum perfused segment at stress is in the anterolateral wall. PERFUSION STUDY: No reversible perfusion defects. There are matched areas of decreased perfusion within the inferolate ral wall, septum and at the apex. GATED STUDY: Mild global hypokinesia. CONCLUSION: 1. Matched defects without reversibility. 2. Ejection fraction 46%. RISK CATEGORY: Intermediate (1-3% Annual Mortality Rate) Shawn Soler MD on May 08, 2017 at 12:48 Board Certified Radiologist. This report was verified electronically.
--- NOTE | 2017-05-08 12:59 | HHI.DCPOC ---
Discharge Care Plan Diagnosis: (1) Chest pain in adult Goals to Promote Your Health * To prevent worsening of your condition and complications * To maintain your health at the optimal level Directions to Meet Your Goals Take your medications as prescribed Follow your dietary instruction Follow activity as directed Keep your appointments as scheduled Take your immunizations and boosters as scheduled If your symptoms worsen call your PCP, if no PCP go to Urgent Care Center or Emergency Room Smoking is Dangerous to Your Health. Avoid second hand smoke Call the 24-hour hour crisis hotline for domestic abuse at Navin Montejo May 08, 2017 12:59
[2017-05-08 13:00] VITALS: BP 138/88; TEMP 98
--- NOTE | 2017-05-08 14:13 | TR ---
Date Performed: 05/08/2017 Time Performed: 11:34:28 DOCTOR: Que Moseley DRUG LIST: CLINICAL HISTORY: ANGINA REASON FOR TEST: REASON FOR ENDING: OBSERVATION: CONCLUSION: Lexiscan stress test was performed under standard four minute protocol. Radionuclid e was injected one minute prior to ending the test. No electrocardiographic abormalities were present to suggest ischemia. Nuclear imaging and interpretation are pending. COMMENTS:
== END 2017-05-08 14:20 | disposition home or self-care (01) ==
LOC: PHED 15:48 → PHEDA 18:22 → PH3A 19:30
PROVIDERS: ADMIT Hospitalist; ATTEND Hospitalist
DX: R07.89 Other chest pain (principal); R06.02 Shortness of breath; L03.115 Cellulitis of right lower limb; B95.62 Methicillin resistant Staphylococcus aureus infection as the cause of diseases classified elsewhere; I10 Essential (primary) hypertension; I45.10 Unspecified right bundle-branch block; I20.9 Angina pectoris, unspecified; J45.909 Unspecified asthma, uncomplicated; G47.33 Obstructive sleep apnea (adult) (pediatric); G43.909 Migraine, unspecified, not intractable, without status migrainosus; R73.03 Prediabetes; K21.9 Gastro-esophageal reflux disease without esophagitis; G89.29 Other chronic pain; F41.0 Panic disorder [episodic paroxysmal anxiety]; F17.210 Nicotine dependence, cigarettes, uncomplicated; Z79.899 Other long term (current) drug therapy; Z88.2 Allergy status to sulfonamides; Z88.6 Allergy status to analgesic agent; Z88.8 Allergy status to other drugs, medicaments and biological substances; Z88.5 Allergy status to narcotic agent
CPT/HCPCS: 71045; 78452; 80048; 82550; 82552; 84484; 85025; 85379; 85610; 85730; 93005; 93017; 94664; 96361; 96372; 96374; 96375; 96376; 99285; A9502; G0378; J1170; J1644; J2060; J2270; J2405; J2785; J7030

== ENCOUNTER 2017-06-26 21:22 | Emergency (ER) | payer OTHER ==
[~2017-06-26] VITALS: Ht 162.6 cm; Wt 125.6 kg
[~2017-06-26 21:22] MED LIST changes: -AMLO10 PO; +AMLO5TAB2 PO; -LEVA750T9 PO; +PERC10TA27 PO; -PERC7.5T13 PO; -PRED20 PO; -VITA1000 PO
[2017-06-26 21:25] VITALS: BP 193/99; PULSE 119; RESP 22; TEMP 98.8; O2SAT 96
[2017-06-26] MEDS ORDERED: ONDANSETRON HCL 4 MG/2 ML VIAL IV PUSH ONE (22:00)
[2017-06-26] MEDS ORDERED: SODIUM CHLOR 0.9% 1000 ML INJ 1,000 ML IV ONE (22:00)
[2017-06-26] MEDS ORDERED: HYDROmorphone HCL PF 1 MG/ML VIAL IV PUSH ONE (22:00)
--- NOTE | 2017-06-26 22:00 | PD ---
HPI Chief Complaint: Pain: Acute or Chronic Time Seen by Provider: 21:39 Travel History International Travel<30 days: No Contact w/Intl Traveler<30days: No Traveled to known affect area: No History of Present Illness HPI The patient is a 42-year-old female who presents to the emergency department for right leg pain. The patient has a history of a chronic ulcer on the mid right anterior tibia/fibula. The patient had debridement on Tuesday by her wound care physician, Dr. Snyder. The patient had increasing pain since debridement, was unable to get a hold of Dr. Snyder, therefore, comes emergency department for pain relief. The patient thinks she has a chronic ulcer secondary to lupus. They have been dressing it and debriding it, she denies any drainage from the area or surrounding erythema. She denies any associated fever. Symptoms are moderate, exacerbated after debridement. PFSH Past Medical History Hx Anticoagulant Therapy: No Anemia: Yes Arthritis: Yes Asthma: Yes Anxiety: Yes Depression: Yes Heart Rhythm Problems: No Cancer: No Cardiovascular Problems: Yes (htn on meds) High Cholesterol: No Chest Pain: No Congestive Heart Failure: No COPD: No Cerebrovascular Accident: No Diabetes: No Diminished Hearing: No Endocrine: No Gastrointestinal Disorders: Yes (Fatty liver, GERD) GERD: Yes Genitourinary: Yes Headaches: Yes Hepatitis: No Hiatal Hernia: No Herniated Disk: Yes Hypertension: Yes Immune Disorder: Yes (LUPUS) Implanted Vascular Access Dvce: No Kidney Stones: Yes Medical other: Yes (LUPUS LIKE CON'D ("BLOOD WON'T CLOT"), ANEMIA) Musculoskeletal: Yes Neurologic: Yes Psychiatric: Yes Reproductive: No Respiratory: Yes (asthma) Immunizations Current: Yes Migraines: Yes Seizures: No Sleep Apnea: Yes (BiPAP) Thyroid Disease: No Tetanus Vaccination: Unknown Influenza Vaccination: No ?: Not Menopausal: Yes : 0 Para: 0 Ovarian Cysts: Yes Dilation and Curettage (D&C): Yes Past Surgical History Abdominal Surgery: No AICD: No Cardiac Surgery: Yes (ABLASION HYSTERECTOMY) Ear Surgery: Yes (Left) Endocrine Surgery: No Eye Surgery: No Genitourinary Surgery: Yes (Kidney stones ) Gynecologic Surgery: Yes (Ablation ) Hysterectomy: Yes Joint Replacement: No Neurologic Surgery: No Oral Surgery: Yes (SINUSTOMY) Pacemaker: No Thoracic Surgery: No Tympanostomy Tube: Yes (LEFT EAR surgery August 2013) Other Surgery: Yes (Sinus, carpal tunnel ) Social History Alcohol Use: No Tobacco Use: Yes (/2 PPD) Substance Use: No Allergies-Medications (Allergen,Severity, Reaction): Coded Allergies: Sulfa (Sulfonamide Antibiotics) (Verified Allergy, Severe, Wheezing, ) aspirin (Verified Allergy, Severe, WHEEZES, 06/26/17) bismuth subsalicylate (Verified Allergy, Severe, 06/26/17) cannot breath diatrizoate meglumine (Verified Allergy, Severe, Anaphylaxis, 06/26/17) diphenhydramine (Verified Allergy, Severe, Respiratory Failure, 06/26/17) fentanyl (Verified Allergy, Severe, itching, 06/26/17) gadobenic acid (Verified Allergy, Severe, Anaphylaxis, 06/26/17) gadodiamide (Verified Allergy, Severe, Anaphylaxis, 06/26/17) gadoteridol (Verified Allergy, Severe, Anaphylaxis, 06/26/17) ibuprofen (Verified Allergy, Severe, Respiratory Failure, 06/26/17) iodixanol (Verified Allergy, Severe, Anaphylaxis, 06/26/17) iohexol (Verified Allergy, Severe, Anaphylaxis, 06/26/17) mesalamine (Verified Allergy, Severe, 06/26/17) "I'M NOT SURE IF I'M ALLERGIC TO THAT" metoclopramide (Verified Allergy, Severe, Anaphylaxis, 06/26/17) PT STATMENT, "I JUST HAD A BAD REACTION TO IT" penicillin G (Verified Allergy, Severe, THROAT CLOSES, 06/26/17) tramadol (Verified Adverse Reaction, Severe, Wheezing, 06/26/17) Uncoded Allergies: MACADAMIA NUTS (Allergy, Severe, Wheezing, 02/10/17) Reported Meds & Prescriptions Reported Meds & Active Scripts Active Reported Percocet (Oxycodone-Acetaminophen) 10-325 mg Tab 1 Tab PO Q6H PRN Amlodipine (Amlodipine Besylate) 5 Mg Tab 5 Mg PO DAILY Zyrtec (Cetirizine HCl) 10 Mg Tablet PO DAILY Prevacid (Lansoprazole) 15 Mg Capdr 15 Mg PO DAILY Flonase Nasal [place] (Fluticasone Nasal [place]) 50 Mcg/Act [place] 50 Mcg EACH NARE BID Ventolin Hfa 18 GM Inh (Albuterol Sulfate) 90 Mcg/Act Aer 1 Puff INH Q4H PRN Spiriva Handihaler (Tiotropium Inh) 18 Mcg Cap 18 Mcg INH BID 1 capsule = 18 mcg Duoneb (Ipratropium-Albuterol Neb) 0.5-2.5 Mg/3 Ml Neb 1 Nebule INH DIRECTED Advair Diskus Inh (Fluticasone-Salmeterol Inh) 500-50 Mcg/Blist Aer 1 Puff INH BID Rinse mouth after use. Xanax (Alprazolam) 1 Mg Tab 1 Mg PO Q6H PRN Singulair (Montelukast Sodium) 10 Mg Tab 10 Mg PO HS Cymbalta DR (Duloxetine HCl) 60 Mg Capdr 120 Mg PO DAILY Review of Systems Except as stated in HPI: all other systems reviewed are Neg General / Constitutional: No: Fever HENT: No: Lightheadedness Gastrointestinal: No: Nausea, Vomiting Musculoskeletal: Positive: Pain Neurologic: No: Paresthesia, Sensory Disturbance Physical Exam Narrative GENERAL: Awake, alert, nontoxic-appearing 42-year-old female who appears her stated age and is in no acute respiratory distress. SKIN: Focused skin assessment warm/dry. HEAD: Atraumatic. Normocephalic. EYES: No injection or drainage MUSCULOSKELETAL: The patient's dressing was removed. The patient does have a somewhat circular ulceration of the anterior aspect of the right mid tibia- fibula that is well demarcated. There is no surrounding erythema. No drainage from the affected area. Positive right dorsalis pedal pulse. NEUROLOGICAL: Awake and alert. No obvious cranial nerve deficits. Motor grossly within normal limits. Normal speech. PSYCHIATRIC: Appropriate mood and affect; insight and judgment normal. Data Data Last Documented VS Vital Signs Date Time Temp Pulse Resp B/P (MAP) Pulse Ox O2 Delivery O2 Flow Rate FiO2 06/26/17 22:44 16 06/26/17 22:44 98.2 103 142/72 (95) 96 Room Air Orders Orders Ondansetron Inj (Zofran Inj) (06/26/17 22:00) Sodium Chlor 0.9% 1000 Ml Inj (Ns 1000 M (06/26/17 22:00) Hydromorphone Pf Inj (Dilaudid Pf Inj) (06/26/17 22:15) Hydromorphone Pf Inj (Dilaudid Pf Inj) (06/26/17 22:45) [facility] Medical Decision Making Medical Screen Exam Complete: Yes Emergency Medical Condition: Yes Medical Record Reviewed: Yes Differential Diagnosis Differential diagnosis includes chronic ulcer, right leg pain, cellulitis, abscess, chronic pain. Narrative Course IV was established and the patient was administered Dilaudid, Zofran, and IV fluids. The patient was reevaluated at 10:45 PM, her pain had improved, however , was still at 11/10. Therefore, patient was administered a second dose of pain medication. She is advised she will need a ride home. The patient states she does not need a prescription for pain medication, she has pain medications at home. She is advised to follow-up with Dr. Snyder this week. Return if symptoms worsen or progress. Diagnosis Primary Impression: Right leg pain Additional Impression: Chronic ulcer of right leg Qualified Codes: L97.919 - Non-pressure chronic ulcer of unspecified part of right lower leg with unspecified severity Patient Instructions: General Instructions, Narcotic given in the ED Additional Instructions: Follow-up with your wound care physician. Ride home as he received narcotics in the emergency department. Return if symptoms worsen or progress. Med/Other Pt SpecificInfo: No Change to Meds Disposition: 01 DISCHARGE HOME Condition: Stable Tramaine Neal MD Jun 26, 2017 22:00
[2017-06-26] MEDS ORDERED: HYDROmorphone HCL PF 2 MG/ML VIAL IV PUSH ONE ×2 (22:15→22:45)
[2017-06-26 22:44] VITALS: BP 142/72; PULSE 103; RESP 16; TEMP 98.2; O2SAT 96
[2017-06-26 23:43] VITALS: RESP 16
== END 2017-06-26 23:45 | disposition home or self-care (01) ==
LOC: PHED 21:22
DX: M79.604 Pain in right leg (principal); L97.919 Non-pressure chronic ulcer of unspecified part of right lower leg with unspecified severity; D64.9 Anemia, unspecified; M19.90 Unspecified osteoarthritis, unspecified site; J45.909 Unspecified asthma, uncomplicated; F41.9 Anxiety disorder, unspecified; I10 Essential (primary) hypertension; K76.0 Fatty (change of) liver, not elsewhere classified; K21.9 Gastro-esophageal reflux disease without esophagitis
CPT/HCPCS: 96361; 96374; 96375; 96376; 99284; J1170; J2405; J7030

== ENCOUNTER 2017-07-13 22:14 | Emergency (ER) | payer OTHER ==
[~2017-07-13] VITALS: Ht 162.6 cm; Wt 120.2 kg
[2017-07-13 22:17] VITALS: BP 187/88; PULSE 111; RESP 20; TEMP 97.9; O2SAT 98
--- NOTE | 2017-07-13 22:34 | PD ---
HPI . Knee injury Chief Complaint: Fall Time Seen by Provider: 22:21 Travel History International Travel<30 days: No Contact w/Intl Traveler<30days: No Traveled to known affect area: No History of Present Illness HPI This patient presents with chief complaint of an injury to her right knee. She states that she was in court today and [facility] and fainted. She feels like she must have struck her right knee. She comes in now complaining with pain in the knee which she rates 9/10. The pain has been continuous since 1 PM. The pain is exacerbated by movement and palpation. Pain is unrelieved by ice. The patient reports that she was given a shot of morphine at [facility]. She states that that did not help the pain. She states that she was evaluated for the syncopal event at [facility]. PFSH Past Medical History Hx Anticoagulant Therapy: Yes Anemia: Yes Arthritis: Yes Asthma: Yes Anxiety: Yes Depression: Yes Heart Rhythm Problems: No Cancer: No Cardiovascular Problems: Yes High Cholesterol: No Chest Pain: No Congestive Heart Failure: No COPD: No Cerebrovascular Accident: No Diabetes: No Diminished Hearing: No Endocrine: No Gastrointestinal Disorders: Yes (Fatty liver, GERD) GERD: Yes Genitourinary: Yes Headaches: Yes Hepatitis: No Hiatal Hernia: No Herniated Disk: Yes Hypertension: Yes Immune Disorder: Yes (LUPUS) Implanted Vascular Access Dvce: No Kidney Stones: Yes Musculoskeletal: Yes Neurologic: Yes Psychiatric: Yes Reproductive: No Respiratory: Yes Immunizations Current: Yes Migraines: Yes Seizures: No Sleep Apnea: Yes (BiPAP) Thyroid Disease: No ?: Not Menopausal: Yes : 0 Para: 0 Ovarian Cysts: Yes Dilation and Curettage (D&C): Yes Past Surgical History Abdominal Surgery: No AICD: No Cardiac Surgery: Yes (ABLASION HYSTERECTOMY) Ear Surgery: Yes (Left) Endocrine Surgery: No Eye Surgery: No Genitourinary Surgery: Yes (Kidney stones ) Gynecologic Surgery: Yes (Ablation ) Hysterectomy: Yes Joint Replacement: No Neurologic Surgery: No Oral Surgery: Yes (SINUSTOMY) Pacemaker: No Thoracic Surgery: No Tympanostomy Tube: Yes (LEFT EAR surgery August 2013) Other Surgery: Yes (Sinus, carpal tunnel ) Social History Alcohol Use: No Tobacco Use: Yes (1/2 PPD) Substance Use: No Allergies-Medications (Allergen,Severity, Reaction): Coded Allergies: Sulfa (Sulfonamide Antibiotics) (Verified Allergy, Severe, Wheezing, ) aspirin (Verified Allergy, Severe, WHEEZES, 07/13/17) bismuth subsalicylate (Verified Allergy, Severe, 07/13/17) cannot breath diatrizoate meglumine (Verified Allergy, Severe, Anaphylaxis, 07/13/17) diphenhydramine (Verified Allergy, Severe, Respiratory Failure, 07/13/17) fentanyl (Verified Allergy, Severe, itching, 07/13/17) gadobenic acid (Verified Allergy, Severe, Anaphylaxis, 07/13/17) gadodiamide (Verified Allergy, Severe, Anaphylaxis, 07/13/17) gadoteridol (Verified Allergy, Severe, Anaphylaxis, 07/13/17) ibuprofen (Verified Allergy, Severe, Respiratory Failure, 07/13/17) iodixanol (Verified Allergy, Severe, Anaphylaxis, 07/13/17) iohexol (Verified Allergy, Severe, Anaphylaxis, 07/13/17) mesalamine (Verified Allergy, Severe, 07/13/17) "I'M NOT SURE IF I'M ALLERGIC TO THAT" metoclopramide (Verified Allergy, Severe, Anaphylaxis, 07/13/17) PT STATMENT, "I JUST HAD A BAD REACTION TO IT" penicillin G (Verified Allergy, Severe, THROAT CLOSES, 07/13/17) tramadol (Verified Adverse Reaction, Severe, Wheezing, 07/13/17) Uncoded Allergies: MACADAMIA NUTS (Allergy, Severe, Wheezing, 02/10/17) Reported Meds & Prescriptions Reported Meds & Active Scripts Active Reported Amlodipine (Amlodipine Besylate) 10 Mg Tab 10 Mg PO DAILY Percocet (Oxycodone-Acetaminophen) 10-325 mg Tab 1 Tab PO Q6H PRN Zyrtec (Cetirizine HCl) 10 Mg Tablet PO DAILY Prevacid (Lansoprazole) 15 Mg Capdr 15 Mg PO DAILY Flonase Nasal [place] (Fluticasone Nasal [place]) 50 Mcg/Act [place] 50 Mcg EACH NARE BID Ventolin Hfa 18 GM Inh (Albuterol Sulfate) 90 Mcg/Act Aer 1 Puff INH Q4H PRN Spiriva Handihaler (Tiotropium Inh) 18 Mcg Cap 18 Mcg INH BID 1 capsule = 18 mcg Duoneb (Ipratropium-Albuterol Neb) 0.5-2.5 Mg/3 Ml Neb 1 Nebule INH DIRECTED Advair Diskus Inh (Fluticasone-Salmeterol Inh) 500-50 Mcg/Blist Aer 1 Puff INH BID Rinse mouth after use. Xanax (Alprazolam) 1 Mg Tab 1 Mg PO Q6H PRN Singulair (Montelukast Sodium) 10 Mg Tab 10 Mg PO HS Cymbalta DR (Duloxetine HCl) 60 Mg Capdr 120 Mg PO DAILY Review of Systems Except as stated in HPI: all other systems reviewed are Neg Physical Exam Narrative GENERAL: Awake and alert and in no acute distress. SKIN: Warm and dry. Skin is intact. There are no bruises or abrasions on her knee. HEAD: Normocephalic/atraumatic. EYES: Pupils are equal. Extraocular movements are intact. NECK: Normal range of motion. RESPIRATORY: Nonlabored respirations. MUSCULOSKELETAL: The right knee has no obvious deformity. Full range of motion. Distally neurovascularly intact. NEUROLOGICAL: Nonfocal. PSYCHIATRIC: Appropriate mood and affect. Data Data Last Documented VS Vital Signs Date Time Temp Pulse Resp B/P (MAP) Pulse Ox O2 Delivery O2 Flow Rate FiO2 07/13/17 22:41 Room Air 07/13/17 22:17 97.9 111 20 187/88 (121) 98 Orders Orders Knee, Complete (4vws) (07/13/17 22:22) MDM Medical Decision Making Medical Screen Exam Complete: Yes Emergency Medical Condition: Yes Differential Diagnosis Differential diagnosis of extremity trauma includes but is not limited to fracture, sprain or strain, dislocation, contusion Narrative Course This patient presents with a chief complaint of right knee injury. She has no external sign of injury to the knee. That is, the knee has no bruising, abrasion, swelling or deformity. She has full range of motion of the knee. X-ray is pending. I have pulled her up in [facility] on the advice of the nurse who is taking care of her. The nurse recognized her as being a pain clinic patient. The patient receives Percocet [address] Cabezas. Her last prescription was filled on June 17. This patient is begging for pain medication. I have explained to her that she gets 130 Percocet per month from her pain management doctor. This makes acute pain very difficult to control. I do not have anything further to offer her. Diagnosis Primary Impression: Contusion of right knee Qualified Codes: S80.01XA - Contusion of right knee, initial encounter Patient Instructions: General Instructions, RICE Therapy (ED) Disposition: 01 DISCHARGE HOME Condition: Stable Maria Guadalupe Garcia MD Jul 13, 2017 22:34
[2017-07-13] MEDS ORDERED: AMLO10TA2 PO (22:40)
--- NOTE | 2017-07-13 23:05 | RADRPT ---
EXAM DATE/TIME: 07/13/2017 22:32 [facility] COMPARISON: No previous studies available for comparison. INDICATIONS : Right knee pain after fall. MEDICAL HISTORY : None. SURGICAL HISTORY : None. ENCOUNTER: Initial ACUITY: 1 day PAIN SCORE: 9/10 LOCATION: Right knee, patellar surface. FINDINGS: Four view examination of the right knee demonstrates no evidence of fracture or dislocation. Bony mi neralization is normal. Mild degenerative changes. The suprapatellar soft tissues have a normal conf iguration. CONCLUSION: Mild degenerative changes without fracture. Shawn Soler MD on July 13, 2017 at 23:02 Board Certified Radiologist. This report was verified electronically.
== END 2017-07-13 23:14 | disposition home or self-care (01) ==
LOC: PHED 22:14
DX: S80.01XA Contusion of right knee, initial encounter (principal); D64.9 Anemia, unspecified; M19.90 Unspecified osteoarthritis, unspecified site; K76.0 Fatty (change of) liver, not elsewhere classified; M32.9 Systemic lupus erythematosus, unspecified; I10 Essential (primary) hypertension; K21.9 Gastro-esophageal reflux disease without esophagitis; W18.30XA Fall on same level, unspecified, initial encounter; Y92.240 Courthouse as the place of occurrence of the external cause
CPT/HCPCS: 73564; 99283

== ENCOUNTER 2017-08-03 22:27 | Observation (INO) | payer MEDICARE, OTHER ==
[~2017-08-03] VITALS: Ht 162.6 cm; Wt 110.0 kg
[~2017-08-03 22:27] MED LIST changes: +AMLO10TA2 PO; -AMLO5TAB2 PO
[2017-08-03 22:30] VITALS: BP 194/97; PULSE 113; RESP 20; TEMP 97.8; O2SAT 99
[2017-08-03] MEDS ORDERED: LEVO750T3 PO (23:26)
[2017-08-03 23:36] LABS: AUTOMATED NEUTROPHIL # 7.3 TH/MM3 (1.8-7.7); BASOPHIL # 0.2 TH/MM3 (0-0.2); BASOPHIL % 1.3 % (0.0-2.0); EOSINOPHIL # 0.6 TH/MM3 (0-0.4); EOSINOPHIL % 4.4 % (0.0-4.0); HEMATOCRIT 37.1 % (35.0-46.0); HEMOGLOBIN 12.3 GM/DL (11.6-15.3); LYMPH % 31.9 % (9.0-44.0); LYMPHOCYTE # 4.2 TH/MM3 (1.0-4.8); MEAN CELL VOLUME 73.3 FL (80.0-100.0); MEAN CORPUSCULAR HEMOGLOBIN 24.3 PG (27.0-34.0); MEAN CORPUSCULAR HGB CONC 33.1 % (32.0-36.0); MONO % 6.5 % (0.0-8.0); MONOCYTE # 0.9 TH/MM3 (0-0.9); NEUT % 55.9 % (16.0-70.0); PLATELET COUNT 457 TH/MM3 (150-450); RED BLOOD COUNT 5.07 MIL/MM3 (4.00-5.30); RED CELL DISTRIBUTION WIDTH 16.7 % (11.6-17.2); WHITE BLOOD COUNT 13.1 TH/MM3 (4.0-11.0)
[2017-08-03 23:38] LABS: BACTERIA, URINE OCC /hpf; BILIRUBIN, URINE NEG (NEG); BLOOD, URINE NEG (NEG); GLUCOSE,URINE NEG (NEG); KETONE, URINE NEG (NEG); NITRITE,URINE NEG (NEG); PH, URINE 6.5 (5.0-8.5); SQUAMOUS EPITHELIAL CELL URINE 1 /hpf (0-5); URINE COLOR YELLOW (YELLW/STRAW); URINE LEUKOCYTE ESTERASE NEG (NEG)
--- NOTE | 2017-08-03 23:47 | RADRPT ---
EXAM DATE/TIME: 08/03/2017 23:27 [facility] COMPARISON: CHEST SINGLE AP, May 07, 2017, 16:46. INDICATIONS : Chest pain. MEDICAL HISTORY : Gastroesophageal reflux disease. Hypertension Renal calculi. Asthma Arthritis Anemia Depression SURGICAL HISTORY : Hysterectomy. ENCOUNTER: Initial ACUITY: 1 day PAIN SCORE: 0/10 LOCATION: Bilateral chest FINDINGS: A single view of the chest demonstrates the lungs to be symmetrically aerated without evidence of mas s, infiltrate or effusion. The cardiomediastinal contours are unremarkable. Osseous structures are intact. CONCLUSION: No acute cardiopulmonary process. Judson Lamar MD on August 03, 2017 at 23:46 Board Certified Radiologist. This report was verified electronically.
[2017-08-03 23:48] LABS: PROTHROMBIN TIME - PATIENT 10.1 SEC (9.8-11.6)
--- NOTE | 2017-08-03 23:50 | RADRPT ---
EXAM DATE/TIME: 08/03/2017 23:41 [facility] COMPARISON: CT BRAIN W/O CONTRAST, August 22, 2016, 13:05. INDICATIONS : Cephalgia; left facial numbness. RADIATION DOSE: 66.34 CTDIvol (mGy) MEDICAL HISTORY : Hypertension. Cardiovascular disease SURGICAL HISTORY : Hysterectomy. Sinus ENCOUNTER: Initial ACUITY: 1 day PAIN SCALE: 5/10 LOCATION: cranial TECHNIQUE: Multiple contiguous axial images were obtained of the head. Using automated exposure control and adj ustment of the mA and/or kV according to patient size, radiation dose was kept as low as reasonably a chievable to obtain optimal diagnostic quality images. DICOM format image data is available electro nically for review and comparison. FINDINGS: CEREBRUM: The ventricles are normal for age. No evidence of midline shift, mass lesion, hemorrhage or acute in farction. No extra-axial fluid collections are seen. POSTERIOR FOSSA: The cerebellum and brainstem are intact. The 4th ventricle is midline. The cerebellopontine angle i s unremarkable. EXTRACRANIAL: The visualized portion of the orbits is intact. SKULL: The calvaria is intact. No evidence of skull fracture. CONCLUSION: Negative exam. No change from prior. Judson Lamar MD on August 03, 2017 at 23:48 Board Certified Radiologist. This report was verified electronically.
[2017-08-03 23:57] LABS: ALBUMIN 3.3 GM/DL (3.4-5.0); AST (GOT) 14 U/L (15-37); BICARBONATE 26.2 MEQ/L (21.0-32.0); BLOOD UREA NITROGEN 6 MG/DL (7-18); CALCIUM 8.7 MG/DL (8.5-10.1); CHLORIDE 101 MEQ/L (98-107); CREATININE 0.73 MG/DL (0.50-1.00); GLOMERULAR FILTRATION RATE 88 ML/MIN (>89); GLUCOSE,RANDOM 132 MG/DL (74-106); SODIUM (NA) 136 MEQ/L (136-145)
[2017-08-03 23:58] LABS: ALT (GPT) 21 U/L (10-53)
[2017-08-04] LABS: ALKALINE PHOSPHATASE 193 U/L (45-117); TOTAL BILIRUBIN ADULT 0.2 MG/DL (0.2-1.0); TOTAL PROTEIN 7.5 GM/DL (6.4-8.2)
--- NOTE | 2017-08-04 00:10 | RADRPT ---
EXAM DATE/TIME: 08/03/2017 23:43 [facility] COMPARISON: CT ABDOMEN & PELVIS W/O CONTRAST, October 17, 2016, 19:20. INDICATIONS : Lower abdominal pain. ORAL CONTRAST: No oral contrast ingested. RADIATION DOSE: 18.26 CTDIvol (mGy) MEDICAL HISTORY : Cardiovascular disease. Hypertension. Gastroesophageal reflux disease. SURGICAL HISTORY : Hysterectomy. ENCOUNTER: Initial ACUITY: 1 day PAIN SCALE: 7/10 LOCATION: Bilateral lower quadrant TECHNIQUE: Volumetric scanning of the abdomen and pelvis was performed. Using automated exposure control and ad justment of the mA and/or kV according to patient size, radiation dose was kept as low as reasonably achievable to obtain optimal diagnostic quality images. DICOM format image data is available electro nically for review and comparison. FINDINGS: LOWER LUNGS: Atelectasis or scarring in the left lingula and left lung base. Lung bases are otherwise clear LIVER: Homogeneous, but decreased density without lesion. There is no dilation of the biliary tree. No andreas cified gallstones. SPLEEN: Normal size without lesion. PANCREAS: Within normal limits. KIDNEYS: Normal in size and shape. There is no mass, stone, or hydronephrosis. ADRENAL GLANDS: Within normal limits. VASCULAR: There is no aortic aneurysm. BOWEL/MESENTERY: The stomach, small bowel, and colon demonstrate no acute abnormality. There is no free intraperitone al air or fluid. ABDOMINAL WALL: There is some faint stranding in the subcutaneous tissues of the infraumbilical anterior abdominal wa ll. RETROPERITONEUM: There is no lymphadenopathy. BLADDER: No wall thickening or mass. REPRODUCTIVE: Patient appears to be status post hysterectomy. Both ovaries are present with a 3.2 cm cyst in the le ft ovary. INGUINAL: There is no lymphadenopathy or hernia. MUSCULOSKELETAL: Within normal limits for patient age. CONCLUSION: 1. Diffuse hepatic fatty infiltration. 2. Faint stranding in the subcutaneous tissues midline in the infraumbilical anterior abdominal wall. Findings are nonspecific and could represent focal contusion or early cellulitis. 3. Patient is status post hysterectomy. Both ovaries are present with a 3.2 cm cyst in the left ovary . 4. Minimal atelectasis/scarring in the left lingula and left lung base. Lung bases are otherwise khushi r Judson Lamar MD on August 04, 2017 at 0:02 Board Certified Radiologist. This report was verified electronically.
[2017-08-04] MEDS ORDERED: HYDROmorphone HCL PF 2 MG/ML VIAL IV PUSH ONE (01:15)
--- NOTE | 2017-08-04 01:40 | RADRPT ---
EXAM DATE/TIME: 08/03/2017 23:41 [facility] COMPARISON: CT BRAIN W/O CONTRAST, August 03, 2017, 23:41. CT TEMPORAL BONE W/O IV CONT, August 22, 2016, 13:05. INDICATIONS : Left cephalgia. RADIATION DOSE: ; Reconstructed from previous dataset, no dose MEDICAL HISTORY : Cardiovascular disease. Hypertension. SURGICAL HISTORY : Hysterectomy. Sinus. ENCOUNTER: Initial ACUITY: 1 day PAIN SCORE: 4/10 LOCATION: Left facial TECHNIQUE: Volumetric scanning of the temporal bone was performed. Using automated exposure control and adjustm ent of the mA and/or kV according to patient size, radiation dose was kept as low as reasonably achie vable to obtain optimal diagnostic quality images. DICOM format image data is available [employer] y for review and comparison. FINDINGS: OSSICLES: The ossicles are intact. The oval window niche is intact. MASTOID AIR CELLS: Well aerated. There may be some minimal fluid density in the inferior aspect of the left mastoid air cells. The aditus is intact. MIDDLE EAR: The epitympanum and hypotympanum are intact. Prussak's space and scutum are intact. The oval and rou nd window is intact. LABYRINTH: The cochlea and semicircular canals are normal in configuration without sclerosis. INTERNAL ACOUSTIC CANAL: Normal in size without erosion. The cerebellar-pontine angle is intact. JUGULAR FOSSA: Normal in size and position. FACIAL CANAL: The tympanic, genu and descending portions are intact. EXTERNAL ACOUSTIC CANAL: The bony and cartilaginous portions are intact. CONCLUSION: 1. There may be a minimal mastoiditis inferiorly on the left with some fluid density in the most infe rior air cells. 2. Otherwise negative Judson Lamar MD on August 04, 2017 at 1:35 Board Certified Radiologist. This report was verified electronically.
--- NOTE | 2017-08-04 03:25 | HHI.HP ---
[facility] Joy Danielson MD Admission Diagnosis mastoiditis Diagnoses: Travel History International Travel<30 Days: No Contact w/Intl Traveler <30 Da: No Traveled to Known Affected Are: No History of Present Illness 42-year-old female with a past medical history significant for lupus anticoagulant, asthma, hypertension, recurrent mastoiditis and MRSA cellulitis on her right lower extremity currently undergoing wound care and antibiotic treatment with infectious disease presents to the emergency department for evaluation of left ear/head pain. The patient reports the pain started earlier yesterday and continued to worsen throughout the day. She denies any fever/ chills. No discharge from the ear. She has an ENT that she sees regularly, Dr. Starr, last seen 2 weeks ago. The patient denies any other symptoms such as chest pain/shortness of breath. No abdominal pain. No nausea/vomiting/ diarrhea. No lateralizing signs/symptoms. Review of Systems Except as stated in HPI: all other systems reviewed are Neg Past Family Social History Past Medical History Lupus anticoagulant Asthma Hypertension MRSA cellulitis of the right lower extremity Recurrent mastoiditis Past Surgical History Hysterectomy D&C Bilateral carpal tunnel release Eustachian tube placement and removal Allergies: Coded Allergies: Sulfa (Sulfonamide Antibiotics) (Verified Allergy, Severe, Wheezing, ) aspirin (Verified Allergy, Severe, WHEEZES, 07/13/17) bismuth subsalicylate (Verified Allergy, Severe, 07/13/17) cannot breath diatrizoate meglumine (Verified Allergy, Severe, Anaphylaxis, 07/13/17) diphenhydramine (Verified Allergy, Severe, Respiratory Failure, 07/13/17) fentanyl (Verified Allergy, Severe, itching, 07/13/17) gadobenic acid (Verified Allergy, Severe, Anaphylaxis, 07/13/17) gadodiamide (Verified Allergy, Severe, Anaphylaxis, 07/13/17) gadoteridol (Verified Allergy, Severe, Anaphylaxis, 07/13/17) ibuprofen (Verified Allergy, Severe, Respiratory Failure, 07/13/17) iodixanol (Verified Allergy, Severe, Anaphylaxis, 07/13/17) iohexol (Verified Allergy, Severe, Anaphylaxis, 07/13/17) mesalamine (Verified Allergy, Severe, 07/13/17) "I'M NOT SURE IF I'M ALLERGIC TO THAT" metoclopramide (Verified Allergy, Severe, Anaphylaxis, 07/13/17) PT STATMENT, "I JUST HAD A BAD REACTION TO IT" penicillin G (Verified Allergy, Severe, THROAT CLOSES, 07/13/17) tramadol (Verified Adverse Reaction, Severe, Wheezing, 07/13/17) Uncoded Allergies: MACADAMIA NUTS (Allergy, Severe, Wheezing, 02/10/17) Physical Exam Vital Signs Vital Signs Date Time Temp Pulse Resp B/P (MAP) Pulse Ox O2 Delivery O2 Flow Rate FiO2 08/03/17 23:30 Room Air 08/03/17 22:30 97.8 113 20 194/97 (129) 99 Physical Exam GENERAL: Obese, female lying in bed SKIN: No rashes, ecchymoses or lesions. Cool and dry. HEAD: Atraumatic. Normocephalic. No temporal or scalp tenderness. EYES: Pupils equal round and reactive. Extraocular motions intact. No scleral icterus. No injection or drainage. ENT: Nose without bleeding, purulent drainage or septal hematoma. Throat without erythema, tonsillar hypertrophy or exudate. Uvula midline. Airway patent. Unable to visualize tympanic membrane secondary to patient's pain with examination. NECK: Trachea midline. No JVD or lymphadenopathy. Supple, nontender, no meningeal signs. CARDIOVASCULAR: Regular rate and rhythm without murmurs, gallops, or rubs. RESPIRATORY: Clear to auscultation. Breath sounds equal bilaterally. No wheezes , rales, or rhonchi. GASTROINTESTINAL: Abdomen soft, non-tender, nondistended. No hepato-splenomegaly , or palpable masses. No guarding. MUSCULOSKELETAL: Extremities without clubbing, cyanosis, or edema. No joint tenderness, effusion, or edema noted. No calf tenderness. NEUROLOGICAL: Awake and alert. Cranial nerves II through XII intact. Motor and sensory grossly within normal limits. Normal speech. Laboratory Laboratory Tests Test 08/03/17 23:26 08/03/17 23:27 08/04/17 01:15 Urine Color YELLOW Urine Turbidity CLEAR Urine pH 6.5 Urine Specific [place] 1.013 Urine Protein TRACE Urine Glucose (UA) NEG Urine Ketones NEG Urine Occult Blood NEG Urine Nitrite NEG Urine Bilirubin NEG Urine Urobilinogen LESS THAN 2.0 Urine Leukocyte Esterase NEG Urine RBC 1 Urine WBC 2 Urine Squamous Epithelial Cells 1 Urine Bacteria OCC Microscopic Urinalysis Comment CATH-CULTURE IND White Blood Count 13.1 Red Blood Count 5.07 Hemoglobin 12.3 Hematocrit 37.1 Mean Corpuscular Volume 73.3 Mean Corpuscular Hemoglobin 24.3 Mean Corpuscular Hemoglobin Concent 33.1 Red Cell Distribution Width 16.7 Platelet Count 457 Mean Platelet Volume 7.0 Neutrophils (%) (Auto) 55.9 Lymphocytes (%) (Auto) 31.9 Monocytes (%) (Auto) 6.5 Eosinophils (%) (Auto) 4.4 Basophils (%) (Auto) 1.3 Neutrophils # (Auto) 7.3 Lymphocytes # (Auto) 4.2 Monocytes # (Auto) 0.9 Eosinophils # (Auto) 0.6 Basophils # (Auto) 0.2 CBC Comment DIFF FINAL Differential Comment Prothrombin Time 10.1 Prothromb Time International Ratio 1.0 Activated Partial Thromboplast Time 43.7 Blood Urea Nitrogen 6 Creatinine 0.73 Random Glucose 132 Total Protein 7.5 Albumin 3.3 Calcium Level 8.7 Alkaline Phosphatase 193 Aspartate Amino Transf (AST/SGOT) 14 Alanine Aminotransferase (ALT/SGPT) 21 Total Bilirubin 0.2 Sodium Level 136 Potassium Level 3.5 Chloride Level 101 Carbon Dioxide Level 26.2 Anion Gap 9 Estimat Glomerular Filtration Rate 88 Lactic Acid Level 1.7 Date/Time Source Procedure Growth Status 08/04/17 01:11 Blood Peripheral Aerobic Blood Culture Pending Received 08/04/17 01:11 Blood Peripheral Anaerobic Blood Culture Pending Received 08/03/17 23:26 Urine Catheterized Urine Urine Culture Pending Received Result Diagram: 08/03/17232608/03/172326 Caprini VTE Risk Assessment Caprini VTE Risk Assessment: Mod/High Risk (score >= 2) Caprini Risk Assessment Model Point Value = 1 Point Value = 2 Point Value = 3 Point Value = 5 Age 41-60 Minor surgery BMI > 25 kg/m2 Swollen legs Varicose veins or History of unexplained or recurrent spontaneous Oral contraceptives or hormone replacement Sepsis (< 1 month) Serious lung disease, including pneumonia (< 1 month) Abnormal pulmonary function Acute myocardial infarction Congestive heart failure (< 1 month) History of inflammatory bowel disease Medical patient at bed rest Age 61-74 Arthroscopic surgery Major open surgery (> 45 min) Laparoscopic surgery (> 45 min) Malignancy Confined to bed (> 72 hours) Immobilizing plaster cast Central venous access Age >= 75 History of VTE Family history of VTE Factor V Leiden Prothrombin 24122P Lupus anticoagulant Anticardiolipin antibodies Elevated serum homocysteine Heparin-induced thrombocytopenia Other congenital or acquired thrombophilia Stroke (< 1 month) Elective arthroplasty Hip, pelvis, or leg fracture Acute spinal cord injury (< 1 month) Prophylaxis Regimen Total Risk Factor Score Risk Level Prophylaxis Regimen 0-1 Low Early ambulation 2 Moderate Order ONE of the following: *Sequential Compression Device (SCD) *Heparin 5000 units SQ BID 3-4 Higher Order ONE of the following medications: *Heparin 5000 units SQ TID *Enoxaparin/Lovenox 40 mg SQ daily (WT < 150 kg, CrCl > 30 mL/min) *Enoxaparin/Lovenox 30 mg SQ daily (WT < 150 kg, CrCl > 10-29 mL/min) *Enoxaparin/Lovenox 30 mg SQ BID (WT < 150 kg, CrCl > 30 mL/min) AND/OR *Sequential Compression Device (SCD) 5 or more Highest Order ONE of the following medications: *Heparin 5000 units SQ TID (Preferred with Epidurals) *Enoxaparin/Lovenox 40 mg SQ daily (WT < 150 kg, CrCl > 30 mL/min) *Enoxaparin/Lovenox 30 mg SQ daily (WT < 150 kg, CrCl > 10-29 mL/min) *Enoxaparin/Lovenox 30 mg SQ BID (WT < 150 kg, CrCl > 30 mL/min) AND *Sequential Compression Device (SCD) Assessment and Plan Assessment and Plan Assessment/plan: 1. Mastoiditis Likely chronic component although patient reporting severe left ear/head pain Temporal bone CT significant for possible minimal mastoiditis IV Rocephin Anticipate transition to p.o. antibiotics after 24 hours Follow-up with ENT as an outpatient Dilaudid for pain as patient says the pain is excruciating and morphine does not work for her 2. Lupus anticoagulant Heparin 3. MRSA cellulitis Patient followed by ID and wound care as an outpatient Continue home Levaquin 4. Hypertension/asthma Continue home medications FEN Heart healthy diet Electrolytes: Monitor and replete prn Heparin Malu Palacios MD August 04, 2017 03:25
[2017-08-04] MEDS ORDERED: BISACODYL 10 MG SUPP RECTAL PRN (03:30)
[2017-08-04] MEDS ORDERED: NALOXONE HCL 0.4 MG/ML AMP IV PUSH PRN (03:30)
[2017-08-04] MEDS ORDERED: LACTULOSE SYRUP 20 GM/30 ML CUP PO PRN (03:30)
[2017-08-04] MEDS ORDERED: MAGNESIUM HYDROXIDE SUSP 30 ML CUP PO PRN (03:30)
[2017-08-04] MEDS ORDERED: ONDANSETRON HCL 4 MG/2 ML VIAL IVP PRN (03:30)
[2017-08-04] MEDS ORDERED: SODIUM CHLORIDE 0.9% FLUSH 10 ML FLUSH IV FLUSH PRN (03:30)
[2017-08-04] MEDS ORDERED: ACETAMINOPHEN 325 MG TAB PO PRN ×2 (03:30→08:30)
[2017-08-04] MEDS ORDERED: SENNOSIDES 8.6 MG TAB PO PRN (03:30)
[2017-08-04] MEDS: HYDROmorphone HCL PF 0.5 MG/0.5 ML SYRINGE IV PRN ×4 (03:58→17:15)
[2017-08-04] MEDS: cefTRIAXone INJ 2,000 MG in SODIUM CHLORIDE 0.9% INJ 100 ML IV SCH ×2 (03:58→16:06)
[2017-08-04] MEDS ORDERED: ALBUTEROL SULFATE 90 MCG/ACT HFA 18 GM INHALER INH PRN (04:00)
[2017-08-04 04:06] VITALS: BP 135/80; PULSE 89; RESP 22; O2SAT 94
--- NOTE | 2017-08-04 04:39 | PD ---
HPI Chief Complaint: Numbness/Tingling Time Seen by Provider: 23:09 Travel History International Travel<30 days: No Contact w/Intl Traveler<30days: No Traveled to known affect area: No History of Present Illness HPI Patient presents to the emergency department complaining of left-sided headache. States that the left side of her face feels numb. Apparently symptoms have been present intermittently in the past secondary to ear surgeries that she has gotten in the past. Reporting mild ear pain but worse pain in the mastoid area. States that she also has MRSA leg infection. She denies fever, chills, vomiting, vision change, neck pain, rash. She does report nausea, left facial numbness and tingling, and feeling dizzy. The last time she had these symptoms was October 06, 2015, which per medical records she was treated for mastoiditis. PFSH Past Medical History Hx Anticoagulant Therapy: Yes Anemia: Yes Arthritis: Yes Asthma: Yes Anxiety: Yes Depression: Yes Heart Rhythm Problems: No Cancer: No Cardiovascular Problems: Yes High Cholesterol: No Chest Pain: No Congestive Heart Failure: No COPD: No Cerebrovascular Accident: No Diabetes: No Diminished Hearing: No Endocrine: No Gastrointestinal Disorders: Yes (Fatty liver, GERD) GERD: Yes Genitourinary: Yes Headaches: Yes Hepatitis: No Hiatal Hernia: No Herniated Disk: Yes Hypertension: Yes Immune Disorder: Yes (LUPUS) Implanted Vascular Access Dvce: No Kidney Stones: Yes Medical other: Yes (LUPUS LIKE CON'D ("BLOOD WON'T CLOT"), ANEMIA) Musculoskeletal: Yes Neurologic: Yes Psychiatric: Yes Reproductive: No Respiratory: Yes Immunizations Current: Yes Migraines: Yes Seizures: No Sleep Apnea: Yes (BiPAP) Thyroid Disease: No ?: Not Menopausal: Yes : 0 Para: 0 Ovarian Cysts: Yes Dilation and Curettage (D&C): Yes Past Surgical History Abdominal Surgery: No AICD: No Cardiac Surgery: Yes (ABLASION HYSTERECTOMY) Ear Surgery: Yes (Left) Endocrine Surgery: No Eye Surgery: No Genitourinary Surgery: Yes (Kidney stones ) Gynecologic Surgery: Yes (Ablation ) Hysterectomy: Yes Joint Replacement: No Neurologic Surgery: No Oral Surgery: Yes (SINUSTOMY) Pacemaker: No Thoracic Surgery: No Tympanostomy Tube: Yes (LEFT EAR surgery August 2013) Other Surgery: Yes (Sinus, carpal tunnel ) Social History Alcohol Use: No Tobacco Use: Yes (/2 PPD) Substance Use: No Allergies-Medications (Allergen,Severity, Reaction): Coded Allergies: Sulfa (Sulfonamide Antibiotics) (Verified Allergy, Severe, Wheezing, ) aspirin (Verified Allergy, Severe, WHEEZES, 07/13/17) bismuth subsalicylate (Verified Allergy, Severe, 07/13/17) cannot breath diatrizoate meglumine (Verified Allergy, Severe, Anaphylaxis, 07/13/17) diphenhydramine (Verified Allergy, Severe, Respiratory Failure, 07/13/17) fentanyl (Verified Allergy, Severe, itching, 07/13/17) gadobenic acid (Verified Allergy, Severe, Anaphylaxis, 07/13/17) gadodiamide (Verified Allergy, Severe, Anaphylaxis, 07/13/17) gadoteridol (Verified Allergy, Severe, Anaphylaxis, 07/13/17) ibuprofen (Verified Allergy, Severe, Respiratory Failure, 07/13/17) iodixanol (Verified Allergy, Severe, Anaphylaxis, 07/13/17) iohexol (Verified Allergy, Severe, Anaphylaxis, 07/13/17) mesalamine (Verified Allergy, Severe, 07/13/17) "I'M NOT SURE IF I'M ALLERGIC TO THAT" metoclopramide (Verified Allergy, Severe, Anaphylaxis, 07/13/17) PT STATMENT, "I JUST HAD A BAD REACTION TO IT" penicillin G (Verified Allergy, Severe, THROAT CLOSES, 07/13/17) tramadol (Verified Adverse Reaction, Severe, Wheezing, 07/13/17) Uncoded Allergies: MACADAMIA NUTS (Allergy, Severe, Wheezing, 02/10/17) Reported Meds & Prescriptions Reported Meds & Active Scripts Active Reported Levofloxacin 750 Mg Tablet 750 Mg PO DAILY Amlodipine (Amlodipine Besylate) 10 Mg Tab 10 Mg PO DAILY Percocet (Oxycodone-Acetaminophen) 10-325 mg Tab 1 Tab PO Q6H PRN Zyrtec (Cetirizine HCl) 10 Mg Tablet PO DAILY Prevacid (Lansoprazole) 15 Mg Capdr 15 Mg PO DAILY Flonase Nasal [place] (Fluticasone Nasal [place]) 50 Mcg/Act [place] 50 Mcg EACH NARE BID Ventolin Hfa 18 GM Inh (Albuterol Sulfate) 90 Mcg/Act Aer 1 Puff INH Q4H PRN Spiriva Handihaler (Tiotropium Inh) 18 Mcg Cap 18 Mcg INH BID 1 capsule = 18 mcg Duoneb (Ipratropium-Albuterol Neb) 0.5-2.5 Mg/3 Ml Neb 1 Nebule INH DIRECTED Advair Diskus Inh (Fluticasone-Salmeterol Inh) 500-50 Mcg/Blist Aer 1 Puff INH BID Rinse mouth after use. Xanax (Alprazolam) 1 Mg Tab 1 Mg PO Q6H PRN Singulair (Montelukast Sodium) 10 Mg Tab 10 Mg PO HS Cymbalta DR (Duloxetine HCl) 60 Mg Capdr 120 Mg PO DAILY Review of Systems Except as stated in HPI: all other systems reviewed are Neg Physical Exam Narrative GENERAL: She is in discomfort secondary to pain. SKIN: Focused skin assessment warm/dry. HEAD: Atraumatic. Normocephalic. Left mastoid tender to palpation. Positive maxillary sinus tenderness to palpation EYES: Pupils equal and round. No scleral icterus. No injection or drainage. Ocular muscles intact bilaterally. ENT: No nasal bleeding or discharge. Mucous membranes pink and moist. Positive right ear tube. No evidence of left ear infection. NECK: Trachea midline. No JVD. CARDIOVASCULAR: Regular rate and rhythm. No murmur appreciated. RESPIRATORY: No accessory muscle use. Clear to auscultation. Breath sounds equal bilaterally. GASTROINTESTINAL: Abdomen soft, non-tender, obese. MUSCULOSKELETAL: No obvious deformities. No clubbing. No cyanosis. Positive healing, circular wound right lower extremity. NEUROLOGICAL: Awake and alert. No obvious cranial nerve deficits. Motor grossly within normal limits. Normal speech. PSYCHIATRIC: Appropriate mood and affect; insight and judgment normal. Data Data Last Documented VS Vital Signs Date Time Temp Pulse Resp B/P (MAP) Pulse Ox O2 Delivery O2 Flow Rate FiO2 08/03/17 23:30 Room Air 08/03/17 22:30 97.8 113 20 194/97 (129) 99 Orders Orders Electrocardiogram (08/03/17 23:17) Prothrombin Time / Inr (Pt) (08/03/17 23:17) Act Partial Throm Time (Ptt) (08/03/17 23:17) Complete Blood Count With Diff (08/03/17 23:17) Comprehensive Metabolic Panel (08/03/17 23:17) Urinalysis - C+S If Indicated (08/03/17 23:17) Ct Brain W/O Iv Contrast(Rout) (08/03/17 23:17) Chest, Single Ap (08/03/17 23:17) Ecg Monitoring (08/03/17 23:17) Iv Access Insert/Monitor (08/03/17 23:17) Oximetry (08/03/17 23:17) Urine Culture (08/03/17 23:26) Ct Abd/Pel W/O Iv Contrast (08/03/17 23:46) Ct Temporal Bone W/O Iv Cont (08/04/17 ) Hydromorphone Pf Inj (Dilaudid Pf Inj) (08/04/17 01:15) Lactic Acid (08/04/17 01:07) Blood Culture (08/04/17 01:07) Admit Order (Ed Use Only) (08/04/17 02:31) (Hub Use Only)Inp Phy Cons/Ref (08/04/17 ) Ceftriaxone Inj (Rocephin Inj) (08/04/17 04:00) Place In Observation (08/04/17 ) Vital Signs (Adult) Q4H (08/04/17 03:21) Activity Oob With Assistance (08/04/17 03:21) Diet Heart Healthy (08/04/17 Breakfast) Sodium Chloride 0.9% Flush (Ns Flush) (08/04/17 03:30) Sodium Chloride 0.9% Flush (Ns Flush) (08/04/17 09:00) Acetaminophen (Tylenol) (08/04/17 03:30) Ondansetron Inj (Zofran Inj) (08/04/17 03:30) Basic Metabolic Panel (Bmp) (08/05/17 06:00) Complete Blood Count With Diff (08/05/17 06:00) Heparin Inj (Heparin Inj) (08/04/17 06:00) Naloxone Inj (Narcan Inj) (08/04/17 03:30) Docusate Sodium-Senna (Afshan-Colace) (08/04/17 09:00) Magnesium Hydroxide Liq (Milk Of Magnesi (08/04/17 03:30) Sennosides (Senokot) (08/04/17 03:30) Bisacodyl Supp (Dulcolax Supp) (08/04/17 03:30) Lactulose Liq (Lactulose Liq) (08/04/17 03:30) Labs Laboratory Tests Test 08/03/17 23:26 08/03/17 23:27 08/04/17 01:15 Urine Color YELLOW Urine Turbidity CLEAR Urine pH 6.5 Urine Specific [place] 1.013 Urine Protein TRACE mg/dL Urine Glucose (UA) NEG mg/dL Urine Ketones NEG mg/dL Urine Occult Blood NEG Urine Nitrite NEG Urine Bilirubin NEG Urine Urobilinogen LESS THAN 2.0 MG/DL Urine Leukocyte Esterase NEG Urine RBC 1 /hpf Urine WBC 2 /hpf Urine Squamous Epithelial Cells 1 /hpf Urine Bacteria OCC /hpf Microscopic Urinalysis Comment CATH-CULTURE IND White Blood Count 13.1 TH/MM3 Red Blood Count 5.07 MIL/MM3 Hemoglobin 12.3 GM/DL Hematocrit 37.1 % Mean Corpuscular Volume 73.3 FL Mean Corpuscular Hemoglobin 24.3 PG Mean Corpuscular Hemoglobin Concent 33.1 % Red Cell Distribution Width 16.7 % Platelet Count 457 TH/MM3 Mean Platelet Volume 7.0 FL Neutrophils (%) (Auto) 55.9 % Lymphocytes (%) (Auto) 31.9 % Monocytes (%) (Auto) 6.5 % Eosinophils (%) (Auto) 4.4 % Basophils (%) (Auto) 1.3 % Neutrophils # (Auto) 7.3 TH/MM3 Lymphocytes # (Auto) 4.2 TH/MM3 Monocytes # (Auto) 0.9 TH/MM3 Eosinophils # (Auto) 0.6 TH/MM3 Basophils # (Auto) 0.2 TH/MM3 CBC Comment DIFF FINAL Differential Comment Prothrombin Time 10.1 SEC Prothromb Time International Ratio 1.0 RATIO Activated Partial Thromboplast Time 43.7 SEC Blood Urea Nitrogen 6 MG/DL Creatinine 0.73 MG/DL Random Glucose 132 MG/DL Total Protein 7.5 GM/DL Albumin 3.3 GM/DL Calcium Level 8.7 MG/DL Alkaline Phosphatase 193 U/L Aspartate Amino Transf (AST/SGOT) 14 U/L Alanine Aminotransferase (ALT/SGPT) 21 U/L Total Bilirubin 0.2 MG/DL Sodium Level 136 MEQ/L Potassium Level 3.5 MEQ/L Chloride Level 101 MEQ/L Carbon Dioxide Level 26.2 MEQ/L Anion Gap 9 MEQ/L Estimat Glomerular Filtration Rate 88 ML/MIN Lactic Acid Level 1.7 mmol/L MDM Medical Decision Making Medical Screen Exam Complete: Yes Emergency Medical Condition: Yes Interpretation(s) Last Impressions Temporal Bone CT 08/04/17 0000 Signed Impressions: Service Date/Time: Thursday, August 03, 2017 23:41 - CONCLUSION: 1. There may be a minimal mastoiditis inferiorly on the left with some fluid density in the most inferior air cells. 2. Otherwise negative Judson Lamar MD Abdomen/Pelvis CT 08/03/176 Signed Impressions: Service Date/Time: Thursday, August 03, 2017 23:43 - CONCLUSION: 1. Diffuse hepatic fatty infiltration. 2. Faint stranding in the subcutaneous tissues midline in the infraumbilical anterior abdominal wall. Findings are nonspecific and could represent focal contusion or early cellulitis. 3. Patient is status post hysterectomy. Both ovaries are present with a 3.2 cm cyst in the left ovary. 4. Minimal atelectasis/scarring in the left lingula and left lung base. Lung bases are otherwise clear Judson Lamar MD Head CT 08/03/172316 Signed Impressions: Service Date/Time: Thursday, August 03, 2017 23:41 - CONCLUSION: Negative exam. No change from prior. Judson Lamar MD Chest X-Ray 08/03/172316 Signed Impressions: Service Date/Time: Thursday, August 03, 2017 23:27 - CONCLUSION: No acute cardiopulmonary process. Judson Lamar MD ECG: SR, rate 94, incomplete RBBB Labs: elevated wbc count, PTT, PLT, + bacteria in urine. Differential Diagnosis Mastoiditis, otitis media, sinusitis, CVA, intracranial mass, Narrative Course Patient presents to the emergency department with headache and left mastoid pain. She has a history of mastoiditis. He was also tachycardic initially, which resolved over ER stay. She was given 1 mg IV Dilaudid for pain. Blood cultures and urine cultures are pending, elevated WBC count. Lactate was normal , patient received IV Rocephin in the emergency department. Will admit for further evaluation and management. Of note, patient had a benign abdominal exam while in CT she started complaining of abdominal pain, which has been chronically intermittent. I received a call from the pile driving technician about getting a CT scan of the abdomen and pelvis while she was there, which I ordered. Sepsis Criteria SIRS Criteria (2 or more): Heart rate over 90, WBC > 08984, < 4000 or > 10% bands Sepsis Criteria (SIRS+source): Infect source susp/known Diagnosis Primary Impression: Mastoiditis of left side Additional Impression: Sepsis Qualified Codes: A41.9 - Sepsis, unspecified organism Admitting Information Admitting Physician Requests: Admit Condition: Stable Skyla Nice MD August 04, 2017 04:39
[2017-08-04] MEDS: ALBUTEROL SULFATE 90 MCG/ACT HFA 8 GM INHALER INH PRN ×3 (04:47→09:26)
[2017-08-04] MEDS: HEPARIN SODIUM - SQ 10,000 UNITS/ML VIAL SQ SCH ×3 (06:33→22:54)
[2017-08-04] MEDS ORDERED: oxyCODONE/ACETAMINOPHEN 5 MG/325 MG TAB PO PRN (08:30)
[2017-08-04] MEDS ORDERED: ALPRAZolam 1 MG TAB PO PRN (08:30)
[2017-08-04] MEDS: SODIUM CHLORIDE 0.9% FLUSH 10 ML FLUSH IV FLUSH SCH ×2 (09:00→22:53)
[2017-08-04] MEDS: BUDESONIDE-FORMOTEROL 160/4.5 MCG INHALER INH SCH ×2 (09:00→22:51)
[2017-08-04] MEDS: TIOTROPIUM BROMIDE 18 MCG INH INH SCH ×2 (09:00→22:49)
[2017-08-04] MEDS: DULoxetine HCl DR 60 MG CAP PO SCH (09:00)
--- NOTE | 2017-08-04 09:00 | HHI.PR ---
Subjective Remarks Follow up for mastoiditis. The patient reports continued pain behind her left ear, unchanged compared to yesterday. She states it feels swollen with pressure. She also feels like there's fluid in her left ear but denies any drainage. Denies any fevers or chills. She states she last saw Dr. Starr 2 weeks ago and her tympanostomy tube fell out but it was not replaced. She denies any other medical complaints at this time. Objective Vitals Vital Signs Date Time Temp Pulse Resp B/P (MAP) Pulse Ox O2 Delivery O2 Flow Rate FiO2 08/04/17 04:06 89 22 135/80 (98) 94 Room Air 08/03/17 23:30 Room Air 08/03/17 22:30 97.8 113 20 194/97 (129) 99 I/O 08/03/17 08/03/17 08/03/17 08/04/17 08/04/17 08/04/17 07:00 15:00 23:00 07:00 15:00 23:00 Intake Total 100 ml Balance 100 ml Intake IV Total 100 ml Result Diagram: 08/03/17232608/03/172326 Imaging Last Impressions Temporal Bone CT 08/04/17 0000 Signed Impressions: Service Date/Time: Thursday, August 03, 2017 23:41 - CONCLUSION: 1. There may be a minimal mastoiditis inferiorly on the left with some fluid density in the most inferior air cells. 2. Otherwise negative Judson Lamar MD Abdomen/Pelvis CT 08/03/17 2346 Signed Impressions: Service Date/Time: Thursday, August 03, 2017 23:43 - CONCLUSION: 1. Diffuse hepatic fatty infiltration. 2. Faint stranding in the subcutaneous tissues midline in the infraumbilical anterior abdominal wall. Findings are nonspecific and could represent focal contusion or early cellulitis. 3. Patient is status post hysterectomy. Both ovaries are present with a 3.2 cm cyst in the left ovary. 4. Minimal atelectasis/scarring in the left lingula and left lung base. Lung bases are otherwise clear Judson Lamar MD Head CT 08/03/177 Signed Impressions: Service Date/Time: Thursday, August 03, 2017 23:41 - CONCLUSION: Negative exam. No change from prior. Judson Lamar MD Chest X-Ray 08/03/17 2872 Signed Impressions: Service Date/Time: Thursday, August 03, 2017 23:27 - CONCLUSION: No acute cardiopulmonary process. Judson Lamar MD Objective Remarks GENERAL: Well-nourished, well-developed middle aged female patient in [facility]. SKIN: Warm and dry. No rash. HEENT: Normocephalic. Atraumatic.Pupils equal and round. Mucous membranes pink and moist. Left ear tympanic membrane visualized with +cone of light, no TM erythema or bulging. Left mastoid tender to palpation. NECK: Supple. Trachea midline. No palpable lymphadenopathy. CARDIOVASCULAR: Regular rate and rhythm. No murmur appreciated. RESPIRATORY: No accessory muscle use. Mild expiratory wheezing at bases. Breath sounds equal bilaterally. GASTROINTESTINAL: Abdomen soft, non-tender, nondistended. Normoactive bowel sounds x4. MUSCULOSKELETAL: No obvious deformities. Extremities without clubbing, cyanosis , or edema. NEUROLOGICAL: Awake and alert. No obvious cranial nerve deficits. Motor grossly within normal limits.Normal speech. PSYCHIATRIC: Appropriate mood and affect; insight and judgment normal. Medications and IVs Current Medications Medications (Trade) Dose Ordered Sig/Thiago Route Start Time Stop Time Status Last Admin Ceftriaxone Sodium 2000 mg/ Sodium Chloride 100 ml @ 200 mls/hr Q12H IV 08/04/17 04:00 08/04/17 03:58 (NS Flush) 2 ml UNSCH PRN IV FLUSH 08/04/17 03:30 (NS Flush) 2 ml BID IV FLUSH 08/04/17 09:00 (Zofran Inj) 4 mg Q6H PRN IVP 08/04/17 03:30 08/04/17 03:59 (Heparin Inj) 5,000 units Q8H SQ 08/04/17 06:00 08/04/17 06:33 (Narcan Inj) 0.4 mg UNSCH PRN IV PUSH 08/04/17 03:30 (Afshan-Colace) 1 tab BID PO 08/04/17 09:00 08/04/17 09:26 (Milk Of Magnesia Liq) 30 ml Q12H PRN PO 08/04/17 03:30 (Senokot) 17.2 mg Q12H PRN PO 08/04/17 03:30 (Dulcolax Supp) 10 mg DAILY PRN RECTAL 08/04/17 03:30 (Lactulose Liq) 30 ml DAILY PRN PO 08/04/17 03:30 (Norvasc) 10 mg DAILY PO 08/04/17 09:00 08/04/17 09:25 (Cymbalta Dr) 120 mg DAILY PO 08/04/17 09:00 08/04/17 09:00 (Levaquin) 750 mg DAILY PO 08/04/17 09:00 08/04/17 09:26 (Spiriva Inh) 18 mcg BID INH 08/04/17 09:00 08/04/17 09:00 (Symbicort 160-4.5 Mcg Inh) 2 puff BID INH 08/04/17 09:00 08/04/17 09:00 (Proair Hfa Inh) 1 puff Q4H PRN INH 08/04/17 04:30 08/04/17 09:26 (Dilaudid Pf Inj) 0.5 mg Q4H PRN IV 08/04/17 11:30 (Tylenol) 650 mg Q6H PRN PO 08/04/17 08:30 (Percocet 5-325 Mg) 1 tab Q6H PRN PO 08/04/17 08:30 (Percocet 10-325 Mg) 1 tab Q6H PRN PO 08/04/17 08:30 08/04/17 09:26 (Xanax) 1 mg Q6H PRN PO 08/04/17 08:30 A/P Assessment and Plan 42-year-old female with a past medical history significant for lupus anticoagulant, asthma, hypertension, recurrent mastoiditis, and 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 Sepsis with Recurrent Mastoiditis: acute on chronic. Increasing left ear/head pain/pressure. Meets sepsis criteria with WBC 13.1K, HR 113, suspected source mastoiditis. -Temporal bone CT significant for possible minimal mastoiditis -Continue antibiotics with IV Rocephin, anticipate transition to p.o. antibiotics after 24 hours -Patient known to ENT Dr. Starr, will consult -Continue percocet prn pain and IV dilaudid prn breakthrough pain -Monitor for improvement Lupus anticoagulant -Continue Heparin sq MRSA cellulitis: chronic, s/p manager intermediate IV antibiotics as outpatient, now on po Levaquin -Continue patient's levaquin -Continue outpatient f/up with ID Dr. Peña and wound care Hypertension: chronic, BP fairly well controlled -continue patient's amlodipine 10mg daily Asthma: chronic, with some wheezing on exam -Continue home meds including Singulair, Spiriva, duonebs prn Anxiety: chronic -continue patient's xanax 1mg q6h prn DVT Prophylaxis: Heparin sq Discharge Planning Await eval by ENT. Further disposition to follow. Likely discharge tomorrow on po antibiotics. Katie Rodríguez PA-C August 04, 2017 9:00 am
[2017-08-04 09:20] VITALS: BP 124/76; PULSE 80; RESP 15; O2SAT 98
[2017-08-04] MEDS: DOCUSATE SODIUM 50 MG/SENNA 8.6 MG TAB PO SCH ×2 (09:26→22:53)
[2017-08-04] MEDS: oxyCODONE/ACETAMINOPHEN 10 MG/325 MG TAB PO PRN ×3 (09:26→22:56)
[2017-08-04] MEDS: LEVOFLOXACIN 750 MG TAB PO SCH (09:26)
[2017-08-04 09:33] VITALS: BP 114/55; PULSE 86; RESP 18; TEMP 97.9; O2SAT 94
[2017-08-04] MEDS ORDERED: RESP: ALBUTEROL 2.5 MG/IPRATROPIUM 0.5 MG NEB (PRN) NEB (12:00)
--- NOTE | 2017-08-04 14:23 | EKG ---
Date Performed: 08/04/2017 Time Performed: 00:15:50 PTAGE: 42 years EKG: Sinus rhythm INCOMPLETE RIGHT BUNDLE BRANCH BLOCK BORDERLINE ECG Since the PREVIOUS TRACING , no significant change noted PREVIOUS TRACIN05/07/2017 22.32 DOCTOR: Juanita Villegas Interpretating Date/Time 08/04/2017 14:18:41
[2017-08-04 16:01] VITALS: BP 129/61; PULSE 84; RESP 16; TEMP 100.4; O2SAT 98
[2017-08-04 20:15] VITALS: BP 134/63; PULSE 80; RESP 16; TEMP 98; O2SAT 92
[2017-08-05 00:23] VITALS: BP 164/81; PULSE 87; RESP 16; TEMP 98.1; O2SAT 93
[2017-08-05] MEDS: HYDROmorphone HCL PF 0.5 MG/0.5 ML SYRINGE IV PRN ×2 (00:41→09:00)
[2017-08-05 01:24] VITALS: PULSE 86; RESP 18; O2SAT 97
[2017-08-05 03:53] VITALS: BP 135/66; PULSE 77; RESP 16; TEMP 98.8; O2SAT 94
[2017-08-05] MEDS: cefTRIAXone INJ 2,000 MG in SODIUM CHLORIDE 0.9% INJ 100 ML IV SCH (05:00)
[2017-08-05] MEDS: HEPARIN SODIUM - SQ 10,000 UNITS/ML VIAL SQ SCH (05:01)
[2017-08-05 05:07] LABS: AUTOMATED NEUTROPHIL # 4.8 TH/MM3 (1.8-7.7); BASOPHIL # 0.2 TH/MM3 (0-0.2); BASOPHIL % 1.6 % (0.0-2.0); EOSINOPHIL # 0.6 TH/MM3 (0-0.4); EOSINOPHIL % 5.7 % (0.0-4.0); HEMOGLOBIN 12.1 GM/DL (11.6-15.3); LYMPH % 37.7 % (9.0-44.0); LYMPHOCYTE # 3.8 TH/MM3 (1.0-4.8); MEAN CELL VOLUME 74.7 FL (80.0-100.0); MEAN CORPUSCULAR HGB CONC 33.5 % (32.0-36.0); MEAN PLATELET VOLUME 7.5 FL (7.0-11.0); MONO % 7.3 % (0.0-8.0); MONOCYTE # 0.7 TH/MM3 (0-0.9); NEUT % 47.7 % (16.0-70.0); PLATELET COUNT 459 TH/MM3 (150-450); RED BLOOD COUNT 4.82 MIL/MM3 (4.00-5.30); RED CELL DISTRIBUTION WIDTH 16.3 % (11.6-17.2)
[2017-08-05 05:21] LABS: BICARBONATE 28.9 MEQ/L (21.0-32.0); CREATININE 0.71 MG/DL (0.50-1.00)
[2017-08-05 08:08] VITALS: BP 162/75; PULSE 89; RESP 18; TEMP 97.4; O2SAT 97
[2017-08-05] MEDS ORDERED: CLIN300C5 PO ×2 (08:48→13:51)
[2017-08-05] MEDS ORDERED: LACTCHW3 CHEW ×2 (08:49→13:51)
--- NOTE | 2017-08-05 08:49 | HHI.DCPOC ---
Discharge Care Plan Diagnosis: (1) Mastoiditis of left side Goals to Promote Your Health * To prevent worsening of your condition and complications * To maintain your health at the optimal level Directions to Meet Your Goals Take your medications as prescribed Follow your dietary instruction Follow activity as directed Keep your appointments as scheduled Take your immunizations and boosters as scheduled If your symptoms worsen call your PCP, if no PCP go to Urgent Care Center or Emergency Room Smoking is Dangerous to Your Health. Avoid second hand smoke Call the 24-hour hour crisis hotline for domestic abuse at Katie Rodríguez PA-C August 05, 2017 8:49 am
--- NOTE | 2017-08-05 08:51 | HHI.PR ---
Subjective Remarks Follow up for mastoiditis. The patient reports some continued left ear pain/ fullness however much improved compared to yesterday. Denies any fevers or chills. Tolerating oral intake. No abdominal pain, nausea, or vomiting. She has no other medical complaints at this time. Objective Vitals Vital Signs Date Time Temp Pulse Resp B/P (MAP) Pulse Ox O2 Delivery O2 Flow Rate FiO2 08/05/17 08:08 97.4 89 18 162/75 (104) 97 08/05/17 03:53 98.8 77 16 135/66 (89) 94 08/05/17 01:24 86 18 97 08/05/17 00:23 98.1 87 16 164/81 (108) 93 08/04/17 20:15 98.0 80 16 134/63 (86) 92 08/04/17 16:01 100.4 84 16 129/61 (83) 98 08/04/17 09:33 08/04/17 09:33 97.9 86 18 114/55 (74) 94 08/04/17 09:20 80 15 124/76 (92) 98 I/O 08/04/17 08/04/17 08/04/17 08/05/17 08/05/17 08/05/17 07:00 15:00 23:00 07:00 15:00 23:00 Intake Total 100 ml 100 ml Balance 100 ml 100 ml Intake IV Total 100 ml 100 ml Result Diagram: 08/05/17 0427 08/05/17 0427 Imaging Last Impressions Temporal Bone CT 08/04/17 0000 Signed Impressions: Service Date/Time: Thursday, August 03, 2017 23:41 - CONCLUSION: 1. There may be a minimal mastoiditis inferiorly on the left with some fluid density in the most inferior air cells. 2. Otherwise negative Judson Lamar MD Abdomen/Pelvis CT 08/03/17 1241 Signed Impressions: Service Date/Time: Thursday, August 03, 2017 23:43 - CONCLUSION: 1. Diffuse hepatic fatty infiltration. 2. Faint stranding in the subcutaneous tissues midline in the infraumbilical anterior abdominal wall. Findings are nonspecific and could represent focal contusion or early cellulitis. 3. Patient is status post hysterectomy. Both ovaries are present with a 3.2 cm cyst in the left ovary. 4. Minimal atelectasis/scarring in the left lingula and left lung base. Lung bases are otherwise clear Judson Lamar MD Head CT 08/03/172316 Signed Impressions: Service Date/Time: Thursday, August 03, 2017 23:41 - CONCLUSION: Negative exam. No change from prior. Judson Lamar MD Chest X-Ray 08/03/172316 Signed Impressions: Service Date/Time: Thursday, August 03, 2017 23:27 - CONCLUSION: No acute cardiopulmonary process. Judson Lamar MD Objective Remarks GENERAL: Well-nourished, well-developed middle aged female patient in [facility]. SKIN: Warm and dry. No rash. HEENT: Normocephalic. Atraumatic.Pupils equal and round. Mucous membranes pink and moist. Left ear tympanic membrane visualized with +cone of light, no TM erythema or bulging. Left mastoid minimally tender to palpation with any significant edema/bulging. NECK: Supple. Trachea midline. No palpable lymphadenopathy. CARDIOVASCULAR: Regular rate and rhythm. No murmur appreciated. RESPIRATORY: No accessory muscle use. Mild expiratory wheezing at bases. Breath sounds equal bilaterally. GASTROINTESTINAL: Abdomen soft, non-tender, nondistended. Normoactive bowel sounds x4. MUSCULOSKELETAL: No obvious deformities. Extremities without clubbing, cyanosis , or edema. NEUROLOGICAL: Awake and alert. No obvious cranial nerve deficits. Motor grossly within normal limits.Normal speech. PSYCHIATRIC: Appropriate mood and affect; insight and judgment normal. 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 Sepsis with Recurrent Mastoiditis: acute on chronic. Increasing left ear/head pain/pressure. Meets sepsis criteria with WBC 13.1K, HR 113, suspected source mastoiditis. -Temporal bone CT significant for possible minimal mastoiditis -Continue antibiotics with IV Rocephin, anticipate transition to p.o. antibiotics after 24 hours -Patient known to ENT Dr. Starr, consulted -Continue percocet prn pain and IV dilaudid prn breakthrough pain -Monitor for improvement -Seen by Dr. Mata ENT, recommends 2 weeks of po antibiotics, outpatient f/ up with Dr. Starr Lupus anticoagulant -Continue Heparin sq MRSA cellulitis: chronic, s/p shelter IV antibiotics as outpatient, now on po Levaquin -Continue patient's levaquin -Continue outpatient f/up with ID Dr. Peña and wound care Hypertension: chronic, BP fairly well controlled -continue patient's amlodipine 10mg daily Asthma: chronic, with some wheezing on exam -Continue home meds including Singulair, Spiriva, duonebs prn Anxiety: chronic -continue patient's xanax 1mg q6h prn DVT Prophylaxis: Heparin sq Discharge Planning Discharge patient to home Condition on discharge: Stable Heart Healthy Diet as tolerated Ad Anca activity Rx written: Clinda 300mg tid [id number], Lactinex tid [id number] Follow-up with primary care physician Dr. Danielson, and ENT Katie Perez PA-C August 05, 2017 8:51 am
[2017-08-05] MEDS: DULoxetine HCl DR 60 MG CAP PO SCH (08:59)
[2017-08-05] MEDS: LEVOFLOXACIN 750 MG TAB PO SCH (08:59)
[2017-08-05] MEDS: DOCUSATE SODIUM 50 MG/SENNA 8.6 MG TAB PO SCH (08:59)
[2017-08-05] MEDS: SODIUM CHLORIDE 0.9% FLUSH 10 ML FLUSH IV FLUSH SCH (08:59)
[2017-08-05] MEDS: TIOTROPIUM BROMIDE 18 MCG INH INH SCH (09:01)
[2017-08-05] MEDS: BUDESONIDE-FORMOTEROL 160/4.5 MCG INHALER INH SCH (09:01)
--- NOTE | 2017-08-05 09:54 | MB ---
cc: Fabio Mata MD DATE: 08/05/2017 CHIEF COMPLAINT: Left ear pain. HISTORY OF PRESENT ILLNESS: The patient is a pleasant 42-year-old female seen as an outpatient by Dr. Starr a few weeks ago with left-sided facial pain. Dr. Starr was involved with her middle ear issue with her ear tube surgery in the past, which has since come out. She has no drainage of her ear, but she does note left postauricular pain and broad facial pain. CAT scan revealed only scant fluid in her left mastoid and no fluid in the middle ear space and certainly no coalescence of the mastoid air cells not consistent at all with any kind of severe mastoid infection. Clinical examination revealed the bilateral ears were completely clear and there was no evidence of postauricular edema or erythema consistent with any kind of chronic mastoiditis. Facial exam is otherwise normal except for tenderness subjectively on the left side of the patient's face. ASSESSMENT: Left facial pain not any coalescent mastoiditis, not likely related to the ear structures. PLAN: The patient is to continue her 2 weeks of antibiotics for possible low grade generalized infection. I also recommend the patient see neurology for possible atypical facial pains. Lower on the list of probability would be a drug-seeking behavior. However, I have not elicited any reasons as to why she would have that, so that is certainly not high on my differential diagnosis. Regardless, the patient is to followup as an outpatient with ENT in 2-4 weeks, and see neurology for possible atypical facial pain earlier. Fabio Mata MD PCC/DL , 09:37 AM , 09:54 AM
== END 2017-08-05 10:41 | disposition home or self-care (01) ==
LOC: NEPC 22:27 → NEDA 08-04 02:33 → UNDOADMIN 08-04 02:33 → INTOOBSV 08-04 03:23 → NEDA 08-04 03:23 → NEDH 08-04 08:29 → NEPGCP 08-04 15:44
PROVIDERS: ADMIT Hospitalist; ATTEND Hospitalist
DX: H70.002 Acute mastoiditis without complications, left ear (principal); A41.9 Sepsis, unspecified organism; L03.115 Cellulitis of right lower limb; B95.62 Methicillin resistant Staphylococcus aureus infection as the cause of diseases classified elsewhere; D68.62 Lupus anticoagulant syndrome; J45.909 Unspecified asthma, uncomplicated; I10 Essential (primary) hypertension; R51 Headache; R82.99 Other abnormal findings in urine; K21.9 Gastro-esophageal reflux disease without esophagitis; D64.9 Anemia, unspecified; F32.9 Major depressive disorder, single episode, unspecified; M19.90 Unspecified osteoarthritis, unspecified site; K76.0 Fatty (change of) liver, not elsewhere classified; G47.30 Sleep apnea, unspecified; Z72.0 Tobacco use; F41.9 Anxiety disorder, unspecified; Z90.710 Acquired absence of both cervix and uterus
CPT/HCPCS: 70450; 70480; 71045; 74176; 80048; 80053; 81001; 83605; 85025; 85610; 85730; 87040; 87086; 93005; 96365; 96366; 96372; 96375; 96376; 99285; G0378; J0696; J1170; J1644; J2405

== ENCOUNTER 2018-01-17 10:46 | Observation (INO) ==
[2018-01-17] MEDS ORDERED: Lidocaine 4% Top Soln 50 ML Bottle TOPICAL ONE (11:41)
[2018-01-17] MEDS ORDERED: MethylPREDNISolone Sod Succinate Inj 125 MG/2 ML Vial IM ONE (11:41)
--- NOTE | 2018-01-17 12:08 | ED ---
HPI General Chief complaint: Ear Stated complaint: head pain left side Time Seen by Provider: 01/17/18 11:35 Source: patient Mode of arrival: ambulatory Limitations: no limitations History of Present Illness HPI narrative: Pt is a 42 yo female here today for L ear pain. She gets frequent infections in same ear due to multiple surgeries on it in the past. Her ENT is dr. starr. She has not taken anything to make pain better and palpation makes it worse. She reports yellowish drainage and pain "in the bone behind my ear". Unsure of fever status. Pt has multiple allergies. History chronic pain, Depression, anxiety, asthma, allergies. Related Data Home Medications Medication Instructions Recorded Confirmed albuterol sulfate 1.25 mg INHALATION QID PRN 10/24/17 01/17/18 alprazolam [Xanax] 1 mg PO BID 10/24/17 01/17/18 cetirizine [Zyrtec] 10 mg PO DAILY 10/24/17 01/17/18 duloxetine [Cymbalta] 120 mg PO DAILY 10/24/17 01/17/18 fluticasone-salmeterol [Advair 1 inh INHALATION BID 10/24/17 01/17/18 Diskus] lansoprazole [Prevacid] 30 mg PO DAILY 10/24/17 01/17/18 montelukast [Singulair] 10 mg PO QPM 10/24/17 01/17/18 oxycodone-acetaminophen [Percocet] 1 tab PO Q4H PRN 10/24/17 01/17/18 amlodipine 10 mg PO DAILY 11/30/17 01/17/18 Allergies Allergy/AdvReac Type Severity Reaction Status Date / Time aspirin Allergy Severe WHEEZES Verified 11/30/17 00:30 bismuth subsalicylate Allergy Severe Anaphylaxis Verified 11/30/17 00:30 diatrizoate meglumine Allergy Severe Anaphylaxis Verified 11/30/17 00:30 diphenhydramine Allergy Severe Respiratory Verified 11/30/17 00:30 Failure fentanyl Allergy Severe itching Verified 11/30/17 00:30 gadobenic acid Allergy Severe Anaphylaxis Verified 11/30/17 00:30 gadodiamide Allergy Severe Anaphylaxis Verified 11/30/17 00:30 gadoteridol Allergy Severe Anaphylaxis Verified 11/30/17 00:30 ibuprofen Allergy Severe Respiratory Verified 11/30/17 00:30 Failure iodixanol Allergy Severe Anaphylaxis Verified 11/30/17 00:30 iohexol Allergy Severe Anaphylaxis Verified 11/30/17 00:30 mesalamine Allergy Severe Anaphylaxis Verified 11/30/17 00:30 metoclopramide Allergy Severe Anaphylaxis Verified 11/30/17 00:30 penicillin G Allergy Severe THROAT Verified 11/30/17 00:30 CLOSES Sulfa (Sulfonamide Allergy Severe Wheezing Verified 11/30/17 00:30 Antibiotics) tramadol AdvReac Severe Wheezing Verified 11/30/17 00:30 MACADAMIA NUTS Allergy Severe Wheezing Uncoded 10/24/17 00:38 Review of Systems ROS: all other systems reviewed are negative [facility] Social History Social History Substance History: No History of Abuse Second Hand Smoke Exposure: No Smoking Status: Light tobacco smoker Tobacco Type: Cigarettes How Often Do You Have a Drink Containing Alcohol: Never Recent Out of Country Travel within the Last 8 Weeks: No Immunization History Tetanus Immunization: Unsure Exam Narrative Exam Narrative: GENERAL: Pt awake, alert, oriented, disgruntled. SKIN: Focused skin assessment warm/dry. l ear canal with inflammation and yellowish discharge. HEAD: Atraumatic. Normocephalic. EYES: Pupils equal and round. No scleral icterus. No injection or drainage. ENT: No nasal bleeding or discharge. Mucous membranes pink and moist. TM on L with mild erythema and bulging. No rupture. R TM wnl. Mastoid pain behind L ear with palpation. Ear canal with inflammation and erythema on L. NECK: Trachea midline. No JVD. CARDIOVASCULAR: Regular rate and rhythm. No murmur appreciated. RESPIRATORY: No accessory muscle use. Clear to auscultation. Breath sounds equal bilaterally. GASTROINTESTINAL: Abdomen soft, non-tender, nondistended. Hepatic and splenic margins not palpable. MUSCULOSKELETAL: No obvious deformities. No clubbing. No cyanosis. No edema. NEUROLOGICAL: Awake and alert. No obvious cranial nerve deficits. Motor grossly within normal limits. Normal speech. PSYCHIATRIC: Appropriate mood and affect; insight and judgment normal. Course Initial Documented Vital Signs Temperature 97.5 F L 01/17/18 10:49 Pulse Rate 115 H 01/17/18 10:49 Respiratory Rate 15 10/16/18 10:49 Blood Pressure 158/88 H 01/17/18 10:49 Pulse Oximetry 98 01/17/18 10:49 Last Documented Vital Signs Temperature 98.7 F 01/17/18 16:00 Pulse Rate 100 H 01/17/18 16:00 Respiratory Rate 16 01/17/18 16:34 Blood Pressure 170/95 H 01/17/18 16:00 Pulse Oximetry 97 01/17/18 16:00 Medical Decision Making TULIO Attestation TULIO supervised visit: Yes Attestation: I, Dr. Schwarz, have reviewed the advance practice practitioner's documentation and am in agreement, met with the patient face to face, made the diagnosis, and the medical decision making was done by me. *My assessment and Findings: Patient seen and examined by me in addition to Shanelle Campos, 42-year-old female history of mastoiditis in the past, presents emergency department with swelling and pain on her left face and ear for the past 24-48 hours. Has a history of chronic otitis media and recurrent mastoiditis. My initial evaluation the patient is sleeping soundly, aroused to voice, she states she is having extreme pain interrupts multiple times to discuss her pain. She does have an elevated white blood cell count but normal differential, she appears nontoxic. She does have some mastoid tenderness but there is no protrusion of the ear, no overlying cellulitis. Patient is afebrile here. She is mildly tachycardic. She states she been taking oxycodone at home prescribed to her by Dr. Cabezas and it is not helping. I have added a dose of Dilaudid PO here, CT scan of her mastoids performed without IV contrast the patient has an allergy, he does show signs consistent with mastoiditis. Patient signs symptoms were to suggest an acute mastoiditis and I have ordered a dose of vancomycin and Azactam, she will be admitted to the hospital, awaiting callback from SANDRA and Dr. Starr who knows her. Shortly after my encounter with the patient at the end of her workup was informed by nursing that patient refused her PO Dilaudid because it was PO. We will continue to monitor. D/W Dr. Anderson who will admit. [facility] Narrative Medical decision making narrative: Patient is a 42-year-old female who is here today for left ear pain. She has had multiple surgeries on the affected ear. She states she was on Levaquin a couple months ago the infection went away but now is back and it feels worse. She is tender to preauricular and posterior auricular nodes also over her mastoid bone. She has multiple allergies a difficult to get her medicated for pain. I did check E force and she did have oxycodone/acetaminophen fill on 01/06/[address] Cabezas. She did not mention this to me prior to me finding it on E force. Once I mentioned this to her she said that she took extra medication prior to arrival and it did not help with pain and that she would like Dilaudid or morphine and to see a "real doctor". Prior to this I did order a CBC, CMP urine and CT temporal bones with mastoid views. She kicked out the registration person and is also very sarcastic and rude to the nurse. I spoke with Dr. Schwarz about this who said absolutely no to the Dilaudid and the morphine but he did say that he would come see her when he is done seeing patients in his pod. Medical Screen Exam Complete: Yes Emergency Medical Condition: Yes Differential Diagnosis Differential Diagnosis: Otitis media/externa, mastoiditis Lab Data Result diagrams: 01/17/18 12:15 01/17/18 12:15 POC Results POC Urine Results Negative Lab Results 01/17/18 01/17/18 01/17/18 Range/Units 12:15 12:15 15:21 WBC 13.1 H (4.0-11.0) th/mm3 RBC 4.97 (4.00-5.30) mil/mm3 Hgb 11.8 (11.6-15.3) gm/dL Hct 36.7 (35.0-46.0) % MCV 73.9 L (80.0-100.0) fL MCH 23.7 L (27.0-34.0) pg MCHC 32.1 (32.0-36.0) % RDW 17.3 H (11.6-17.2) % Plt Count 501 H (150-450) th/mm3 MPV 7.3 (7.0-11.0) fL Neut % (Auto) 57.3 (16.0-70.0) % Lymph % (Auto) 32.2 (9.0-44.0) % [place] % (Auto) 6.7 (0.0-8.0) % Eos % (Auto) 2.5 (0.0-4.0) % Baso % (Auto) 1.3 (0.0-2.0) % Neut # (Auto) 7.5 (1.8-7.7) th/mm3 Lymph # (Auto) 4.2 (1.0-4.8) th/mm3 [place] # (Auto) 0.9 (0.0-0.9) th/mm3 Eos # (Auto) 0.3 (0.0-0.4) th/mm3 Baso # (Auto) 0.2 (0.0-0.2) th/mm3 WBC Differential . Differential Comment Auto diff final Sodium 135 L (136-145) meq/L Potassium 3.7 (3.5-5.1) meq/L Chloride 101 (98-107) meq/L Carbon Dioxide 26.0 (21.0-32.0) meq/L Anion Gap 8 (5-15) meq/L BUN 6 L (7-18) mg/dL Creatinine 0.61 (0.50-1.00) mg/dL Estimated GFR Greater than 89 (>89) mL/min Random Glucose 110 H (74-106) mg/dL Lactic Acid 2.9 H (0.4-2.0) mmol/L Calcium 8.6 (8.5-10.1) mg/dL Total Bilirubin Less than 0.1 L (0.2-1.0) mg/dL AST 21 (15-37) U/L ALT 25 (10-53) U/L Alkaline Phosphatase 166 H (45-117) U/L Total Protein 7.6 (6.4-8.2) g/dL Albumin 3.3 L (3.4-5.0) g/dL Imaging Data Radiologist's impression: Temporal Bone CT 01/17/18 12:18 CONCLUSION: 1. Findings most consistent with left-sided mastoiditis and otitis media. 2. Subcentimeter preauricular lymph nodes bilaterally, likely reactive. 3. Postsurgical features in the left anterior soft tissues. Discharge Plan Discharge Disposition Patient Disposition: 30 Still Patient Discharge Condition Condition: Stable Discharge Details Diagnosis: Acute mastoiditis Physicians Team ED Provider: Enio Schwarz ED Midlevel Provider: Shanelle Campos Primary Care Provider: Do Damaso Archuleta Attending Provider: Angelica Anderson Other Providers: Zoran Lynne ED Status: Left Department Discharge Information Discharge Date/Time: 01/17/18 17:40
[2018-01-17 12:38] LABS: Baso # (Auto) 0.2 th/mm3 (0.0-0.2); Baso % (Auto) 1.3 % (0.0-2.0); Eos # (Auto) 0.3 th/mm3 (0.0-0.4); Eos % (Auto) 2.5 % (0.0-4.0); Hematocrit 36.7 % (35.0-46.0); Hemoglobin 11.8 gm/dL (11.6-15.3); Lymph # (Auto) 4.2 th/mm3 (1.0-4.8); Lymph % (Auto) 32.2 % (9.0-44.0); Mean Corpuscular HGB Conc 32.1 % (32.0-36.0); Mean Corpuscular Hemoglobin 23.7 pg (27.0-34.0); Mean Corpuscular Volume 73.9 fL (80.0-100.0); Mean Platelet Volume 7.3 fL (7.0-11.0); Mono # (Auto) 0.9 th/mm3 (0.0-0.9); Mono % (Auto) 6.7 % (0.0-8.0); Neut # (Auto) 7.5 th/mm3 (1.8-7.7); Neut % (Auto) 57.3 % (16.0-70.0); Platelet Count 501 th/mm3 (150-450); Red Blood Count 4.97 mil/mm3 (4.00-5.30); Red Cell Distribution Width 17.3 % (11.6-17.2); White Blood Count 13.1 th/mm3 (4.0-11.0)
[2018-01-17 12:49] LABS: Alkaline Phosphatase 166 U/L (45-117); Total Protein 7.6 g/dL (6.4-8.2)
[2018-01-17 12:51] LABS: Alanine Aminotransferase 25 U/L (10-53); Albumin 3.3 g/dL (3.4-5.0); Anion Gap 8 meq/L (5-15); Aspartate Aminotransferase 21 U/L (15-37); Blood Urea Nitrogen 6 mg/dL (7-18); Calcium 8.6 mg/dL (8.5-10.1); Chloride 101 meq/L (98-107); Glomerular Filtration Rate Greater Than 89 mL/min (>89); Glucose,Random 110 mg/dL (74-106); Potassium 3.7 meq/L (3.5-5.1); Sodium 135 meq/L (136-145)
--- NOTE | 2018-01-17 14:41 | CT ---
EXAM DATE: 01/17/2018 12:55 PM EDT AGE/SEX: 42 years / Female INDICATIONS: Left head pain, swelling and tenderness. Left ear drainage. CLINICAL DATA: This is the patient's initial encounter. Patient reports that signs and symptoms have been present for 2 days and indicates a pain score of 7/10. MEDICAL/SURGICAL HISTORY: Asthma. Lupus. Hysterectomy. Left ear reconstruction. RADIATION DOSE: 56.93 CTDI (mGy) COMPARISON: [facility] [place], CT TEMPORAL BONE W/O CONTRAST, 08/03/2017. . TECHNIQUE: Thin section acquisition was performed without contrast in the coronal and axial planes u sing a multirow detector CT scanner. Using automated exposure control and adjustment of the mA and/o r kV according to patient size, radiation dose was kept as low as reasonably achievable to obtain opt imal diagnostic quality images. DICOM format image data is available electronically for review and c omparison. FINDINGS: RIGHT TEMPORAL BONE: Ossicles: The ossicles are intact. The oval window niche is intact. Mastoid Air Cells: Well aerated. No sclerotic or opacified air cells are seen. The aditus is intac t. Middle Ear: The epitympanum and hypotympanum are intact. Prussak's space and scutum are intact. The oval and round window is intact. Labyrinth: The cochlea and semicircular canals are normal in configuration without sclerosis. Internal Acoustic Canal: Normal in size without erosion. The cerebellar-pontine angle is intact. Jugular Fossa: Normal in size and position. Facial Canal: The tympanic, genu and descending portions are intact. External Acoustic Canal: The bony and cartilaginous portions are intact. LEFT TEMPORAL BONE: Ossicles: The ossicles are intact. The oval window niche is intact. Mastoid Air Cells: Diffuse opacification of the mastoid air cells Middle Ear: The epitympanum and hypotympanum are intact. Prussak's space and scutum are intact. The oval and round window is intact. Labyrinth: The cochlea and semicircular canals are normal in configuration without sclerosis. Internal Acoustic Canal: Fluid extends to the internal acoustic canal. No evidence for erosion. Jugular Fossa: Normal in size and position. Facial Canal: The tympanic, genu and descending portions are intact. External Acoustic Canal: Fluid is noted in the external auditory canal. The bony and cartilaginous p ortions are grossly intact. Soft Tissues: Postsurgical soft tissue changes in the region of the left ureter. There are several sl ightly prominent preauricular lymph nodes noted bilaterally. CONCLUSION: 1. Findings most consistent with left-sided mastoiditis and otitis media. 2. Subcentimeter preauricular lymph nodes bilaterally, likely reactive. 3. Postsurgical features in the left anterior soft tissues. Electronically signed by: Jeff Martínez MD 01/17/2018 2:40 PM EDT
[2018-01-17] MEDS ORDERED: Vancomycin Inj 1 GM/200 ML PIGGYBACK IV.SIG ONE (15:02)
[2018-01-17] MEDS ORDERED: Sod Chloride 0.9% Inj 1,000 ML IV.SIG SCH (15:15)
[2018-01-17] MEDS ORDERED: Bisacodyl 10 MG Supp RECTAL PRN (15:16)
[2018-01-17] MEDS ORDERED: HYDROmorphone PF Inj 2 MG/ML Vial IV.PUSH ONE (15:16)
[2018-01-17] MEDS ORDERED: Acetaminophen 325 MG Tablet PO PRN (15:16)
--- NOTE | 2018-01-17 15:24 | P.HP ---
History of Present Illness Service: Hospitalist Primary Care Physician: Do Damaso Archuleta Chief Complaint: Left ear, left sided headache History of Present Illness: Ms. Avila is a pleasant 42 year old female with a history of chronic left otitis media, mastoiditis who presents to the ED due to intractable left sided headache, ear pain. She had some subjective fever as well. Patient denies any chest pain, cough, abdominal pain. No changes in bowel or bladder habits. Temporal bone CT shows left sided otitis media and left sided mastoiditis. She was tachycardic, had elevated BP. WBC 13.1K. Review of Systems All other systems reviewed negative except as stated in HPI PMFSH - History History Provided By: Patient - Medical History Medical History: Medical History (Last Reviewed 01/17/18 @ 11:05 by Cony Colon RN) Asthma Chronic neck and back pain H/O: hysterectomy Lupus - Surgical History Surgical History: Surgical History (Last Reviewed 01/17/18 @ 11:05 by Cony Colon RN) History of carpal tunnel surgery History of ear surgery Hx of sinus surgery - Tobacco History Second Hand Smoke Exposure: No Tobacco Use In Past 30 Days: Yes Smoking Status: Light tobacco smoker Tobacco Type: Cigarettes - Alcohol History How Often Do You Have a Drink Containing Alcohol: Never - Substance Use History Substance History: No History of Abuse - Travel History Recent Travel Out of the Country Within the Last 8 Weeks: No - Immunization History Tetanus Immunization: Unsure Medications and Allergies Active Medications: Active Medications Acetaminophen (Tylenol) 650 mg PO Q4H PRN PRN Reason: Fever, headache, pain 1-4 Al Hydroxide/Mg Hydroxide (Milk Of Magnesia Liq) 30 ml PO Q12H PRN PRN Reason: Mild Constipation Bisacodyl (Dulcolax Supp) 10 mg RECTAL DAILY PRN PRN Reason: SEVERE CONSITIPATION Aztreonam 1,000 mg/ Sodium (Chloride) 100 mls @ 200 mls/hr IV.SIG ONCE ONE Stop: 01/17/18 15:31 Vancomycin/Sodium Chloride (Vancomycin Inj) 1 gm in 200 mls @ 200 mls/hr IV.SIG ONCE ONE Stop: 01/17/18 16:01 Sodium Chloride (Ns Inj) 1,000 mls @ 0 mls/hr IV.SIG BOLUS ANÍBAL Lactulose (Lactulose Liq) 30 ml PO DAILY PRN PRN Reason: SEVERE CONSITIPATION Ondansetron HCl (Zofran Inj) 4 mg IV.PUSH Q6H PRN PRN Reason: NAUSEA OR VOMITING Oxycodone/Acetaminophen (Percocet 7.5/325 Mg) 1 tab PO Q6H PRN PRN Reason: pain 5-10 Sennosides (Senokot) 17.2 mg PO Q12H PRN PRN Reason: Moderate Constipation Allergies Allergy/AdvReac Type Severity Reaction Status Date / Time aspirin Allergy Severe WHEEZES Verified 11/30/17 00:30 bismuth subsalicylate Allergy Severe Anaphylaxis Verified 11/30/17 00:30 diatrizoate meglumine Allergy Severe Anaphylaxis Verified 11/30/17 00:30 diphenhydramine Allergy Severe Respiratory Verified 11/30/17 00:30 Failure fentanyl Allergy Severe itching Verified 11/30/17 00:30 gadobenic acid Allergy Severe Anaphylaxis Verified 11/30/17 00:30 gadodiamide Allergy Severe Anaphylaxis Verified 11/30/17 00:30 gadoteridol Allergy Severe Anaphylaxis Verified 11/30/17 00:30 ibuprofen Allergy Severe Respiratory Verified 11/30/17 00:30 Failure iodixanol Allergy Severe Anaphylaxis Verified 11/30/17 00:30 iohexol Allergy Severe Anaphylaxis Verified 11/30/17 00:30 mesalamine Allergy Severe Anaphylaxis Verified 11/30/17 00:30 metoclopramide Allergy Severe Anaphylaxis Verified 11/30/17 00:30 penicillin G Allergy Severe THROAT Verified 11/30/17 00:30 CLOSES Sulfa (Sulfonamide Allergy Severe Wheezing Verified 11/30/17 00:30 Antibiotics) tramadol AdvReac Severe Wheezing Verified 11/30/17 00:30 MACADAMIA NUTS Allergy Severe Wheezing Uncoded 10/24/17 00:38 Home Medications Medication Instructions Recorded Confirmed Type albuterol sulfate 1.25 mg INHALATION QID PRN 10/24/17 01/17/18 History alprazolam [Xanax] 1 mg PO BID 10/24/17 01/17/18 History cetirizine [Zyrtec] 10 mg PO DAILY 10/24/17 01/17/18 History duloxetine [Cymbalta] 120 mg PO DAILY 10/24/17 01/17/18 History fluticasone-salmeterol [Advair 1 inh INHALATION BID 10/24/17 01/17/18 History Diskus] lansoprazole [Prevacid] 30 mg PO DAILY 10/24/17 01/17/18 History montelukast [Singulair] 10 mg PO QPM 10/24/17 01/17/18 History oxycodone-acetaminophen [Percocet] 1 tab PO Q4H PRN 10/24/17 01/17/18 History amlodipine 10 mg PO DAILY 11/30/17 01/17/18 History Exam Vital signs: Vital Signs 01/17/18 10:49 01/17/18 11:00 Temperature 97.5 F L 97.5 F L Pulse Rate 115 H 115 H Respiratory Rate 15 16 Blood Pressure 158/88 H 158/88 H Pulse Oximetry 98 98 Intake & Output 01/16/18 01/17/18 01/17/18 18:59 06:59 18:59 Weight 113.398 kg Narrative: GENERAL: This is a well-nourished, well-developed patient, in no apparent distress. SKIN: No rashes, ecchymoses or lesions. Warm and dry. HEAD: Atraumatic. Normocephalic. Left upper head area somewhat tender to palpation, some tenderness behind left ear. No erythema, drainage noted. EYES: Pupils equal round and reactive. No injection or drainage. ENT: Nose without bleeding, purulent drainage or septal hematoma. Airway patent. NECK: Trachea midline. No lymphadenopathy. Supple, nontender, no meningeal signs. CARDIOVASCULAR: Regular rhythm, tachycardic without murmurs, gallops, or rubs. No JVD. RESPIRATORY: Clear to auscultation. Breath sounds equal bilaterally. No wheezes , rales, or rhonchi. GASTROINTESTINAL: Abdomen soft, non-tender, nondistended. No guarding. MUSCULOSKELETAL: Extremities without clubbing, cyanosis, or edema. NEUROLOGICAL: Awake and alert. Cranial nerves II through XII intact. No focal neurological deficits. Normal speech. Results - Labs CBC & Chem 7: 01/17/18 12:15 01/17/18 12:15 Labs: Laboratory Results - last 24 hr 01/17/18 01/17/18 12:15 12:15 WBC 13.1 H RBC 4.97 Hgb 11.8 Hct 36.7 MCV 73.9 L MCH 23.7 L MCHC 32.1 RDW 17.3 H Plt Count 501 H MPV 7.3 Neut % (Auto) 57.3 Lymph % (Auto) 32.2 [place] % (Auto) 6.7 Eos % (Auto) 2.5 Baso % (Auto) 1.3 Neut # (Auto) 7.5 Lymph # (Auto) 4.2 [place] # (Auto) 0.9 Eos # (Auto) 0.3 Baso # (Auto) 0.2 WBC Differential . Differential Comment Auto diff final Sodium 135 L Potassium 3.7 Chloride 101 Carbon Dioxide 26.0 Anion Gap 8 BUN 6 L Creatinine 0.61 Estimated GFR Greater than 89 Random Glucose 110 H Calcium 8.6 Total Bilirubin Less than 0.1 L AST 21 ALT 25 Alkaline Phosphatase 166 H Total Protein 7.6 Albumin 3.3 L - Imaging Impressions Temporal Bone CT 01/17/18 12:18 CONCLUSION: 1. Findings most consistent with left-sided mastoiditis and otitis media. 2. Subcentimeter preauricular lymph nodes bilaterally, likely reactive. 3. Postsurgical features in the left anterior soft tissues. Caprini VTE Risk Assessment Caprini VTE Risk Assessment: No/Low Risk (score <= 1) Caprini Risk Assessment Model: Point Value = 1 Point Value = 2 Point Value = 3 Point Value = 5 Age 41-60 Minor surgery BMI > 25 kg/m2 Swollen legs Varicose veins or History of unexplained or recurrent spontaneous Oral contraceptives or hormone replacement Sepsis (< 1 month) Serious lung disease, including pneumonia (< 1 month) Abnormal pulmonary function Acute myocardial infarction Congestive heart failure (< 1 month) History of inflammatory bowel disease Medical patient at bed rest Age 61-74 Arthroscopic surgery Major open surgery (> 45 min) Laparoscopic surgery (> 45 min) Malignancy Confined to bed (> 72 hours) Immobilizing plaster cast Central venous access Age >= 75 History of VTE Family history of VTE Factor V Leiden Prothrombin 45029T Lupus anticoagulant Anticardiolipin antibodies Elevated serum homocysteine Heparin-induced thrombocytopenia Other congenital or acquired thrombophilia Stroke (< 1 month) Elective arthroplasty Hip, pelvis, or leg fracture Acute spinal cord injury (< 1 month) Prophylaxis Regimen: Total Risk Factor Score Risk Level Prophylaxis Regimen 0-1 Low Early ambulation 2 Moderate Order ONE of the following: *Sequential Compression Device (SCD) *Heparin 5000 units SQ BID 3-4 Higher Order ONE of the following medications: *Heparin 5000 units SQ TID *Enoxaparin/Lovenox 40 mg SQ daily (WT < 150 kg, CrCl > 30 mL/min) *Enoxaparin/Lovenox 30 mg SQ daily (WT < 150 kg, CrCl > 10-29 mL/min) *Enoxaparin/Lovenox 30 mg SQ BID (WT < 150 kg, CrCl > 30 mL/min) AND/OR *Sequential Compression Device (SCD) 5 or more Highest Order ONE of the following medications: *Heparin 5000 units SQ TID (Preferred with Epidurals) *Enoxaparin/Lovenox 40 mg SQ daily (WT < 150 kg, CrCl > 30 mL/min) *Enoxaparin/Lovenox 30 mg SQ daily (WT < 150 kg, CrCl > 10-29 mL/min) *Enoxaparin/Lovenox 30 mg SQ BID (WT < 150 kg, CrCl > 30 mL/min) AND *Sequential Compression Device (SCD) Assessment and Plan - Plan Ms. Avila is a pleasant 42 year old female with a history of chronic otitis media who presents to the ED due to left ear, left sided headache and intractable pain. Patient was found to have tachycardia, elevated BP, leukocytosis. Acute mastoiditis, Left side otitis media -ENT consulted -Pain control with Acetaminophen, Percocet and Dilaudid IV PRN -Patient came in with intractable pain. Tachycardia, elevated BP maybe due to pain -Will start Cipro drops for the left ear. Hx of Lupus Allergies Anxiety/Depression - Continue Cybalta, Xanax. - Continue home meds for allergies Hypertension - Continue Amlodipine Full code. SCDS.
[2018-01-17] MEDS ORDERED: HYDROmorphone PF Inj 0.5 MG/0.5 ML Syringe IV.PUSH ONE (19:00)
[2018-01-17] MEDS: HYDROmorphone PF Inj 2 MG/ML Vial IV.PUSH PRN (19:45)
[2018-01-17] MEDS: Ciprofloxacin 0.3% Opth Drops 2.5 ML Bottle RIGHT EAR SCH (19:46)
[2018-01-17] MEDS ORDERED: Vancomycin Inj 1,000 MG in Sodium Chlor 0.9% Inj 250 ML IV.SIG ONE (20:00)
[2018-01-17] MEDS ORDERED: Non-Formulary Drug (Fluticasone-Salmeterol [Advair Diskus] 1 INH) INHALATION SCH (21:00)
[2018-01-17] MEDS: Budesonide-Formoterol 160/4.5 MCG 6 GM Inhaler INH SCH (21:10)
[2018-01-18] MEDS: HYDROmorphone PF Inj 2 MG/ML Vial IV.PUSH PRN ×3 (00:16→10:00)
[2018-01-18 07:29] VITALS: PULSE 75
[2018-01-18] MEDS ORDERED: Clindamycin 900 mg/NS Premix 900 MG/50 ML PIGGYBACK IV.SIG SCH ×2 (08:45→18:00)
[2018-01-18] MEDS ORDERED: amLODIPine 10 MG Tablet PO SCH (09:00)
[2018-01-18] MEDS ORDERED: Duloxetine 60 MG DR Capsule PO SCH (09:00)
[2018-01-18] MEDS ORDERED: Lactobacillus Acidophilus/L. Spores Tablet PO SCH (09:00)
[2018-01-18] MEDS: Ciprofloxacin 0.3% Opth Drops 2.5 ML Bottle RIGHT EAR SCH (09:01)
[2018-01-18] MEDS: Budesonide-Formoterol 160/4.5 MCG 6 GM Inhaler INH SCH (09:01)
[2018-01-18] MEDS ORDERED: Senna/Docusate Sodium 8.6/50 MG Tablet PO SCH (10:15)
--- NOTE | 2018-01-18 10:15 | P.PN ---
Subjective Interval history: Follow-up for acute left otitis media and mastoiditis. Patient reports feeling slightly better today. She states her left ear is less painful today. Denies any fevers overnight. She states the drainage from her left ear has improved. She denies any significant pain with manipulation of the left ear. She states she plans to follow-up with her ENT physician Dr. Starr to consider replacing her tympanostomy tubes. The patient has no other medical complaints at this time. Physical Exam Vital signs: Vital Signs 01/17/18 10:49 01/17/18 11:00 01/17/18 16:00 Temperature 97.5 F L 97.5 F L 98.7 F Pulse Rate 115 H 115 H 100 H Respiratory Rate 15 16 24 Blood Pressure 158/88 H 158/88 H 170/95 H Pulse Oximetry 98 98 97 01/17/18 16:34 01/17/18 20:00 01/17/18 20:15 Temperature 98.5 F Pulse Rate 99 H Respiratory Rate 16 17 17 Blood Pressure 125/64 Pulse Oximetry 95 01/17/18 23:55 01/18/18 04:00 01/18/18 07:27 Temperature 97.6 F 98.2 F Pulse Rate 100 H 77 75 Respiratory Rate 16 17 20 Blood Pressure 132/77 162/84 H 134/69 Pulse Oximetry 97 95 95 Intake & Output 01/17/18 01/18/18 01/18/18 18:59 06:59 18:59 Intake Total 350 / 350 Balance 350 / 350 Weight 113.398 kg 113.398 kg Intake: IV 350 / 350 Azactam Inj 1,000 MG In NS Inj 100 / 100 100 ML @ 200 mls/hr IV.SIG ONCE ONE Rx#:[id number] Vancomycin Inj 1,000 MG In NS 250 / 250 Inj 250 ML @ 250 mls/hr IV.SIG ONCE ONE Rx#:[id number] Other: Weight On Admission 113.398 kg Narrative: GENERAL: Well-nourished, well-developed middle aged female patient in [facility]. SKIN: Warm and dry. No rash. HEENT: Normocephalic. Atraumatic. Pupils equal and round. Mucous membranes pink and moist. Left mastoid nontender today, no bulging or erythema. NECK: Supple. Trachea midline. CARDIOVASCULAR: Regular rate and rhythm. No murmur appreciated. RESPIRATORY: No accessory muscle use. Clear to auscultation. Breath sounds equal bilaterally. GASTROINTESTINAL: Abdomen soft, non-tender, nondistended. Normoactive bowel sounds x4. MUSCULOSKELETAL: No obvious deformities. Extremities without clubbing, cyanosis , or edema. NEUROLOGICAL: Awake and alert. No obvious cranial nerve deficits. Motor grossly within normal limits. Moving all extremities spontaneously. Normal speech. PSYCHIATRIC: Appropriate mood and affect; insight and judgment normal. Results - Labs CBC & Chem 7: 01/17/18 12:15 01/17/18 12:15 Laboratory Results - last 24 hr 01/17/18 01/17/18 01/17/18 12:15 12:15 15:21 WBC 13.1 H RBC 4.97 Hgb 11.8 Hct 36.7 MCV 73.9 L MCH 23.7 L MCHC 32.1 RDW 17.3 H Plt Count 501 H MPV 7.3 Neut % (Auto) 57.3 Lymph % (Auto) 32.2 [place] % (Auto) 6.7 Eos % (Auto) 2.5 Baso % (Auto) 1.3 Neut # (Auto) 7.5 Lymph # (Auto) 4.2 [place] # (Auto) 0.9 Eos # (Auto) 0.3 Baso # (Auto) 0.2 WBC Differential . Differential Comment Auto diff final Sodium 135 L Potassium 3.7 Chloride 101 Carbon Dioxide 26.0 Anion Gap 8 BUN 6 L Creatinine 0.61 Estimated GFR Greater than 89 Random Glucose 110 H Lactic Acid 2.9 H Calcium 8.6 Total Bilirubin Less than 0.1 L AST 21 ALT 25 Alkaline Phosphatase 166 H Total Protein 7.6 Albumin 3.3 L - Imaging Impressions Temporal Bone CT 01/17/18 12:18 CONCLUSION: 1. Findings most consistent with left-sided mastoiditis and otitis media. 2. Subcentimeter preauricular lymph nodes bilaterally, likely reactive. 3. Postsurgical features in the left anterior soft tissues. Assessment and Plan - Plan 42 year old female with a history of chronic otitis media who presents to the ED due to left ear, left sided headache and intractable pain. Patient was found to have tachycardia, elevated BP, leukocytosis. Sepsis with Acute mastoiditis, Left side otitis media: Meets sepsis criteria with leukocytosis WBC 13.1K, tachycardia HR 115, lactic acid 2.9, and suspect source-mastoiditis and otitis media. -S/p IV Vanco and IV Azactam in the ER -Will continue on IV Clindamycin 900mg q8h -Pain control with Acetaminophen, Percocet prn, and Dilaudid IV PRN -ENT consulted, seen by Dr. Lynne, recommended Cipro po and Ciprodex drops , cleared for discharge with outpatient f/up -Consult ID for antibiotics recommendations (patient with recurrent infections, allergies to antibiotics) Hx of Lupus/Allergies/Anxiety/Depression -Continue patient's Cybalta, Xanax. -Continue home meds for allergies -Outpatient f/up Hypertension: chronic, stable -Continue Amlodipine DVT Prophylaxis: SCDS. Discharge Planning: Discharge patient to home Condition on discharge: Stable Heart Healthy Diet as tolerated Ad Anca activity Rx written: Cipro 500mg po bid [id number], Ciprodex drops Follow-up with primary care physician and ENT Dr. Starr
--- NOTE | 2018-01-18 11:02 | P.CON ---
History of Present Illness Service: ENT Consult date: 01/18/18 Reason for Consult: Left otitis media, chronic mastoidtiis. Primary Care Provider: Do Damaso Archuleta Chief Complaint: Left ear, left sided headache PMFSH - History History Provided By: Patient - Medical History Medical History: Medical History (Last Reviewed 01/17/18 @ 11:05 by Cony Colon RN) Asthma Chronic neck and back pain H/O: hysterectomy Lupus - Surgical History Surgical History: Surgical History (Last Reviewed 01/17/18 @ 11:05 by Cony Colon RN) History of carpal tunnel surgery History of ear surgery Hx of sinus surgery - Tobacco History Second Hand Smoke Exposure: No Tobacco Use In Past 30 Days: Yes Smoking Status: Light tobacco smoker Tobacco Type: Cigarettes - Alcohol History How Often Do You Have a Drink Containing Alcohol: Never - Substance Use History Substance History: No History of Abuse - Travel History Recent Travel in the [place] Within the Last 8 Weeks: No Recent Travel Out of the Country Within the Last 8 Weeks: No - Immunization History Tetanus Immunization: Unsure Medications and Allergies Active Medications: Active Medications Acetaminophen (Tylenol) 650 mg PO Q4H PRN PRN Reason: Fever, headache, pain 1-4 Al Hydroxide/Mg Hydroxide (Milk Of Magnnuris Liq) 30 ml PO Q12H PRN PRN Reason: Mild Constipation Alprazolam (Xanax) 1 mg PO BID [facility] Last Admin: 01/18/18 09:00 Dose: 1 mg Amlodipine Besylate (Norvasc) 10 mg PO DAILY [facility] Last Admin: 01/18/18 09:00 Dose: 10 mg Bisacodyl (Dulcolax Supp) 10 mg RECTAL DAILY PRN PRN Reason: SEVERE CONSITIPATION Budesonide/Formoterol Fumarate (Symbicort 160/4.5 Mcg Inh) 2 puff INH BID [facility] Last Admin: 01/18/18 09:01 Dose: 2 puff Cetirizine HCl (Zyrtec) 10 mg PO DAILY [facility] Last Admin: 01/18/18 09:00 Dose: 10 mg Ciprofloxacin HCl (Ciloxan 0.3% Opth Drops) 3 drop RIGHT EAR BID [facility] Last Admin: 01/18/18 09:01 Dose: 3 drop Duloxetine HCl (Cymbalta) 120 mg PO DAILY [facility] Last Admin: 01/18/18 09:01 Dose: 120 mg Hydromorphone HCl (Dilaudid Pf Inj) 1 mg IV.PUSH Q4H PRN PRN Reason: BREAKTHROUGH PAIN Last Admin: 01/18/18 10:00 Dose: 1 mg Sodium Chloride (Ns Inj) 1,000 mls @ 0 mls/hr IV.SIG BOLUS [facility] Clindamycin/Sodium Chloride (Cleocin 900 Mg/Ns Premix) 900 mg in 50 mls @ 100 mls/hr IV.SIG Q8H [facility] Lactobacillus Acidophilus (Lactinex) 1 tab PO BID [facility] Last Admin: 01/18/18 09:00 Dose: 1 tab Lactulose (Lactulose Liq) 30 ml PO DAILY PRN PRN Reason: SEVERE CONSITIPATION Montelukast Sodium (Singulair) 10 mg PO QPM [facility] Ondansetron HCl (Zofran Inj) 4 mg IV.PUSH Q6H PRN PRN Reason: NAUSEA OR VOMITING Oxycodone/Acetaminophen (Percocet 7.5/325 Mg) 1 tab PO Q6H PRN PRN Reason: pain 5-10 Last Admin: 01/18/18 09:00 Dose: 1 tab Pantoprazole Sodium (Protonix) 40 mg PO DAILY [facility] Last Admin: 01/18/18 09:00 Dose: 40 mg Senna/Docusate Sodium (Afshan-Colace) 2 tab PO BID [facility] Sennosides (Senokot) 17.2 mg PO Q12H PRN PRN Reason: Moderate Constipation Allergies Allergy/AdvReac Type Severity Reaction Status Date / Time aspirin Allergy Severe WHEEZES Verified 11/30/17 00:30 bismuth subsalicylate Allergy Severe Anaphylaxis Verified 11/30/17 00:30 diatrizoate meglumine Allergy Severe Anaphylaxis Verified 11/30/17 00:30 diphenhydramine Allergy Severe Respiratory Verified 11/30/17 00:30 Failure fentanyl Allergy Severe itching Verified 11/30/17 00:30 gadobenic acid Allergy Severe Anaphylaxis Verified 11/30/17 00:30 gadodiamide Allergy Severe Anaphylaxis Verified 11/30/17 00:30 gadoteridol Allergy Severe Anaphylaxis Verified 11/30/17 00:30 ibuprofen Allergy Severe Respiratory Verified 11/30/17 00:30 Failure iodixanol Allergy Severe Anaphylaxis Verified 11/30/17 00:30 iohexol Allergy Severe Anaphylaxis Verified 11/30/17 00:30 mesalamine Allergy Severe Anaphylaxis Verified 11/30/17 00:30 metoclopramide Allergy Severe Anaphylaxis Verified 11/30/17 00:30 penicillin G Allergy Severe THROAT Verified 11/30/17 00:30 CLOSES Sulfa (Sulfonamide Allergy Severe Wheezing Verified 11/30/17 00:30 Antibiotics) tramadol AdvReac Severe Wheezing Verified 11/30/17 00:30 MACADAMIA NUTS Allergy Severe Wheezing Uncoded 10/24/17 00:38 Home Medications Medication Instructions Recorded Confirmed Type albuterol sulfate 1.25 mg INHALATION QID PRN 10/24/17 01/17/18 History alprazolam [Xanax] 1 mg PO BID 10/24/17 01/17/18 History cetirizine [Zyrtec] 10 mg PO DAILY 10/24/17 01/17/18 History duloxetine [Cymbalta] 120 mg PO DAILY 10/24/17 01/17/18 History fluticasone-salmeterol [Advair 1 inh INHALATION BID 10/24/17 01/17/18 History Diskus] lansoprazole [Prevacid] 30 mg PO DAILY 10/24/17 01/17/18 History montelukast [Singulair] 10 mg PO QPM 10/24/17 01/17/18 History oxycodone-acetaminophen [Percocet] 1 tab PO Q4H PRN 10/24/17 01/17/18 History amlodipine 10 mg PO DAILY 11/30/17 01/17/18 History Physical Exam Vital signs: Vital Signs 01/17/18 16:00 01/17/18 16:34 01/17/18 20:00 Temperature 98.7 F 98.5 F Pulse Rate 100 H 99 H Respiratory Rate 24 16 17 Blood Pressure 170/95 H 125/64 Pulse Oximetry 97 95 01/17/18 20:15 01/17/18 23:55 01/18/18 04:00 Temperature 97.6 F Pulse Rate 100 H 77 Respiratory Rate 17 16 17 Blood Pressure 132/77 162/84 H Pulse Oximetry 97 95 01/18/18 07:27 Temperature 98.2 F Pulse Rate 75 Respiratory Rate 20 Blood Pressure 134/69 Pulse Oximetry 95 Intake & Output 01/17/18 01/18/18 01/18/18 18:59 06:59 18:59 Intake Total 350 / 350 Balance 350 / 350 Weight 113.398 kg 113.398 kg Intake: IV 350 / 350 Azactam Inj 1,000 MG In NS Inj 100 / 100 100 ML @ 200 mls/hr IV.SIG ONCE ONE Rx#:[id number] Vancomycin Inj 1,000 MG In NS 250 / 250 Inj 250 ML @ 250 mls/hr IV.SIG ONCE ONE Rx#:[id number] Other: Weight On Admission 113.398 kg Assessment and Plan - Plan Consult dictated. Acute otitis media with spontaneous keft ear drainage. Mastoid findings are chronic. Can discharge home on oral Cipro and Ciprodex drops. Has follow up with Dr Starr.
--- NOTE | 2018-01-18 11:19 | MH ---
cc: Zoran Lynne MD DATE OF ADMISSION: 01/17/2018 CHIEF COMPLAINT: Left ear pain, left headache. HISTORY OF PRESENT ILLNESS: This is a 42-year-old female. She has a history of chronic mastoiditis on the left and has previous excisions for her ear. She is followed in the ENT office with Dr. Starr. She also has chronic sinusitis. Most recently, she was seen in December with evidence of sinus infection and has been doing irrigations with gentamicin topically for sinusitis. For several days, the patient developed increasing pain and pressure at her left ear and felt pain in the mastoid area as well as deep within the ear itself. She presented to the emergency department after she had increased swelling and pain. She showed a white blood cell count evidencing 13.1. She had a CT of the temporal bones completed on admission that shows at the left ear the ossicle is intact. The oval window intact. There was diffuse opacification of the mastoid air cells and evidence of swelling more at the external ear and less of the middle ear. The patient reports that she had increasing pain and pressure and had sudden drainage from her left ear. The spontaneous drainage did cause some relief; and now in the hospital, she received 1 dose of steroids. This helped her swelling, but it also made her feel agitated and she is no longer on steroids. She has been on IV antibiotic therapy and she does feel that she is improved at this point. PAST MEDICAL HISTORY: Significant for chronic sinusitis, chronic mastoiditis. She has had evidence of chronic mastoid changes on a CT of the temporal bone and the sinuses in 2016. The patient also is on chronic pain control. PHYSICAL EXAMINATION: GENERAL: She is a well-developed female who currently is in no distress. She feels better with diminished pain, although it is not resolved. HEENT: The facial nerve is intact bilaterally and equal. The external ear and the external ear canal on the right are clear. The right tympanic membrane shows no drainage. There is some edema of the left ear canal, but no evidence of active drainage. The left mastoid is flat without evidence of swelling or inflammation. Lips, oral mucosa, and oropharynx show no lesion. NECK: The neck shows no significant masses. ASSESSMENT AND PLAN: A 42-year-old female who has a history of chronic mastoiditis, chronic otitis media, and chronic sinusitis. Acutely, she appears to have had otitis media and external otitis. There is no evidence of acute mastoiditis. I believe what happened to Jada is that she developed otitis media and then had spontaneous drainage from the tympanic membrane. This has helped her to start her improvement. At this point, she can come off of IV therapy and she can be sent home on oral antibiotics, Cipro should be appropriate with the Ciprodex drops for the left ear. She would need to continue appropriate pain control; and she can follow up with Dr. Starr in the ENT office, I believe she has an appointment later this week or next week already scheduled. Thank you for allowing me to participate in her care. Zoran Lynne MD JPM/rs , 10:54 AM , 11:01 AM
[2018-01-18 11:44] VITALS: BP 147/87; RESP 18; TEMP 98; O2SAT 98
--- NOTE | 2018-01-18 11:49 | P.PNID ---
Subjective Remarks: ID consult dictated. Patient seen and examined. Patient with chronic mastoiditis/ left internal otitis. Recommend: Okay to discharge with Cipro ear drops. Follow up with ENT. Allergies/Adverse Reactions: Allergies aspirin Allergy (Severe, Verified 11/30/17 00:30) WHEEZES bismuth subsalicylate Allergy (Severe, Verified 11/30/17 00:30) Anaphylaxis cannot breath diatrizoate meglumine Allergy (Severe, Verified 11/30/17 00:30) Anaphylaxis diphenhydramine Allergy (Severe, Verified 11/30/17 00:30) Respiratory Failure fentanyl Allergy (Severe, Verified 11/30/17 00:30) itching gadobenic acid Allergy (Severe, Verified 11/30/17 00:30) Anaphylaxis gadodiamide Allergy (Severe, Verified 11/30/17 00:30) Anaphylaxis gadoteridol Allergy (Severe, Verified 11/30/17 00:30) Anaphylaxis ibuprofen Allergy (Severe, Verified 11/30/17 00:30) Respiratory Failure iodixanol Allergy (Severe, Verified 11/30/17 00:30) Anaphylaxis iohexol Allergy (Severe, Verified 11/30/17 00:30) Anaphylaxis mesalamine Allergy (Severe, Verified 11/30/17 00:30) Anaphylaxis "I'M NOT SURE IF I'M ALLERGIC TO THAT" metoclopramide Allergy (Severe, Verified 11/30/17 00:30) Anaphylaxis PT STATMENT, "I JUST HAD A BAD REACTION TO IT" penicillin G Allergy (Severe, Verified 11/30/17 00:30) THROAT CLOSES Sulfa (Sulfonamide Antibiotics) Allergy (Severe, Verified 11/30/17 00:30) Wheezing tramadol Adverse Reaction (Severe, Verified 11/30/17 00:30) Wheezing MACADAMIA NUTS Allergy (Severe, Uncoded 10/24/17 00:38) Wheezing Objective Vital Signs 01/17/18 16:00 01/17/18 16:34 01/17/18 20:00 Temperature 98.7 F 98.5 F Pulse Rate 100 H 99 H Respiratory Rate 24 16 17 Blood Pressure 170/95 H 125/64 Pulse Oximetry 97 95 01/17/18 20:15 01/17/18 23:55 01/18/18 04:00 Temperature 97.6 F Pulse Rate 100 H 77 Respiratory Rate 17 16 17 Blood Pressure 132/77 162/84 H Pulse Oximetry 97 95 01/18/18 07:27 01/18/18 11:42 Temperature 98.2 F 98.0 F Pulse Rate 75 75 Respiratory Rate 20 18 Blood Pressure 134/69 147/87 H Pulse Oximetry 95 98 Intake & Output 01/17/18 01/18/18 01/18/18 18:59 06:59 18:59 Intake Total 350 / 350 106 / 106 Balance 350 / 350 106 / 106 Weight 113.398 kg 113.398 kg Intake: IV 350 / 350 106 / 106 Azactam Inj 1,000 MG In NS Inj 100 / 100 100 ML @ 200 mls/hr IV.SIG ONCE ONE Rx#:[id number] Cleocin Inj 900 MG In NS Inj 106 / 106 100 ML @ 100 mls/hr IV.SIG Q8H ANÍBAL Rx#:[id number] Vancomycin Inj 1,000 MG In NS 250 / 250 Inj 250 ML @ 250 mls/hr IV.SIG ONCE ONE Rx#:[id number] Other: Weight On Admission 113.398 kg 01/17/18 15:21 Blood - Peripheral Aerobic Blood Culture - Preliminary No growth in 1 day 01/17/18 15:21 Blood - Peripheral Anaerobic Blood Culture - Preliminary No growth in 1 day 01/17/18 15:20 Blood - Peripheral Aerobic Blood Culture - Preliminary No growth in 1 day 01/17/18 15:20 Blood - Peripheral Anaerobic Blood Culture - Preliminary No growth in 1 day Lab - Hematology Results 01/17/18 12:15 WBC 13.1 H RBC 4.97 Hgb 11.8 Hct 36.7 MCV 73.9 L MCH 23.7 L MCHC 32.1 RDW 17.3 H Plt Count 501 H MPV 7.3 Neut % (Auto) 57.3 Lymph % (Auto) 32.2 [place] % (Auto) 6.7 Eos % (Auto) 2.5 Baso % (Auto) 1.3 Neut # (Auto) 7.5 Lymph # (Auto) 4.2 [place] # (Auto) 0.9 Eos # (Auto) 0.3 Baso # (Auto) 0.2 WBC Differential . Differential Comment Auto diff final Lab - Chemistry Results 01/17/18 01/17/18 12:15 15:21 Sodium 135 L Potassium 3.7 Chloride 101 Carbon Dioxide 26.0 Anion Gap 8 BUN 6 L Creatinine 0.61 Estimated GFR Greater than 89 Random Glucose 110 H Lactic Acid 2.9 H Calcium 8.6 Total Bilirubin Less than 0.1 L AST 21 ALT 25 Alkaline Phosphatase 166 H Total Protein 7.6 Albumin 3.3 L Imaging: ITS Impressions Temporal Bone CT 01/17/18 12:18 CONCLUSION: 1. Findings most consistent with left-sided mastoiditis and otitis media. 2. Subcentimeter preauricular lymph nodes bilaterally, likely reactive. 3. Postsurgical features in the left anterior soft tissues.
--- NOTE | 2018-01-18 12:33 | MB ---
cc: Ignacio Paige MD DATE: 01/18/2018 REQUESTING PHYSICIAN: Dr. Knox. REASON FOR VISIT: Mastoiditis. HISTORY OF PRESENT ILLNESS: THE PATIENT HAS ALLERGY TO PENICILLIN. She is a 42-year-old white female who has a history of recurrent ear infections. The patient presented to the emergency department with left ear pain and drainage coming from the left ear. She follows up with an ENT physician as an outpatient and saw that physician approximately 3 weeks ago. At that time, she was having some nasal drainage and she was given topical irrigation. She then saw her primary physician who put her on Levaquin about a week ago. The patient noticed that 2 days ago she started having some white drainage coming from the left ear, along with pain. The patient states that she had fever about a week ago. She denies nausea or vomiting. The patient had a CT scan of the temporal bones. The CT scan showed findings consistent with left-sided mastoiditis and otitis media. The patient was evaluated by ear, nose, and throat specialist. They recommend use of Cipro ear drops to the left ear. The patient was started on IV clindamycin. PAST MEDICAL HISTORY: 1. Chronic sinusitis. 2. Chronic mastoiditis. 3. History of reconstruction of the mastoid bones and sinuses in 2016. 4. Lupus erythematosus. 5. Chronic right leg tibia wound. 6. Hysterectomy. 7. Carpal tunnel surgery. ALLERGIES: 1. ASPIRIN. 2. PENICILLIN G. 3. SULFA. 4. BISMUTH SUBSALICYLATE. 5. DIATRIZOATE MEGLUMINE. 6. DIPHENHYDRAMINE. 7. FENTANYL 8. GADOBENIC ACID. 9. GADODIAMIDE. 10. GADOTERIDOL. 11. IBUPROFEN. 12. IODIXANOL. 13. IOHEXOL 14. MESALAMINE. 15. METOCLOPRAMIDE. 16. TRAMADOL. 17. MACADAMIA NUTS. SOCIAL HISTORY: Positive tobacco. No alcohol. No illicit drugs. FAMILY HISTORY: Noncontributory. REVIEW OF SYSTEMS: All systems have been reviewed and are negative, except for that mentioned in the history of present illness. PHYSICAL EXAMINATION: GENERAL: This is a well-developed female; moderately obese, in no acute distress. VITAL SIGNS: Includes temperature 98.2, BP 134/69, respirations 20, heart rate 75. HEENT: Head is atraumatic. Extraocular movements grossly intact. Pupils reactive to light. No icterus. The left ear has some swelling and there is tenderness on palpation of the posterior aspect of the left temporal area beyond the ear is is swollen mildly and has tenderness on palpation. Oropharynx mucosa moist. No visible lesions. NECK: Supple without adenopathy. LUNGS: Clear to auscultation. HEART: Regular S1, S2, without murmurs. ABDOMEN: Bowel sounds present. Soft, obese, nontender. RECTAL: Not performed. EXTREMITIES: No clubbing, cyanosis or edema. SKIN: No rash. NEUROLOGIC: No gross focal findings. PSYCHIATRIC: The patient is calm and pleasant and cooperative. LABORATORY DATA: WBC 13.1, platelet count 501, hemoglobin 11.8, 57% neutrophils, 32% lymphocytes, 6% monocytes. Creatinine 0.61, BUN 6, sodium 135. IMPRESSION: 1. Chronic mastoiditis and left otitis media. 2. PENICILLIN ALLERGY. RECOMMENDATIONS: As per ENT recommendations, they recommend the patient be given the eardrops with Cipro otic solution and followup with her ENT physician. She has an appointment for 02/20/2018 with ENT. She can be discharged from ID standpoint. Thank you for this consultation. MD EDSON Thurston/elinor , 11:46 AM , 12:01 PM
[2018-01-18] MEDS ORDERED: HYDROmorphone PF Inj 2 MG/ML Vial IV.PUSH ONE (12:45)
[2018-01-18] MEDS ORDERED: Montelukast 10 MG Tablet PO SCH (18:00)
== END 2018-01-18 16:20 | disposition home or self-care (01) ==
LOC: NEPB 10:46 → NEDA 10:46 → NEPHCDU 17:33
PROVIDERS: ADMIT Hospitalist; ATTEND Hospitalist